=== PATIENT | female | born 1955 | race African-American/Black ===

== ENCOUNTER 2016-08-19 08:56 | Emergency (ER) | payer MEDICAID ==
[~2016-08-19 08:56] MED LIST: ALBU6.7H INH; ALBU8I INH; AZIT250T43 PO; ECOT81TA2 PO; FURO1TAB93 PO; KCL20 PO; LISI10 PO; METO25 PO; PRED50 PO; TIOT18I INH
[2016-08-19 09:02] VITALS: BP 131/84; PULSE 64; RESP 18; TEMP 97.9; O2SAT 98
[2016-08-19] MEDS ORDERED: ASPI81TA81 PO (09:11)
[2016-08-19] MEDS ORDERED: LISI10TA3 PO (09:11)
[2016-08-19] MEDS ORDERED: METO25TA3 PO (09:11)
[2016-08-19] MEDS ORDERED: SPIRCAP INH (09:11)
[2016-08-19] MEDS ORDERED: VENTAER INH (09:11)
[2016-08-19] MEDS ORDERED: FURO1TAB60 PO (09:11)
--- NOTE | 2016-08-19 09:22 | PD ---
HPI Chief Complaint: Chest Pain Time Seen by Provider: 09:22 Travel History International Travel<30 days: No Contact w/Intl Traveler<30days: No Traveled to known affect area: No History of Present Illness HPI 60-year-old female came to the emergency room brought by EMS with history of right sided shoulder pain. Patient says this has been going on for past 3 days. She cannot recall what could've caused the pain. She doesn't think she injured herself. She says she drank some alcohol last night but otherwise does not do any drugs. She was told in [place] last year that she needed stents and coronary arteries but she refused at that time. I specifically asked her if she has done cocaine recently and she denied. Patient says she has been very tired lately. [facility] Past Medical History Narrative Medical List of her past medical, surgical, social and family history was reviewed from the nursing note. Arthritis: No Asthma: Yes Autoimmune Disease: No Blood Disorders: No Anxiety: Yes Depression: Yes Heart Rhythm Problems: No Cancer: Yes (BREAST) Cardiovascular Problems: Yes High Cholesterol: No Chemotherapy: Yes Chest Pain: No Congestive Heart Failure: Yes COPD: Yes Cerebrovascular Accident: No Diabetes: No Diminished Hearing: No Endocrine: No GERD: Yes Glaucoma: No Genitourinary: No Headaches: No Hepatitis: No Hiatal Hernia: No Hypertension: Yes Immune Disorder: No Kidney Stones: No Musculoskeletal: No Neurologic: No Psychiatric: No Reproductive: No Respiratory: Yes Migraines: No Myocardial Infarction: No Radiation Therapy: Yes Renal Failure: No Seizures: No Sickle Cell Disease: No Sleep Apnea: No Thyroid Disease: No Ulcer: No Past Surgical History Abdominal Surgery: Yes AICD: No Appendectomy: Yes Arteriovenous Shunt: No Cardiac Surgery: No Ear Surgery: No Endocrine Surgery: No Eye Surgery: No Genitourinary Surgery: No Gynecologic Surgery: No Hysterectomy: Yes Insulin Pump: No Joint Replacement: No Mastectomy: Yes (LEFT) Oral Surgery: No Pacemaker: No Thoracic Surgery: No Other Surgery: Yes (LYMPH NODE REMOVAL LT) Social History Alcohol Use: Yes (2/DAY) Tobacco Use: No Substance Use: No Allergies-Medications (Allergen,Severity, Reaction): Coded Allergies: Taxol (Verified Adverse Reaction, Severe, Anaphylaxis, 07/27/15) Comments List of her allergies reviewed from the nursing note. Reported Meds & Prescriptions Reported Meds & Active Scripts Active Reported Ventolin Hfa 18 GM Inh (Albuterol Sulfate) 90 Mcg/Act Aer 2 Puff INH Q4H PRN Spiriva Handihaler (Tiotropium Inh) 18 Mcg Cap 18 Mcg INH DAILY 1 capsule = 18 mcg Lisinopril 10 Mg Tab 10 Mg PO DAILY Metoprolol Tartrate 25 Mg Tab 25 Mg PO BID Lasix (Furosemide) 40 Mg Tab 40 Mg PO DAILY Aspir-81 (Aspirin) 81 Mg Tabdr 81 Mg PO DAILY Narrative Medication List of her home medications reviewed from the nursing note. Review of Systems Except as stated in HPI: all other systems reviewed are Neg Physical Exam Narrative GENERAL: Sleepy but wakes up upon calling her name, alert, mild distress SKIN: Focused skin assessment warm/dry. HEAD: Atraumatic. Normocephalic. EYES: Pupils equal and round. No scleral icterus. No injection or drainage. ENT: No nasal bleeding or discharge. Mucous membranes pink and moist. NECK: Trachea midline. No JVD. CARDIOVASCULAR: Regular rate and rhythm. No murmur appreciated. RESPIRATORY: No accessory muscle use. Clear to auscultation. Breath sounds equal bilaterally. Tenderness on palpation over the right clavicle. GASTROINTESTINAL: Abdomen soft, non-tender, nondistended. Hepatic and splenic margins not palpable. MUSCULOSKELETAL: No obvious deformities. No clubbing. No cyanosis. No edema. NEUROLOGICAL: Sleepy and tired looking but wakes up upon calling her name. No obvious cranial nerve deficits. Motor grossly within normal limits. Normal speech. PSYCHIATRIC: Appropriate mood and affect; insight and judgment normal. Data Data Last Documented VS Vital Signs Date Time Temp Pulse Resp B/P Pulse Ox O2 Delivery O2 Flow Rate FiO2 08/19/16 14:09 65 18 130/90 98 08/19/16 10:58 Room Air 08/19/16 09:02 97.9 Orders Electrocardiogram (08/19/16 09:22) Basic Metabolic Panel (Bmp) (08/19/16 09:22) Ckmb (Isoenzyme) Profile (08/19/16 09:22) Complete Blood Count With Diff (08/19/16 09:22) Magnesium (Mg) (08/19/16 09:22) Prothrombin Time / Inr (Pt) (08/19/16 09:22) Troponin I (08/19/16 09:22) Chest, Single Ap (08/19/16 09:22) Ecg Monitoring (08/19/16 09:22) Bilateral Bp Monitoring (08/19/16 09:22) Iv Access Insert/Monitor (08/19/16 09:22) Oximetry (08/19/16 09:22) Oxygen Administration (08/19/16 09:22) Sodium Chloride 0.9% Flush (Ns Flush) (08/19/16 09:30) Drug Screen, Random Urine (08/19/16 09:38) Aspirin Chew (Aspirin Chew) (08/19/16 09:45) Potassium Chloride (Kcl) (08/19/16 10:45) Ct Pulmonary Angiogram (08/19/16 ) Iohexol 350 Inj (Omnipaque 350 Inj) (08/19/16 12:24) Labs Laboratory Tests Test 08/19/16 08/19/16 09:15 09:50 White Blood Count 6.5 TH/MM3 Red Blood Count 4.51 MIL/MM3 Hemoglobin 12.6 GM/DL Hematocrit 38.1 % Mean Corpuscular Volume 84.5 FL Mean Corpuscular Hemoglobin 27.9 PG Mean Corpuscular Hemoglobin 33.0 % Concent Red Cell Distribution Width 15.3 % Platelet Count 249 TH/MM3 Mean Platelet Volume 9.9 FL Neutrophils (%) (Auto) 58.3 % Lymphocytes (%) (Auto) 29.8 % Monocytes (%) (Auto) 8.8 % Eosinophils (%) (Auto) 2.0 % Basophils (%) (Auto) 1.1 % Neutrophils # (Auto) 3.8 TH/MM3 Lymphocytes # (Auto) 1.9 TH/MM3 Monocytes # (Auto) 0.6 TH/MM3 Eosinophils # (Auto) 0.1 TH/MM3 Basophils # (Auto) 0.1 TH/MM3 CBC Comment DIFF FINAL Differential Comment Prothrombin Time 11.3 SEC Prothromb Time International 1.0 RATIO Ratio Sodium Level 138 MEQ/L Potassium Level 3.0 MEQ/L Chloride Level 104 MEQ/L Carbon Dioxide Level 24.4 MEQ/L Anion Gap 10 MEQ/L Blood Urea Nitrogen 19 MG/DL Creatinine 0.95 MG/DL Estimat Glomerular Filtration 73 ML/MIN Rate Random Glucose 112 MG/DL Calcium Level 8.6 MG/DL Magnesium Level 1.8 MG/DL Total Creatine Kinase 61 U/L Troponin I 0.02 NG/ML Urine Opiates Screen NEG Urine Barbiturates Screen NEG Urine Amphetamines Screen NEG Urine Benzodiazepines Screen NEG Urine Cocaine Screen POS Urine Cannabinoids Screen NEG MDM Medical Decision Making Medical Screen Exam Complete: Yes Emergency Medical Condition: Yes Medical Record Reviewed: Yes Interpretation(s) Twelve-lead EKG was reviewed by me normal sinus rhythm, left axis deviation, anterior lateral T wave inversion. Heart rate of 62 bpm. Differential Diagnosis Nasal lesion, pneumonia, atelectasis Narrative Course 2:04 PM blood test results of back and within normal limit. Her troponin is negative. Patient has tested positive for cocaine in her urine drug screen. CT chest was done which does not show any embolism or dissection. I will discharge her home at this point given her chest pain being on the right shoulder and clavicular area. Procedures EKG Prior to Arrival: No Diagnosis Primary Impression: Right shoulder pain Qualified Code: M25.511 - Acute pain of right shoulder Additional Impression: Cocaine abuse Referrals: Primary Care Physician Additional Instructions: Please return to the ER if the condition worsens or any other new concerns. Otherwise follow-up with her primary care. Disposition: 01 DISCHARGE HOME Condition: Stable Liz Lucio MD Aug 19, 2016 09:22 Liz Lucio MD Aug 19, 2016 09:22
[2016-08-19] MEDS ORDERED: SODIUM CHLORIDE 0.9% FLUSH 10 ML FLUSH IVF PRN (09:30)
[2016-08-19] MEDS ORDERED: ASPIRIN 81 MG CHEW TAB CHEW ONE (09:45)
[2016-08-19 09:54] LABS: AUTOMATED NEUTROPHIL # 3.8 TH/MM3 (1.8-7.7); BASOPHIL # 0.1 TH/MM3 (0-0.2); BASOPHIL % 1.1 % (0.0-2.0); EOSINOPHIL # 0.1 TH/MM3 (0-0.4); HEMATOCRIT 38.1 % (35.0-46.0); HEMO FLAGS DIFF FINAL; LYMPH % 29.8 % (9.0-44.0); LYMPHOCYTE # 1.9 TH/MM3 (1.0-4.8); MEAN CELL VOLUME 84.5 FL (80.0-100.0); MEAN CORPUSCULAR HEMOGLOBIN 27.9 PG (27.0-34.0); MONO % 8.8 % (0.0-8.0); NEUT % 58.3 % (16.0-70.0); PLATELET COUNT 249 TH/MM3 (150-450); RED BLOOD COUNT 4.51 MIL/MM3 (4.00-5.30); RED CELL DISTRIBUTION WIDTH 15.3 % (11.6-17.2); WHITE BLOOD COUNT 6.5 TH/MM3 (4.0-11.0)
[2016-08-19 10:02] LABS: PROTHROMBIN TIME - PATIENT 11.3 SEC (9.8-11.6)
--- NOTE | 2016-08-19 10:02 | RADRPT ---
EXAM DATE/TIME: 08/19/2016 09:20 [facility] COMPARISON: CHEST SINGLE AP, July 27, 2015, 23:08. INDICATIONS : Shortness of breath, with cough. MEDICAL HISTORY : Carcinoma, breast. SURGICAL HISTORY : Left side lymph node removal. ENCOUNTER: Initial ACUITY: 1 day PAIN SCORE: 0/10 LOCATION: Left chest FINDINGS: The lungs are clear. The heart is minimally enlarged. The pulmonary vascularity is normal. There is n o evidence for infiltrate or failure. The portion of the bony skeleton visualized is unremarkable. CONCLUSION: Compensated cardiomegaly otherwise negative Be Oseguera MD FACR on August 19, 2016 at 9:58 Board Certified Radiologist. This report was verified electronically.
[2016-08-19 10:17] LABS: BICARBONATE 24.4 MEQ/L (21.0-32.0); MAGNESIUM 1.8 MG/DL (1.5-2.5)
[2016-08-19 10:32] LABS: AMPHETAMINE, URINE NEG (NEG); BARBITURATES, URINE NEG (NEG); COCAINE, URINE POS (NEG)
[2016-08-19] MEDS ORDERED: POTASSIUM CHLORIDE 20 MEQ CONTROLLED RELEASE TAB PO ONE (10:45)
--- NOTE | 2016-08-19 10:54 | EKG ---
Date Performed: 08/19/2016 Time Performed: 09:07:48 PTAGE: 60 years EKG: Sinus rhythm LEFT ATRIAL ENLARGEMENT BORDERLINE LEFT AXIS DEVIATION POSSIBLE RIGHT VENTRICULAR CONDUCTION DELAY L EFT VENTRICULAR HYPERTROPHY AND ST-T CHANGE ABNORMAL ECG PREVIOUS TRACING : 07/27/2015 23.03 DOCTOR: Jhonatan Vigil Interpretating Date/Time 08/19/2016 10:52:53
[2016-08-19 10:58] VITALS: BP 134/80; PULSE 66; RESP 22; O2SAT 97
[2016-08-19] MEDS ORDERED: IOHEXOL 350 MG/ML 10 ML VIAL (for RAD DIAG) IV ONE (12:24)
[2016-08-19 12:57] VITALS: PULSE 64; RESP 18
--- NOTE | 2016-08-19 13:14 | RADRPT ---
EXAM DATE/TIME: 08/19/2016 12:12 [facility] COMPARISON: No previous studies available for comparison. INDICATIONS : Shortness of breath, weakness. IV CONTRAST: 50 cc Omnipaque 350 (iohexol) IV RADIATION DOSE: 6.47 CTDIvol (mGy) MEDICAL HISTORY : Carcinoma, breast. Hypertension. Chronic obstructive pulmonary disease. SURGICAL HISTORY : Hysterectomy. Appendectomy.Mastectomy ENCOUNTER: Initial ACUITY: 3 days PAIN SCALE: 0/10 LOCATION: chest TECHNIQUE: Volumetric scanning of the chest was performed using a pulmonary embolism protocol MIP images were re constructed. Using automated exposure control and adjustment of the mA and/or kV according to patien t size, radiation dose was kept as low as reasonably achievable to obtain optimal diagnostic quality images. DICOM format image data is available electronically for review and comparison. FINDINGS: PULMONARY ARTERIES: No filling defects are seen in the pulmonary arteries through the segmental level. LUNGS: Central lobar emphysema bilaterally. Mild infiltrate in the left lung base. There is bibasilar atelec tasis with mild pleural thickening in both lung bases. PLEURAE: Mild pleural thickening in both lung bases. No definite effusions. MEDIASTINUM: There is good visualization of the great vessels of the middle mediastinum. No evidence of mediastin al or hilar adenopathy/mass. A few nonspecific mediastinal lymph nodes are demonstrated. The heart si ze is diffusely enlarged. MUSCULOSKELETAL: Within normal limits for patient age. MISCELLANEOUS: The visualized upper abdominal organs demonstrate no acute abnormality. CONCLUSION: 1. No evidence of pulmonary embolism. 2. Central lobar emphysema with a mild infiltrate in the left lung base. 3. Mild bibasilar atelectasis with some pleural thickening. 4. Compensated cardiomegaly. Ant Pickering MD on August 19, 2016 at 13:08 Board Certified Radiologist. This report was verified electronically.
[2016-08-19 13:52] VITALS: PULSE 68; RESP 22
[2016-08-19 14:09] VITALS: BP 130/90
== END 2016-08-19 14:12 | disposition home or self-care (01) ==
LOC: NEPE 08:56
DX: M25.511 Pain in right shoulder (principal); F14.10 Cocaine abuse, uncomplicated; R06.02 Shortness of breath; I50.9 Heart failure, unspecified; R05 Cough; J44.9 Chronic obstructive pulmonary disease, unspecified; I10 Essential (primary) hypertension; K21.9 Gastro-esophageal reflux disease without esophagitis; R94.31 Abnormal electrocardiogram [ECG] [EKG]; Z85.3 Personal history of malignant neoplasm of breast
CPT/HCPCS: 71010; 71275; 80048; 80307; 82550; 83735; 84484; 85025; 85610; 93005; 99285; Q9967

== ENCOUNTER 2017-06-27 22:04 | Emergency (ER) | payer MEDICAID ==
[~2017-06-27] VITALS: Ht 167.6 cm; Wt 70.0 kg
[~2017-06-27 22:04] MED LIST changes: -ALBU6.7H INH; -ALBU8I INH; +ASPI81TA81 PO; -AZIT250T43 PO; -ECOT81TA2 PO; +FURO1TAB60 PO; -FURO1TAB93 PO; -KCL20 PO; -LISI10 PO; +LISI10TA3 PO; -METO25 PO; +METO25TA3 PO; -PRED50 PO; +SPIRCAP INH; -TIOT18I INH; +VENTAER INH
[2017-06-27 22:15] VITALS: BP 188/100; PULSE 86; RESP 20; TEMP 98; O2SAT 98
[2017-06-27 22:17] VITALS: BP 175/123; PULSE 84; RESP 20; O2SAT 98
[2017-06-27 22:22] VITALS: RESP 20
--- NOTE | 2017-06-27 22:37 | PD ---
HPI Chief Complaint: Abdominal Pain Time Seen by Provider: 22:18 Travel History International Travel<30 days: No Contact w/Intl Traveler<30days: No Traveled to known affect area: No History of Present Illness HPI The patient is a 61 year old female who presents to the [facility] emergency department with a history of abdominal pain that began after eating approximately 2 hours ago. The patient reports that the pain is severe and has been constant. The patient reports that the pain is sharp in character and present all over her abdomen. She reports that she has had nausea and vomiting 5 times since the onset. She denies having any diarrhea currently, however she did have diarrhea last week. She is unsure when she last moved her bowels. She reports that she has had an appendectomy, otherwise no other abdominal surgeries. She denies having any known recent fevers, dysuria, hematuria, urinary urgency, or frequency. On review of systems otherwise, she denies having any cough, congestion, neck pain, chest pain, shortness of breath, or neurologic symptoms. [facility] Past Medical History Narrative Medical The patient's past medical history is significant for hypertension, COPD, history of a nonischemic cardiomyopathy with an ejection fraction of approximately 25%, history of left breast cancer status post chemotherapy and radiation therapy in 2007. Arthritis: No Asthma: Yes Autoimmune Disease: No Blood Disorders: No Anxiety: Yes Depression: Yes Heart Rhythm Problems: No Cancer: Yes (BREAST) Cardiovascular Problems: Yes High Cholesterol: No Chemotherapy: Yes Chest Pain: No Congestive Heart Failure: Yes COPD: Yes Cerebrovascular Accident: No Diabetes: No Diminished Hearing: No Endocrine: No GERD: Yes Glaucoma: No Genitourinary: No Headaches: No Hepatitis: No Hiatal Hernia: No Hypertension: Yes Immune Disorder: No Kidney Stones: No Musculoskeletal: No Neurologic: No Psychiatric: No Reproductive: No Respiratory: Yes Immunizations Current: Yes Migraines: No Myocardial Infarction: No Radiation Therapy: Yes Renal Failure: No Seizures: No Sickle Cell Disease: No Sleep Apnea: No Thyroid Disease: No Ulcer: No Tetanus Vaccination: < 5 Years Influenza Vaccination: Yes ?: Not Past Surgical History Narrative Surgical The patient's past surgical history is significant for an appendectomy, axillary lymph node dissection Abdominal Surgery: Yes AICD: No Appendectomy: Yes Arteriovenous Shunt: No Cardiac Surgery: No Ear Surgery: No Endocrine Surgery: No Eye Surgery: No Genitourinary Surgery: No Gynecologic Surgery: No Hysterectomy: Yes Insulin Pump: No Joint Replacement: No Mastectomy: Yes (LEFT) Oral Surgery: No Pacemaker: No Thoracic Surgery: No Other Surgery: Yes (LYMPH NODE REMOVAL LT) Social History Alcohol Use: Yes (2/DAY) Tobacco Use: No Substance Use: No Allergies-Medications (Allergen,Severity, Reaction): Coded Allergies: paclitaxel (Unverified Adverse Reaction, Severe, Anaphylaxis, 06/27/17) Reported Meds & Prescriptions Reported Meds & Active Scripts Active Phenergan (Promethazine HCl) 25 Mg Tablet 25 Mg PO Q8HR PRN Macrobid (Nitrofurantoin Monoh/Nitrofur Macro) 100 Mg Cap 100 Mg PO BID 7 Days Diflucan (Fluconazole) 150 Mg Tab 150 Mg PO ONCE Reported Ventolin Hfa 18 GM Inh (Albuterol Sulfate) 90 Mcg/Act Aer 2 Puff INH Q4H PRN Spiriva Handihaler (Tiotropium Inh) 18 Mcg Cap 18 Mcg INH DAILY 1 capsule = 18 mcg Lisinopril 10 Mg Tab 10 Mg PO DAILY Metoprolol Tartrate 25 Mg Tab 25 Mg PO BID Lasix (Furosemide) 40 Mg Tab 40 Mg PO DAILY Aspir-81 (Aspirin) 81 Mg Tabdr 81 Mg PO DAILY Review of Systems Except as stated in HPI: all other systems reviewed are Neg General / Constitutional: No: Fever Eyes: No: Visual changes HENT: No: Headaches Cardiovascular: No: Chest Pain or Discomfort Respiratory: No: Shortness of Breath Gastrointestinal: Positive: Nausea, Vomiting, Diarrhea, Abdominal Pain, Changes in Bowel Habits, No: Hematemesis, Hematochezia, Indigestion, Loss of Appetite Genitourinary: No: Dysuria Musculoskeletal: No: Pain Skin: No Rash Neurologic: No: Weakness, Focal Abnormalities, Change in Mentation, Slurred Speech, Sensory Disturbance Psychiatric: No: Depression Endocrine: No: Polydipsia Hematologic/Lymphatic: No: Easy Bruising Physical Exam Narrative General: The patient is a well-developed well-nourished female, uncomfortable appearing on examination, rolling around in the bed, intermittently moaning. Head and Neck exam: Head is normocephalic atraumatic. Eyes: EOMI, pupils are equal round and reactive to light. Nose: Midline septum with pink mucous membranes Mouth: Dentition unremarkable. Moist mucus membranes. Posterior oropharynx is not erythematous. No tonsillar hypertrophy. Uvula midline. Airway patent. Neck: No palpable lymphadenopathy. No nuchal rigidity. No thyromegaly. Cardiovascular: Regular rate and rhythm without murmurs, gallops, or rubs. No pulse deficit to the extremities on simultaneous auscultation and palpation of her radial artery. Lungs: Clear to auscultation bilaterally. No wheezes, rhonchi, or rales. Abdomen: Soft, with reported diffuse tenderness on palpation. No specific point tenderness on palpation over McBurney's point. Normal bowel sounds are audible no guarding, rebound, or rigidity. Negative Morales sign. Extremities: No clubbing, cyanosis, or edema. 2+ pulses in all 4 extremities. No calf tenderness on palpation. Back: No spinous process tenderness to palpation. No costovertebral angle tenderness to palpation. Neurologic Exam: Grossly nonfocal. Skin Exam: No rash noted. Intact skin that is warm and dry. Data Data Last Documented VS Vital Signs Date Time Temp Pulse Resp B/P (MAP) Pulse Ox O2 Delivery O2 Flow Rate FiO2 06/28/17 03:46 06/27/17 22:22 20 06/27/17 22:17 84 98 Room Air 06/27/17 22:15 98.0 Orders Orders Electrocardiogram (06/27/17 22:19) Complete Blood Count With Diff (06/27/17 22:19) Comprehensive Metabolic Panel (06/27/17 22:19) Creatine Kinase (Cpk) (06/27/17 22:19) Ckmb (Isoenzyme) Profile (06/27/17 22:19) Troponin I (06/27/17 22:19) Prothrombin Time / Inr (Pt) (06/27/17 22:19) Act Partial Throm Time (Ptt) (06/27/17 22:19) C-Reactive Protein (Crp) (06/27/17 22:19) Lipase (06/27/17 22:19) Urinalysis - C+S If Indicated (06/27/17 22:19) Magnesium (Mg) (06/27/17 22:19) Chest, Single Ap (06/27/17 22:19) Iv Access Insert/Monitor (06/27/17 22:19) Ecg Monitoring (06/27/17 22:19) Oximetry (06/27/17 22:19) Lactic Acid (06/27/17 22:19) Ct Abd/Pel W Iv Contrast(Rout) (06/27/17 22:19) Morphine Inj (Morphine Inj) (06/27/17 22:45) Prochlorperazine Inj (Compazine Inj) (06/27/17 22:45) Sodium Chlor 0.9% 250 Ml Inj (Ns 250 Ml (06/27/17 23:00) Morphine Inj (Morphine Inj) (06/27/17 23:45) Morphine Inj (Morphine Inj) (06/27/17 23:42) Iohexol 350 Inj (Omnipaque 350 Inj) (06/27/17 23:58) Sodium Chlor 0.9% 250 Ml Inj (Ns 250 Ml (06/28/17 00:45) Oral Rehydration (06/28/17 00:33) Cath For Specimen (06/28/17 01:03) Acetamin-Hydrocod 325-5 Mg ([place] 5-325 (06/28/17 01:45) Labs Laboratory Tests Test 06/27/17 22:25 06/28/17 01:36 White Blood Count 9.1 TH/MM3 Red Blood Count 5.33 MIL/MM3 Hemoglobin 14.4 GM/DL Hematocrit 43.9 % Mean Corpuscular Volume 82.4 FL Mean Corpuscular Hemoglobin 27.0 PG Mean Corpuscular Hemoglobin Concent 32.8 % Red Cell Distribution Width 14.3 % Platelet Count 318 TH/MM3 Mean Platelet Volume 9.1 FL Neutrophils (%) (Auto) 64.7 % Lymphocytes (%) (Auto) 26.6 % Monocytes (%) (Auto) 6.6 % Eosinophils (%) (Auto) 1.6 % Basophils (%) (Auto) 0.5 % Neutrophils # (Auto) 5.9 TH/MM3 Lymphocytes # (Auto) 2.4 TH/MM3 Monocytes # (Auto) 0.6 TH/MM3 Eosinophils # (Auto) 0.1 TH/MM3 Basophils # (Auto) 0.0 TH/MM3 CBC Comment DIFF FINAL Differential Comment Prothrombin Time 11.0 SEC Prothromb Time International Ratio 1.1 RATIO Activated Partial Thromboplast Time 21.5 SEC Blood Urea Nitrogen 12 MG/DL Creatinine 0.96 MG/DL Random Glucose 158 MG/DL Total Protein 8.0 GM/DL Albumin 3.4 GM/DL Calcium Level 8.9 MG/DL Magnesium Level 2.1 MG/DL Alkaline Phosphatase 116 U/L Aspartate Amino Transf (AST/SGOT) 28 U/L Alanine Aminotransferase (ALT/SGPT) 27 U/L Total Bilirubin 0.4 MG/DL Sodium Level 144 MEQ/L Potassium Level 3.9 MEQ/L Chloride Level 109 MEQ/L Carbon Dioxide Level 25.0 MEQ/L Anion Gap 10 MEQ/L Estimat Glomerular Filtration Rate 72 ML/MIN Lactic Acid Level 1.3 mmol/L Total Creatine Kinase 77 U/L Troponin I LESS THAN 0.02 NG/ML C-Reactive Protein 0.67 MG/DL Lipase 265 U/L Urine Color YELLOW Urine Turbidity HAZY Urine pH 5.5 Urine Specific [place] GREATER THAN 1.050 Urine Protein 30 mg/dL Urine Glucose (UA) 70 mg/dL Urine Ketones 10 mg/dL Urine Occult Blood SMALL Urine Nitrite NEG Urine Bilirubin NEG Urine Urobilinogen LESS THAN 2.0 MG/DL Urine Leukocyte Esterase NEG Urine RBC 3 /hpf Urine WBC 4 /hpf Urine Squamous Epithelial Cells 5 /hpf Urine Bacteria OCC /hpf Urine Yeast with Hyphae RARE Urine Yeast (Budding) RARE Microscopic Urinalysis Comment CULT NOT INDICATED MDM Medical Decision Making Medical Screen Exam Complete: Yes Emergency Medical Condition: Yes Medical Record Reviewed: Yes Differential Diagnosis Biliary colic, versus acute cholecystitis, versus pancreatitis, versus bowel obstruction Narrative Course During the course of the patient's emergency department visit, the patient's history, examination, and differential diagnosis were reviewed with the patient. The patient was placed on a finisher card tender with oximetry and frequent blood pressure monitoring. The patient had IV access obtained and blood work sent for analysis. The patient had a EKG done on arrival. The patient's EKG reveals a sinus rhythm with a sinus arrhythmia heart rate of 83, QRS duration is 97 ms, QTC 468 ms. The patient meets voltage criteria for left ventricular hypertrophy. The patient has T waves that are inverted in V5, V6, 1, aVL. No acute ST segment elevation. The patient was initially provided gentle hydration due to her history of congestive heart failure with normal saline at 250 mL bolus 1, morphine for pain, Zofran for nausea. The patient's laboratory studies were reviewed and remarkable for 06/27/17 22:25 Total Protein 8.0, Albumin 3.4, Calcium Level 8.9, Magnesium Level 2.1, Alkaline Phosphatase 116, Aspartate Amino Transf (AST/SGOT) 28, Alanine Aminotransferase (ALT/SGPT) 27, Total Bilirubin 0.4, cardiac enzymes were within normal limits, C-reactive protein 0.67, lipase 85, lactic acid within normal limits at 1.3. PT 11, PTT 21.5, urinalysis shows concentrated urine, 30 protein, 70 glucose, 10 ketones, small blood with 3 RBCs, 4 WBCs, occasional bacteria, rare budding yeast and hyphae. Culture not indicated. Radiology studies were reviewed and remarkable for Last Impressions Chest X-Ray [id number] Signed Impressions: Service Date/Time: Tuesday, June 27, 2017 22:28 - CONCLUSION: Cardiomegaly. Juan Herrera MD Abdomen/Pelvis CT [id number] Signed Impressions: Service Date/Time: Tuesday, June 27, 2017 23:55 - CONCLUSION: 1. Trace pleural fluid with peribronchial thickening at the bases and minimal inflammatory change. 2. Mild fatty liver. No acute findings within the abdomen or pelvis. Chalino Christie MD The patient was started on oral rehydration therapy. The patient tolerated this well. The patient is resting comfortably and feels better, is alert and in no distress. The patient's results and examination findings were discussed with the patient. The repeat examination is unremarkable and benign. The history, exam, diagnostic testing, and current condition do not suggest any significant pathology to warrant further testing, continued ED treatment, admission, or surgical evaluation at this point. The vital signs have been stable. The patient does not have uncontrollable pain, intractable vomiting, or other significant symptoms. The patient's condition is stable and appropriate for discharge. The patient will pursue further outpatient evaluation with a primary care physician or other designated or consulting physician as indicated in the discharge instructions. The patient expressed understanding and was agreeable with this plan. Diagnosis Primary Impression: Abdominal pain Qualified Codes: R10.84 - Generalized abdominal pain Additional Impression: Urinary tract infection Qualified Codes: N39.0 - Urinary tract infection, site not specified Referrals: Primary Care Physician 2 days Patient Instructions: Abdominal Pain (ED), General Instructions, Urinary Tract Infection in Women (ED) Med/Other Pt SpecificInfo: Prescription(s) given Scripts Promethazine (Phenergan) 25 Mg Tablet 25 MG PO Q8HR Y for NAUSEA OR VOMITING, #6 TAB 0 Refills Prov: Jacque Montes De Oca MD 06/28/17 Nitrofurantoin Monohydrate Macrocrystals (Macrobid) 100 Mg Cap 100 MG PO BID for Infection for 7 Days, #14 CAP 0 Refills Prov: Jacque Montes De Oca MD 06/28/17 Fluconazole (Diflucan) 150 Mg Tab 150 MG PO ONCE for Infection, #1 TAB 0 Refills Prov: Jacque Montes De Oca MD 06/28/17 Disposition: 01 DISCHARGE HOME Condition: Stable Jacque Montes De Oca MD June 27, 2017 22:37
[2017-06-27 22:38] LABS: AUTOMATED NEUTROPHIL # 5.9 TH/MM3 (1.8-7.7); BASOPHIL % 0.5 % (0.0-2.0); EOSINOPHIL # 0.1 TH/MM3 (0-0.4); EOSINOPHIL % 1.6 % (0.0-4.0); HEMATOCRIT 43.9 % (35.0-46.0); HEMOGLOBIN 14.4 GM/DL (11.6-15.3); LYMPH % 26.6 % (9.0-44.0); LYMPHOCYTE # 2.4 TH/MM3 (1.0-4.8); MEAN CELL VOLUME 82.4 FL (80.0-100.0); MEAN CORPUSCULAR HGB CONC 32.8 % (32.0-36.0); MEAN PLATELET VOLUME 9.1 FL (7.0-11.0); MONO % 6.6 % (0.0-8.0); MONOCYTE # 0.6 TH/MM3 (0-0.9); NEUT % 64.7 % (16.0-70.0); PLATELET COUNT 318 TH/MM3 (150-450); RED BLOOD COUNT 5.33 MIL/MM3 (4.00-5.30); RED CELL DISTRIBUTION WIDTH 14.3 % (11.6-17.2); WHITE BLOOD COUNT 9.1 TH/MM3 (4.0-11.0)
[2017-06-27] MEDS ORDERED: MORPHINE SULFATE 4 MG/ML INJ IV PUSH ONE (22:45)
[2017-06-27] MEDS ORDERED: PROCHLORPERAZINE INJ 10 MG/2 ML VIAL IV PUSH ONE (22:45)
--- NOTE | 2017-06-27 22:45 | RADRPT ---
EXAM DATE/TIME: 06/27/2017 22:28 [facility] COMPARISON: CHEST SINGLE AP, August 19, 2016, 9:20. INDICATIONS : Abdominal pain. MEDICAL HISTORY : Carcinoma, breast. Hypertension Chronic obstructive pulmonary disease. SURGICAL HISTORY : Hysterectomy. Appendectomy. Mastectomy ENCOUNTER: Initial ACUITY: 1 day PAIN SCORE: 10/10 LOCATION: Bilateral abdomen FINDINGS: A single view of the chest demonstrates the lungs to be symmetrically aerated without evidence of mas s, infiltrate or effusion. Cardiomegaly. The cardiomediastinal contours are unremarkable. Osseous s tructures are intact. CONCLUSION: Cardiomegaly. Juan Herrera MD on June 27, 2017 at 22:42 Board Certified Radiologist. This report was verified electronically.
[2017-06-27 22:49] LABS: INTERNATIONAL NORMALIZED RATIO 1.1 RATIO
[2017-06-27] MEDS ORDERED: SODIUM CHLOR 0.9% 250 ML INJ 250 ML IV ONE (23:00)
[2017-06-27 23:04] LABS: ALBUMIN 3.4 GM/DL (3.4-5.0); ALT (GPT) 27 U/L (10-53); AST (GOT) 28 U/L (15-37); BLOOD UREA NITROGEN 12 MG/DL (7-18); CALCIUM 8.9 MG/DL (8.5-10.1); CHLORIDE 109 MEQ/L (98-107); CREATININE 0.96 MG/DL (0.50-1.00); GLOMERULAR FILTRATION RATE 72 ML/MIN (>89); GLUCOSE,RANDOM 158 MG/DL (74-106); MAGNESIUM 2.1 MG/DL (1.5-2.5); SODIUM (NA) 144 MEQ/L (136-145)
[2017-06-27 23:07] LABS: ALKALINE PHOSPHATASE 116 U/L (45-117); C-REACTIVE PROTEIN 0.67 MG/DL (0.00-0.30); TOTAL BILIRUBIN ADULT 0.4 MG/DL (0.2-1.0); TROPONIN I LESS THAN 0.02 NG/ML (0.02-0.05)
[2017-06-27] MEDS ORDERED: MORPHINE SULFATE 8 MG/ML INJ ONE (23:42)
[2017-06-27] MEDS ORDERED: MORPHINE SULFATE 8 MG/ML INJ IV PUSH ONE (23:45)
[2017-06-27] MEDS ORDERED: IOHEXOL 350 MG/ML 10 ML VIAL (for RAD DIAG) IVCONTRAST ONE (23:58)
--- NOTE | 2017-06-28 00:15 | RADRPT ---
EXAM DATE/TIME: 06/27/2017 23:55 [facility] COMPARISON: No previous studies available for comparison. INDICATIONS : Abdominal pain and vomiting. IV CONTRAST: 70 cc Omnipaque 350 (iohexol) IV ORAL CONTRAST: No oral contrast ingested. RADIATION DOSE: 7.27 CTDIvol (mGy) MEDICAL HISTORY : Cardiovascular disease. Carcinoma, breast. Chronic obstructive pulmonary disease.GERD SURGICAL HISTORY : Appendectomy. Hysterectomy. ENCOUNTER: Initial ACUITY: 1 day PAIN SCALE: 6/10 LOCATION: abdomen TECHNIQUE: Volumetric scanning of the abdomen and pelvis was performed. Using automated exposure control and ad justment of the mA and/or kV according to patient size, radiation dose was kept as low as reasonably achievable to obtain optimal diagnostic quality images. DICOM format image data is available electro nically for review and comparison. FINDINGS: Lung bases demonstrate some peribronchial thickening and mild ground glass opacity which may represen t mild inflammatory change. There is a trace right and left pleural effusion. Mildly enlarged right h ilar lymph node. Mild fatty liver. Spleen, adrenals and pancreas unremarkable. No acute findings in the kidneys. No fr ee fluid. No bowel obstruction. No adenopathy. CONCLUSION: 1. Trace pleural fluid with peribronchial thickening at the bases and minimal inflammatory change. 2. Mild fatty liver. No acute findings within the abdomen or pelvis. Chalino Christie MD on June 28, 2017 at 0:04 Board Certified Radiologist. This report was verified electronically.
[2017-06-28] MEDS ORDERED: SODIUM CHLOR 0.9% 250 ML INJ 250 ML IV ONE (00:45)
[2017-06-28] MEDS ORDERED: ACETAMINOPHEN/HYDROcodone 325 MG/5 MG TAB PO ONE (01:45)
[2017-06-28 01:53] LABS: BACTERIA, URINE OCC /hpf; BILIRUBIN, URINE NEG (NEG); BLOOD, URINE SMALL (NEG); GLUCOSE,URINE 70 mg/dL (NEG); KETONE, URINE 10 mg/dL (NEG); NITRITE,URINE NEG (NEG); PH, URINE 5.5 (5.0-8.5); SQUAMOUS EPITHELIAL CELL URINE 5 /hpf (0-5); URINE COLOR YELLOW (YELLW/STRAW); URINE LEUKOCYTE ESTERASE NEG (NEG)
[2017-06-28] MEDS ORDERED: DIFL150T PO (02:49)
[2017-06-28] MEDS ORDERED: MACR100C2 PO (02:49)
[2017-06-28] MEDS ORDERED: PROM25TA10 PO (02:51)
--- NOTE | 2017-06-28 20:58 | EKG ---
Date Performed: 06/27/2017 Time Performed: 22:25:16 PTAGE: 61 years EKG: Sinus rhythm WITH SINUS ARRHYTHMIA LEFT ATRIAL ENLARGEMENT MARKED LEFT AXIS DEVIATION POSSIBLE RIGHT VENTRICULAR CONDUCTION DELAY LEFT VENTRICULAR HYPERTROPHY AND ST-T CHANGE Consider anterolateral ischemia. ABNORM AL ECG PREVIOUS TRACING : 08/19/2016 09.07 DOCTOR: Sixto Frye Interpretating Date/Time 06/28/2017 20:57:19
== END 2017-06-28 03:49 | disposition home or self-care (01) ==
LOC: NEPE 22:04
DX: R10.84 Generalized abdominal pain (principal); N39.0 Urinary tract infection, site not specified; R11.2 Nausea with vomiting, unspecified; R94.31 Abnormal electrocardiogram [ECG] [EKG]; I10 Essential (primary) hypertension; J44.9 Chronic obstructive pulmonary disease, unspecified; I50.9 Heart failure, unspecified; K21.9 Gastro-esophageal reflux disease without esophagitis; Z85.3 Personal history of malignant neoplasm of breast; Z86.79 Personal history of other diseases of the circulatory system; Z86.59 Personal history of other mental and behavioral disorders
CPT/HCPCS: 71045; 74177; 80053; 81001; 82550; 83605; 83690; 83735; 84484; 85025; 85610; 85730; 86140; 93005; 96361; 96374; 96375; 96376; J0780; J2270; J7050; Q9967

== ENCOUNTER 2017-06-28 16:51 | Inpatient (IN) | payer MEDICAID ==
[~2017-06-28] VITALS: Ht 162.6 cm; Wt 73.3 kg
[2017-06-28] MEDS: SODIUM CHLOR 0.9% 1000 ML INJ 1,000 ML IV SCH ×2 (01:30→22:27)
[~2017-06-28 16:51] MED LIST changes: +DIFL150T PO; +IOHEXOL 350 MG/ML 10 ML VIAL (for RAD DIAG) IVCONTRAST ONE; +LACTATED RINGER'S 1000 ML INJ 2,000 ML IV ONE; +LIDOCAINE HCL 1% PF 5 ML SYRINGE OTHER ONE; +MACR100C2 PO; +METOPROLOL TARTRATE 5 MG/5 ML VIAL IV ONE; +NORMOSOL R INJ 1,000 ML IV ONE; +PHENYLEPH/NS 1000 MCG/10 ML SYR IV ONE; +PHENYLEPHRINE HCL 10 MG/ML VIAL IV ONE; +PROM25TA10 PO; +PROPOFOL 200 MG/20 ML AMP IV ONE; +ROCURONIUM INJ 50 MG/5 ML SYRINGE IV PUSH ONE; +SODIUM CHLOR 0.9% 250 ML INJ 250 ML IV ONE; +SODIUM CHLORID 0.9% 500 ML INJ 500 ML IV ONE; +SUCCINYLCHOLINE CHLORIDE 100 MG/5 ML SYRINGE IV PUSH ONE; +ePHEDrine/NS 25 MG/5 ML SYRINGE IV ONE
[2017-06-28] MEDS ORDERED: IOHEXOL 350 MG/ML 10 ML VIAL (for RAD DIAG) IVCONTRAST ONE (16:52)
[2017-06-28 17:03] VITALS: BP 141/95; PULSE 118; RESP 18; TEMP 97.8; O2SAT 96
[2017-06-28] MEDS ORDERED: METOCLOPRAMIDE HCL 10 MG/2 ML VIAL IV PUSH ONE ×2 (17:30→19:15)
[2017-06-28] MEDS ORDERED: MORPHINE SULFATE 4 MG/ML INJ IV PUSH ONE ×2 (17:30→19:15)
[2017-06-28] MEDS ORDERED: SODIUM CHLORIDE 0.9% FLUSH 10 ML FLUSH IV FLUSH PRN ×2 (17:30→22:30)
--- NOTE | 2017-06-28 17:37 | PD ---
HPI Chief Complaint: Abdominal Pain Time Seen by Provider: 17:19 Travel History International Travel<30 days: No Contact w/Intl Traveler<30days: No Traveled to known affect area: No History of Present Illness HPI 61-year-old female presents to the emergency department for evaluation of generalized abdominal pain. Patient was seen last night for the same. She states the pain has not improved. She states she has not had pain like this before. Current pain is 10/10, sharp throughout the abdomen. She reports swelling, but no fevers. She denies any chest pain. She reports chronic shortness of breath. She denies any vomiting or diarrhea. Patient reports history of appendectomy, but no other abdominal surgeries. Patient was seen last night had labs, CT, chest x-ray completed. She was discharged with no emergent abnormality was found. Patient denies exacerbating or alleviating factors. Moderate severity. PFSH Past Medical History Arthritis: No Asthma: Yes Autoimmune Disease: No Blood Disorders: No Anxiety: Yes Depression: Yes Heart Rhythm Problems: No Cancer: Yes (BREAST) Cardiovascular Problems: Yes High Cholesterol: No Chemotherapy: Yes Chest Pain: No Congestive Heart Failure: Yes COPD: Yes Cerebrovascular Accident: No Diabetes: No Diminished Hearing: No Endocrine: No GERD: Yes Glaucoma: No Genitourinary: No Headaches: No Hepatitis: No Hiatal Hernia: No Hypertension: Yes Immune Disorder: No Kidney Stones: No Musculoskeletal: No Neurologic: No Psychiatric: No Reproductive: No Respiratory: Yes Immunizations Current: Yes Migraines: No Myocardial Infarction: No Radiation Therapy: Yes Renal Failure: No Seizures: No Sickle Cell Disease: No Sleep Apnea: No Thyroid Disease: No Ulcer: No Past Surgical History Abdominal Surgery: Yes AICD: No Appendectomy: Yes Arteriovenous Shunt: No Cardiac Surgery: No Ear Surgery: No Endocrine Surgery: No Eye Surgery: No Genitourinary Surgery: No Gynecologic Surgery: No Hysterectomy: Yes Insulin Pump: No Joint Replacement: No Mastectomy: Yes (LEFT) Oral Surgery: No Pacemaker: No Thoracic Surgery: No Other Surgery: Yes (LYMPH NODE REMOVAL LT) Social History Alcohol Use: Yes (2/DAY) Tobacco Use: No Substance Use: No Allergies-Medications (Allergen,Severity, Reaction): Coded Allergies: paclitaxel (Unverified Adverse Reaction, Severe, Anaphylaxis, 06/28/17) Reported Meds & Prescriptions Reported Meds & Active Scripts Active Phenergan (Promethazine HCl) 25 Mg Tablet 25 Mg PO Q8HR PRN Macrobid (Nitrofurantoin Monoh/Nitrofur Macro) 100 Mg Cap 100 Mg PO BID 7 Days Diflucan (Fluconazole) 150 Mg Tab 150 Mg PO ONCE Reported Ventolin Hfa 18 GM Inh (Albuterol Sulfate) 90 Mcg/Act Aer 2 Puff INH Q4H PRN Spiriva Handihaler (Tiotropium Inh) 18 Mcg Cap 18 Mcg INH DAILY 1 capsule = 18 mcg Lisinopril 10 Mg Tab 10 Mg PO DAILY Metoprolol Tartrate 25 Mg Tab 25 Mg PO BID Lasix (Furosemide) 40 Mg Tab 40 Mg PO DAILY Aspir-81 (Aspirin) 81 Mg Tabdr 81 Mg PO DAILY Review of Systems Except as stated in HPI: all other systems reviewed are Neg Physical Exam Narrative GENERAL: Well-nourished, well-developed female patient, afebrile. SKIN: Focused skin assessment warm/dry. HEAD: Normocephalic. Atraumatic. EYES: No scleral icterus. No injection or drainage. NECK: Supple, trachea midline. No JVD or lymphadenopathy. CARDIOVASCULAR: Regular rhythm without murmurs, gallops, or rubs. Patient is tachycardic. RESPIRATORY: Breath sounds equal bilaterally. No accessory muscle use. Lung sounds are clear to auscultation peer GASTROINTESTINAL: Abdomen soft and nondistended. Patient has diffuse tenderness to palpation. MUSCULOSKELETAL: No cyanosis, or edema. BACK: Nontender without obvious deformity. No CVA tenderness. Data Data Last Documented VS Vital Signs Date Time Temp Pulse Resp B/P (MAP) Pulse Ox O2 Delivery O2 Flow Rate FiO2 06/28/17 21:10 110 20 139/83 (101) 92 Room Air 06/28/17 17:03 97.8 Orders Orders Complete Blood Count With Diff (06/28/17 17:25) Comprehensive Metabolic Panel (06/28/17 17:25) Lipase (06/28/17 17:25) Prothrombin Time / Inr (Pt) (06/28/17:25) Act Partial Throm Time (Ptt) (06/28/17 17:25) Urinalysis - C+S If Indicated (06/28/17 17:25) Iv Access Insert/Monitor (06/28/17 17:25) Ecg Monitoring (06/28/17 17:25) Oximetry (06/28/17 17:25) Morphine Inj (Morphine Inj) (06/28/17 17:30) Sodium Chloride 0.9% Flush (Ns Flush) (06/28/17 17:30) Metoclopramide Inj (Reglan Inj) (06/28/17 17:30) Abdomen, Kub Only (06/28/17 ) Dicyclomine Inj (Bentyl Inj) (06/28/17 17:45) Al-Mag Hy-Si 40-40-4 Mg/Ml Liq (Mag-Al P (06/28/17 17:45) Lidocaine 2% Viscous (Xylocaine 2% Visco (06/28/17 17:45) Ct Abd/Pel W Iv Contrast(Rout) (06/28/17 ) Morphine Inj (Morphine Inj) (06/28/17 19:15) Metoclopramide Inj (Reglan Inj) (06/28/17 19:15) Chest, Single Ap (06/28/17 ) Blood Culture (06/28/17 19:33) Lactic Acid Sepsis Protocol (06/28/17 19:33) Iohexol 350 Inj (Omnipaque 350 Inj) (06/28/17 16:52) Ciprofloxacin 400 Mg Premix (Cipro 400 M (06/28/17 21:30) Metronidazole 500 Mg Inj (Flagyl 500 Mg (06/28/17 21:30) Heparin Inj (Heparin Inj) (06/28/17 21:24) Heparin Inj (Heparin Inj) (06/29/17 03:30) Heparin Inj (Heparin Inj) (06/29/17 03:30) Heparin-D5w 25,000 U/250 Ml (Heparin-D5w (06/28/17 21:30) Cbc No Diff, Includes Plts (06/28/17 21:24) Cbc No Diff, Includes Plts (07/01/17 06:00) Act Partial Throm Time (Ptt) (06/29/17 04:24) Occult Blood (Hemoccult) Stool (06/28/17 21:24) Type And Screen (06/28/17 21:33) Admit Order (Ed Use Only) (06/28/17 21:36) Electrocardiogram (06/28/17 ) Labs Laboratory Tests Test 06/28/17 18:00 06/28/17 19:05 06/28/17 19:35 06/28/17 21:00 White Blood Count 20.0 TH/MM3 Red Blood Count 6.04 MIL/MM3 Hemoglobin 16.6 GM/DL Hematocrit 51.1 % Mean Corpuscular Volume 84.6 FL Mean Corpuscular Hemoglobin 27.4 PG Mean Corpuscular Hemoglobin Concent 32.4 % Red Cell Distribution Width 15.0 % Platelet Count 259 TH/MM3 Mean Platelet Volume 9.5 FL Neutrophils (%) (Auto) 89.7 % Lymphocytes (%) (Auto) 3.3 % Monocytes (%) (Auto) 6.9 % Eosinophils (%) (Auto) 0.0 % Basophils (%) (Auto) 0.1 % Neutrophils # (Auto) 18.0 TH/MM3 Lymphocytes # (Auto) 0.7 TH/MM3 Monocytes # (Auto) 1.4 TH/MM3 Eosinophils # (Auto) 0.0 TH/MM3 Basophils # (Auto) 0.0 TH/MM3 CBC Comment DIFF FINAL Differential Comment Blood Urea Nitrogen 12 MG/DL Creatinine 0.80 MG/DL Random Glucose 99 MG/DL Total Protein 6.0 GM/DL Albumin 2.4 GM/DL Calcium Level 6.8 MG/DL Alkaline Phosphatase 88 U/L Aspartate Amino Transf (AST/SGOT) 67 U/L Alanine Aminotransferase (ALT/SGPT) 27 U/L Total Bilirubin 0.8 MG/DL Sodium Level 144 MEQ/L Potassium Level 3.5 MEQ/L Chloride Level 114 MEQ/L Carbon Dioxide Level 16.8 MEQ/L Anion Gap 13 MEQ/L Estimat Glomerular Filtration Rate 89 ML/MIN Protein Corrected Calcium 7.4 MG/DL Lipase 64 U/L Prothrombin Time 12.7 SEC Prothromb Time International Ratio 1.3 RATIO Activated Partial Thromboplast Time 21.9 SEC Urine Color YELLOW Urine Turbidity HAZY Urine pH 5.0 Urine Specific [place] 1.022 Urine Protein 30 mg/dL Urine Glucose (UA) NEG mg/dL Urine Ketones NEG mg/dL Urine Occult Blood TRACE Urine Nitrite NEG Urine Bilirubin NEG Urine Urobilinogen LESS THAN 2.0 MG/DL Urine Leukocyte Esterase NEG Urine RBC LESS THAN 1 /hpf Urine WBC 1 /hpf Urine Squamous Epithelial Cells 4 /hpf Urine Bacteria OCC /hpf Urine Hyaline Casts 3 /lpf Urine Mucus FEW /lpf Microscopic Urinalysis Comment CULT NOT INDICATED MDM Medical Decision Making Medical Screen Exam Complete: Yes Emergency Medical Condition: Yes Medical Record Reviewed: Yes Interpretation(s) Last Impressions Chest X-Ray 06/28/17 0000 Signed Impressions: Service Date/Time: Wednesday, June 28, 2017 19:20 - CONCLUSION: /Improvement in aeration Justo Sigala MD Abdomen/Pelvis CT 06/28/17 0000 Signed Impressions: Service Date/Time: Wednesday, June 28, 2017 20:18 - CONCLUSION: SMA occlusion with likely bowel infarction and findings as described above Justo Sigala MD Abdomen X-Ray 06/28/17 0000 Signed Impressions: Service Date/Time: Wednesday, June 28, 2017 18:43 - CONCLUSION: Mild nonspecific gaseous distention of bowel Justo Sigala MD Differential Diagnosis pancreatitis vs. diverticulitis vs. UTI vs. ulcer Narrative Course 61-year-old female presents to the emergency department for evaluation of abdominal pain. Patient was seen last night for the same. CBC showed no acute abnormality. CMP showed no acute abnormality. Lactic acid was 1.3. CK is 77. Troponin was less than 0.02. Magnesium was 2.1. Lipase was 265. Coags showed no acute abnormality. UA showed occasional bacteria, rare yeast. Chest x-ray showed cardiomegaly. CT abdomen/pelvis showed no acute findings within the abdomen or pelvis. IV access established. CBC, CMP, lipase, PTT, PT/INR, UA ordered and pending. KUB is ordered and pending. Patient is given Bentyl 20 mg IM, GI cocktail. CBC shows leukocytosis 20.0. CMP shows protein corrected calcium 7.4. Lipase is 64. Coags show no acute abnormal. UA is negative for acute infection. KUB shows mild nonspecific gaseous distention of bowel peer Due to elevated leukocytosis, CT of the abdomen/pelvis with IV contrast was repeated. CT abdomen/pelvis shows SMA occlusion with likely bowel infarction and findings as described above. My attending physician, Dr. Holloway, spoke with Dr. Sommer, vascular surgeon national sales trainer. He is going to take the patient to the OR and would like the patient to be admitted to [facility]. Patient is to be started on Cipro and Flagyl and a heparin drip. These orders are placed. Dr. Jensen, recruiter coordinator, accepted admission. Diagnosis Primary Impression: Occlusion of superior mesenteric artery Additional Impression: Acute bowel infarction Admitting Information Admitting Physician Requests: Admit Karen Li June 28, 2017 17:37
[2017-06-28] MEDS ORDERED: LIDOCAINE VISCOUS 2% SOLN 15 ML UDC PO ONE (17:45)
[2017-06-28] MEDS ORDERED: ALUMINUM/MAGNESIUM/SIMETH 30 ML CUP PO ONE (17:45)
[2017-06-28] MEDS ORDERED: DICYCLOMINE HCL 20 MG/2 ML VIAL IM ONE (17:45)
[2017-06-28 18:22] VITALS: BP 159/86; PULSE 112; RESP 20; O2SAT 92
[2017-06-28 18:54] LABS: BASOPHIL % 0.1 % (0.0-2.0); HEMATOCRIT 51.1 % (35.0-46.0); HEMOGLOBIN 16.6 GM/DL (11.6-15.3); LYMPH % 3.3 % (9.0-44.0); LYMPHOCYTE # 0.7 TH/MM3 (1.0-4.8); MEAN CELL VOLUME 84.6 FL (80.0-100.0); MEAN CORPUSCULAR HEMOGLOBIN 27.4 PG (27.0-34.0); MEAN CORPUSCULAR HGB CONC 32.4 % (32.0-36.0); MEAN PLATELET VOLUME 9.5 FL (7.0-11.0); MONO % 6.9 % (0.0-8.0); MONOCYTE # 1.4 TH/MM3 (0-0.9); NEUT % 89.7 % (16.0-70.0); PLATELET COUNT 259 TH/MM3 (150-450); RED BLOOD COUNT 6.04 MIL/MM3 (4.00-5.30)
[2017-06-28 19:13] LABS: CREATININE 0.8 MG/DL (0.50-1.00)
[2017-06-28 19:14] LABS: ALBUMIN 2.4 GM/DL (3.4-5.0); CALCIUM 6.8 MG/DL (8.5-10.1); TOTAL BILIRUBIN ADULT 0.8 MG/DL (0.2-1.0)
[2017-06-28 19:15] LABS: BICARBONATE 16.8 MEQ/L (21.0-32.0)
--- NOTE | 2017-06-28 19:28 | RADRPT ---
EXAM DATE/TIME: 06/28/2017 18:43 [facility] COMPARISON: No previous studies available for comparison. INDICATIONS : Upper abdomen pain MEDICAL HISTORY : Cardiovascular disease. Carcinoma, breast. Chronic obstructive pulmonary disease.GERD SURGICAL HISTORY : Appendectomy. Hysterectomy ENCOUNTER: Initial ACUITY: 2 days PAIN SCORE: 3/10 LOCATION: Bilateral Abdomen FINDINGS: There is mild nonspecific gaseous distention of bowel over the abdomen. There are phleboliths overlyi ng the pelvis. Regional skeleton is grossly intact. CONCLUSION: Mild nonspecific gaseous distention of bowel Justo Sigala MD on June 28, 2017 at 19:25 Board Certified Radiologist. This report was verified electronically.
[2017-06-28 19:29] LABS: CALCIUM-PROTEIN CORRECTED 7.4 MG/DL (8.5-10.1)
--- NOTE | 2017-06-28 19:41 | RADRPT ---
EXAM DATE/TIME: 06/28/2017 19:20 [facility] COMPARISON: CHEST SINGLE AP, June 27, 2017, 22:28. INDICATIONS : Shortness of breath. MEDICAL HISTORY : Cardiovascular disease. Carcinoma, breast. Chronic obstructive pulmonary disease.GERD SURGICAL HISTORY : Appendectomy. Hysterectomy. ENCOUNTER: Initial ACUITY: 1 day PAIN SCORE: 6/10 LOCATION: Bilateral chest FINDINGS: There has been slight improvement in aeration with decreased interstitial prominence. Slight atelecta sis in the right lung base. Cardiac contours are stable with borderline heart size. CONCLUSION: /Improvement in aeration Justo Sigala MD on June 28, 2017 at 19:38 Board Certified Radiologist. This report was verified electronically.
[2017-06-28 20:00] LABS: BACTERIA, URINE OCC /hpf; BILIRUBIN, URINE NEG (NEG); BLOOD, URINE TRACE (NEG); GLUCOSE,URINE NEG (NEG); HYALINE CAST, URINE 3 /lpf (RARE); KETONE, URINE NEG (NEG); MUCUS URINE FEW /lpf (OCC); NITRITE,URINE NEG (NEG); SQUAMOUS EPITHELIAL CELL URINE 4 /hpf (0-5); URINE COLOR YELLOW (YELLW/STRAW); URINE LEUKOCYTE ESTERASE NEG (NEG)
[2017-06-28 20:10] LABS: INTERNATIONAL NORMALIZED RATIO 1.3 RATIO; PROTHROMBIN TIME - PATIENT 12.7 SEC (9.8-11.6)
--- NOTE | 2017-06-28 21:07 | RADRPT ---
EXAM DATE/TIME: 06/28/2017 20:18 [facility] COMPARISON: CHEST SINGLE AP, June 28, 2017, 19:20. CT ABDOMEN & PELVIS W CONTRAST, June 27, 2017, 23:55. INDICATIONS : Abdomen pain. IV CONTRAST: 80 cc Omnipaque 350 (iohexol) IV ORAL CONTRAST: No oral contrast ingested. RADIATION DOSE: 6.05 CTDIvol (mGy) MEDICAL HISTORY : Cardiovascular disease. Hypertension. Carcinoma, breast.COPD SURGICAL HISTORY : Hysterectomy. ENCOUNTER: Subsequent ACUITY: 1 day PAIN SCALE: 10/10 LOCATION: Bilateral abdomen TECHNIQUE: Volumetric scanning of the abdomen and pelvis was performed. Using automated exposure control and ad justment of the mA and/or kV according to patient size, radiation dose was kept as low as reasonably achievable to obtain optimal diagnostic quality images. DICOM format image data is available electro nically for review and comparison. FINDINGS: LOWER LUNGS: Mild groundglass infiltrate in the lung bases. Cardiac enlargement. LIVER: There is no mild perihepatic fluid which was not present previously. No evidence of focal liver mass or biliary ductal dilatation. SPLEEN: Normal size without lesion. PANCREAS: Within normal limits. KIDNEYS: Normal in size and shape. There is no mass, stone or hydronephrosis. ADRENAL GLANDS: Within normal limits. VASCULAR: The aorta is widely patent and normal in caliber. The superior mesenteric artery occludes 4-5 cm beyo nd its origin with eccentric thrombus leading up to the level of total occlusion. The inferior mesent frandy artery is patent. BOWEL/MESENTERY: There has been interval development of moderate dilatation of the stomach and small bowel with air-fl uid levels present. The colon is decompressed. ABDOMINAL WALL: Within normal limits. RETROPERITONEUM: There is no lymphadenopathy. BLADDER: No wall thickening or mass. REPRODUCTIVE: Uterus is surgically absent. No evidence of pelvic mass. INGUINAL: There is no lymphadenopathy or hernia. MUSCULOSKELETAL: Within normal limits for patient age. CONCLUSION: SMA occlusion with likely bowel infarction and findings as described above Justo Sigala MD on June 28, 2017 at 20:54 Board Certified Radiologist. This report was verified electronically.
[2017-06-28 21:10] VITALS: BP 139/83; PULSE 110; RESP 20; O2SAT 92
[2017-06-28] MEDS ORDERED: HEPARIN - 10,000 UNITS/ML IV ADDITIVE IV PUSH STA (21:24)
[2017-06-28] MEDS ORDERED: metroNIDAZOLE 500 MG INJ 100 ML IV ONE (21:30)
[2017-06-28] MEDS ORDERED: CIPROFLOXACIN 400 MG PREMIX 200 ML IV ONE (21:30)
[2017-06-28] MEDS ORDERED: HEPARIN-D5W 25,000 U/250 ML 250 ML IV PRN (21:30)
--- NOTE | 2017-06-28 21:40 | PD ---
Physical Exam Date Seen by Provider: June 28, 2017 Time Seen by Provider: 21:37 Narrative GENERAL: Well-developed well-nourished elderly female ill-appearing with sinus tachycardia heart rate 110 normotensive blood pressure 139 over in room air O2 saturation 93-96%; patient appears to be sleeping but readily awakens to her name complains of abdominal pain SKIN: Cool and dry. HEAD: Normocephalic. EYES: No scleral icterus. No injection or drainage. NECK: Supple, trachea midline. No JVD or lymphadenopathy. CARDIOVASCULAR: Increased regular rate and rhythm without murmurs, gallops, or rubs. RESPIRATORY: Breath sounds equal bilaterally without rales or rhonchi. No accessory muscle use. GASTROINTESTINAL: Abdomen soft, diffusely tender with voluntary guarding and rebound, nondistended. MUSCULOSKELETAL: No cyanosis, or edema. BACK: Nontender without obvious deformity. No CVA tenderness. Data Data Last Documented VS Vital Signs Date Time Temp Pulse Resp B/P (MAP) Pulse Ox O2 Delivery O2 Flow Rate FiO2 06/28/17 21:10 110 20 139/83 (101) 92 Room Air 06/28/17 17:03 97.8 Orders Orders Complete Blood Count With Diff (06/28/17 17:25) Comprehensive Metabolic Panel (06/28/17 17:25) Lipase (06/28/17 17:25) Prothrombin Time / Inr (Pt) (06/28/17 17:25) Act Partial Throm Time (Ptt) (06/28/17 17:25) Urinalysis - C+S If Indicated (06/28/17 17:25) Iv Access Insert/Monitor (06/28/17 17:25) Ecg Monitoring (06/28/17 17:25) Oximetry (06/28/17 17:25) Morphine Inj (Morphine Inj) (06/28/17 17:30) Sodium Chloride 0.9% Flush (Ns Flush) (06/28/17 17:30) Metoclopramide Inj (Reglan Inj) (06/28/17 17:30) Abdomen, Kub Only (06/28/17 ) Dicyclomine Inj (Bentyl Inj) (06/28/17 17:45) Al-Mag Hy-Si 40-40-4 Mg/Ml Liq (Mag-Al P (06/28/17 17:45) Lidocaine 2% Viscous (Xylocaine 2% Visco (06/28/17 17:45) Ct Abd/Pel W Iv Contrast(Rout) (06/28/17 ) Morphine Inj (Morphine Inj) (06/28/17 19:15) Metoclopramide Inj (Reglan Inj) (06/28/17 19:15) Chest, Single Ap (06/28/17 ) Blood Culture (06/28/17 19:33) Lactic Acid Sepsis Protocol (06/28/17 19:33) Iohexol 350 Inj (Omnipaque 350 Inj) (06/28/17 16:52) Ciprofloxacin 400 Mg Premix (Cipro 400 M (06/28/17 21:30) Metronidazole 500 Mg Inj (Flagyl 500 Mg (06/28/17 21:30) Heparin Inj (Heparin Inj) (06/28/17 21:24) Heparin Inj (Heparin Inj) (06/29/17 03:30) Heparin Inj (Heparin Inj) (06/29/17 03:30) Heparin-D5w 25,000 U/250 Ml (Heparin-D5w (06/28/17 21:30) Cbc No Diff, Includes Plts (06/28/17 21:24) Cbc No Diff, Includes Plts (07/01/17 06:00) Occult Blood (Hemoccult) Stool (06/28/17 21:24) Type And Screen (06/28/17 21:33) Admit Order (Ed Use Only) (06/28/17 21:36) Red Blood Cells (Rbc) (06/28/17 21:50) Labs Laboratory Tests Test 06/28/17 18:00 06/28/17 19:05 06/28/17 19:35 06/28/17 21:00 White Blood Count 20.0 TH/MM3 Red Blood Count 6.04 MIL/MM3 Hemoglobin 16.6 GM/DL Hematocrit 51.1 % Mean Corpuscular Volume 84.6 FL Mean Corpuscular Hemoglobin 27.4 PG Mean Corpuscular Hemoglobin Concent 32.4 % Red Cell Distribution Width 15.0 % Platelet Count 259 TH/MM3 Mean Platelet Volume 9.5 FL Neutrophils (%) (Auto) 89.7 % Lymphocytes (%) (Auto) 3.3 % Monocytes (%) (Auto) 6.9 % Eosinophils (%) (Auto) 0.0 % Basophils (%) (Auto) 0.1 % Neutrophils # (Auto) 18.0 TH/MM3 Lymphocytes # (Auto) 0.7 TH/MM3 Monocytes # (Auto) 1.4 TH/MM3 Eosinophils # (Auto) 0.0 TH/MM3 Basophils # (Auto) 0.0 TH/MM3 CBC Comment DIFF FINAL Differential Comment Blood Urea Nitrogen 12 MG/DL Creatinine 0.80 MG/DL Random Glucose 99 MG/DL Total Protein 6.0 GM/DL Albumin 2.4 GM/DL Calcium Level 6.8 MG/DL Alkaline Phosphatase 88 U/L Aspartate Amino Transf (AST/SGOT) 67 U/L Alanine Aminotransferase (ALT/SGPT) 27 U/L Total Bilirubin 0.8 MG/DL Sodium Level 144 MEQ/L Potassium Level 3.5 MEQ/L Chloride Level 114 MEQ/L Carbon Dioxide Level 16.8 MEQ/L Anion Gap 13 MEQ/L Estimat Glomerular Filtration Rate 89 ML/MIN Protein Corrected Calcium 7.4 MG/DL Lipase 64 U/L Prothrombin Time 12.7 SEC Prothromb Time International Ratio 1.3 RATIO Activated Partial Thromboplast Time 21.9 SEC Urine Color YELLOW Urine Turbidity HAZY Urine pH 5.0 Urine Specific [place] 1.022 Urine Protein 30 mg/dL Urine Glucose (UA) NEG mg/dL Urine Ketones NEG mg/dL Urine Occult Blood TRACE Urine Nitrite NEG Urine Bilirubin NEG Urine Urobilinogen LESS THAN 2.0 MG/DL Urine Leukocyte Esterase NEG Urine RBC LESS THAN 1 /hpf Urine WBC 1 /hpf Urine Squamous Epithelial Cells 4 /hpf Urine Bacteria OCC /hpf Urine Hyaline Casts 3 /lpf Urine Mucus FEW /lpf Microscopic Urinalysis Comment CULT NOT INDICATED Lactic Acid Level 4.2 mmol/L [facility] Medical Record Reviewed: Yes Supervised Visit with MYNOR: Yes Interpretation(s) Last Impressions Chest X-Ray 06/28/17 0000 Signed Impressions: Service Date/Time: Wednesday, June 28, 2017 19:20 - CONCLUSION: /Improvement in aeration Justo Sigala MD Abdomen/Pelvis CT 06/28/17 0000 Signed Impressions: Service Date/Time: Wednesday, June 28, 2017 20:18 - CONCLUSION: SMA occlusion with likely bowel infarction and findings as described above Justo Sigala MD Abdomen X-Ray 06/28/17 0000 Signed Impressions: Service Date/Time: Wednesday, June 28, 2017 18:43 - CONCLUSION: Mild nonspecific gaseous distention of bowel Justo Sigala MD CBC & BMP Diagram 06/28/17 18:00 Total Protein 6.0 #L, Albumin 2.4 #L, Calcium Level 6.8 #*L, Alkaline Phosphatase 88, Aspartate Amino Transf (AST/SGOT) 67 H, Alanine Aminotransferase (ALT/SGPT) 27, Total Bilirubin 0.8 Vital Signs Date Time Temp Pulse Resp B/P (MAP) Pulse Ox O2 Delivery O2 Flow Rate FiO2 06/28/17 21:10 110 20 139/83 (101) 92 Room Air 06/28/17 18:22 112 20 159/86 (110) 92 Room Air 06/28/17 17:03 97.8 118 18 141/95 (110) 96 Differential Diagnosis Abdominal pain, bowel obstruction, perforated viscus, pancreatitis, ascending cholangitis, also consider ischemic colitis/ischemic bowel Narrative Course CT abdomen pelvis report called consistent with superior mesenteric artery occlusion and infarcted bowel per reading radiologist Call placed to vascular surgeon Dr. Sommer request patient to be started on heparin IV antibiotics and will see the patient in the emergency department plan to take her to the OR request assistant director of security to be called for admission to the [facility] Physician Communication Physician Communication Case discussed with on-call vascular surgeon Dr. Sommer reports he will be in to see the patient within 15 minutes and will be taking her to the OR would like to see her in the emergency department; @ 9:52 Dr Sommer at the patient's bedside Diagnosis Primary Impression: Occlusion of superior mesenteric artery Admitting Information Admitting Physician Requests: Admit Lucy Holloway MD June 28, 2017 21:40
[2017-06-28] MEDS ORDERED: HEPARIN SODIUM - IV 10,000 UNITS/10 ML VIAL ONE (21:56)
[2017-06-28] MEDS ORDERED: HEPARIN SODIUM - SQ 10,000 UNITS/ML VIAL ONE ×2 (22:00→22:14)
[2017-06-28] MEDS ORDERED: SODIUM CHLORID 0.9% 500 ML INJ 500 ML IV ONE ×2 (22:00)
--- NOTE | 2017-06-28 22:07 | PD.VS.CON ---
History of Present Illness Chief Complaint: abdominal pain Consult Requested by: ER, Dr. Holloway History of Present Illness 61 yo female with 1d of exquisite abdominal pain, worse today. Presented to ED tonight and had CT of abdomen that shows SMA occlusion non-orificial c/w embolus. Pt is obtunded so limited history available. Past/Family/Social History Past Medical History unclear. She notes "no medical problems" Past Surgical History appy via lower midline incision according to ED. Social History unclear Family History unclear Home Medications Active Scripts Promethazine (Phenergan) 25 Mg Tablet, 25 MG PO Q8HR Y for NAUSEA OR VOMITING, # 6 TAB 0 Refills Prov:Jacque Montes De Oca MD 06/28/17 Nitrofurantoin Monohydrate Macrocrystals (Macrobid) 100 Mg Cap, 100 MG PO BID for Infection for 7 Days, #14 CAP 0 Refills Prov:Jacque Montes De Oca MD 06/28/17 Fluconazole (Diflucan) 150 Mg Tab, 150 MG PO ONCE for Infection, #1 TAB 0 Refills Prov:Jacque Montes De Oca MD 06/28/17 Reported Medications Albuterol 18 GM Inh (Ventolin Hfa 18 GM Inh) 90 Mcg/Act Aer, 2 PUFF INH Q4H Y for SHORTNESS OF BREATH, #1 INHALER 0 Refills 08/19/16 Tiotropium Inh (Spiriva Handihaler) 18 Mcg Cap, 18 MCG INH DAILY for COPD, #30 CAP 0 Refills 1 capsule = 18 mcg 08/19/16 Lisinopril (Lisinopril) 10 Mg Tab, 10 MG PO DAILY, #30 TAB 0 Refills 08/19/16 Metoprolol Tartrate (Metoprolol Tartrate) 25 Mg Tab, 25 MG PO BID, #60 TAB 0 Refills 08/19/16 Furosemide (Lasix) 40 Mg Tab, 40 MG PO DAILY, #30 TAB 0 Refills 08/19/16 Aspirin (Aspir-81) 81 Mg Tabdr, 81 MG PO DAILY 08/19/16 Coded Allergies: paclitaxel (Unverified Adverse Reaction, Severe, Anaphylaxis, 06/28/17) Review of Systems ROS Limitations: Altered Mental Status Physical Exam Vitals/I&O Date Time Temp Pulse Resp B/P (MAP) Pulse Ox O2 Delivery O2 Flow Rate FiO2 06/28/17 21:10 110 20 139/83 (101) 92 Room Air 06/28/17 18:22 112 20 159/86 (110) 92 Room Air 06/28/17 17:03 97.8 118 18 141/95 (110) 96 Neuro: somnolent, moving all extremities HEENT: NC/AT; anicteric sclera Neck: no JVD Heart: reg rate, tachy but no M Lungs: clear B Abdomen: exquisitely tender, diffusely upper abdomen Vascular: palpable UE pulses and femoral pulses Laboratory Tests Test 06/28/17 18:00 06/28/17 19:05 06/28/17 19:35 06/28/17 21:00 White Blood Count 20.0 Red Blood Count 6.04 Hemoglobin 16.6 Hematocrit 51.1 Mean Corpuscular Volume 84.6 Mean Corpuscular Hemoglobin 27.4 Mean Corpuscular Hemoglobin Concent 32.4 Red Cell Distribution Width 15.0 Platelet Count 259 Mean Platelet Volume 9.5 Neutrophils (%) (Auto) 89.7 Lymphocytes (%) (Auto) 3.3 Monocytes (%) (Auto) 6.9 Eosinophils (%) (Auto) 0.0 Basophils (%) (Auto) 0.1 Neutrophils # (Auto) 18.0 Lymphocytes # (Auto) 0.7 Monocytes # (Auto) 1.4 Eosinophils # (Auto) 0.0 Basophils # (Auto) 0.0 CBC Comment DIFF FINAL Differential Comment Blood Urea Nitrogen 12 Creatinine 0.80 Random Glucose 99 Total Protein 6.0 Albumin 2.4 Calcium Level 6.8 Alkaline Phosphatase 88 Aspartate Amino Transf (AST/SGOT) 67 Alanine Aminotransferase (ALT/SGPT) 27 Total Bilirubin 0.8 Sodium Level 144 Potassium Level 3.5 Chloride Level 114 Carbon Dioxide Level 16.8 Anion Gap 13 Estimat Glomerular Filtration Rate 89 Protein Corrected Calcium 7.4 Lipase 64 Prothrombin Time 12.7 Prothromb Time International Ratio 1.3 Activated Partial Thromboplast Time 21.9 Urine Color YELLOW Urine Turbidity HAZY Urine pH 5.0 Urine Specific [place] 1.022 Urine Protein 30 Urine Glucose (UA) NEG Urine Ketones NEG Urine Occult Blood TRACE Urine Nitrite NEG Urine Bilirubin NEG Urine Urobilinogen LESS THAN 2.0 Urine Leukocyte Esterase NEG Urine RBC LESS THAN 1 Urine WBC 1 Urine Squamous Epithelial Cells 4 Urine Bacteria OCC Urine Hyaline Casts 3 Urine Mucus FEW Microscopic Urinalysis Comment CULT NOT INDICATED Date/Time Source Procedure Growth Status 06/28/17 21:05 Blood Peripheral Aerobic Blood Culture Pending Received 06/28/17 21:05 Blood Peripheral Anaerobic Blood Culture Pending Received Last 48 hours Impressions Chest X-Ray 06/28/17 0000 Signed Impressions: Service Date/Time: Wednesday, June 28, 2017 19:20 - CONCLUSION: /Improvement in aeration Justo Sigala MD Abdomen/Pelvis CT 06/28/17 0000 Signed Impressions: Service Date/Time: Wednesday, June 28, 2017 20:18 - CONCLUSION: 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 1. To OR emergently. She is not alert enough to consent and I think this is a life-saving procedure. She doesn't speak of any family and lives with someone other than family. 2. Will consult general surgery for intra-operative assistance 3. Hep gtt 4. post-op TTE 5. Consult community life director for post-operative management Critically ill. Jan Sommer MD FACS RPVI plow and boring machine tender [facility] - Heart and Vascular Surgery at [facility] [phone] Discharge Planning critically ill, depends on course Jan Sommer MD June 28, 2017 22:07
[2017-06-28 22:12] VITALS: BP 155/85; PULSE 110; RESP 20; TEMP 98.3; O2SAT 98
[2017-06-28 22:13] LABS: LACTIC ACID SEPSIS PROTOCOL 4.2 mmol/L (0.4-2.0)
[2017-06-28] MEDS ORDERED: VANCOMYCIN HCL 1000 MG VIAL ONE (22:14)
[2017-06-28] MEDS ORDERED: HEPARIN-NS/PF INJ 500 ML ONE (22:14)
[2017-06-28] MEDS ORDERED: ceFAZolin 2 GM PREMIX 0 ML ONE (22:14)
[2017-06-28] MEDS ORDERED: THROMBIN (TOPICAL) 20,000 UNIT SPRAY KIT ONE (22:15)
[2017-06-28] MEDS ORDERED: SENNOSIDES 8.6 MG TAB PO PRN (22:30)
[2017-06-28] MEDS ORDERED: BISACODYL 10 MG SUPP RECTAL PRN (22:30)
[2017-06-28] MEDS ORDERED: RESP: ALBUTEROL 2.5 MG/IPRATROPIUM 0.5 MG NEB (PRN) INH (22:30)
[2017-06-28] MEDS ORDERED: ACETAMINOPHEN 325 MG TAB PO PRN (22:30)
[2017-06-28] MEDS ORDERED: LACTULOSE SYRUP 20 GM/30 ML CUP PO PRN (22:30)
[2017-06-28] MEDS ORDERED: MAGNESIUM HYDROXIDE SUSP 30 ML CUP PO PRN (22:30)
[2017-06-28] MEDS ORDERED: CHLORHEXIDINE GLUCONATE 2 % 1 PACK (2 CLOTHS) TOP PRN (22:30)
[2017-06-28] MEDS ORDERED: ONDANSETRON HCL 4 MG/2 ML VIAL IV PUSH PRN (22:30)
[2017-06-28] MEDS ORDERED: NURSING INFORMATION XX SCH (22:30)
[2017-06-28] MEDS ORDERED: PROMETHAZINE HCL 25 MG TAB PO PRN (22:30)
--- NOTE | 2017-06-28 22:32 | HHI.HP ---
[facility] Service Critical Care Medicine Primary Care Physician Justo Pereyra MD Admission Diagnosis SMA occlusion with bowel infarction Diagnosis: Travel History International Travel<30 Days: No Contact w/Intl Traveler <30 Da: No Traveled to Known Affected Are: No History of Present Illness 61-year-old female presents to the emergency department for evaluation of generalized abdominal pain. Patient was seen last night for the same. She states the pain has not improved. She states she has not had pain like this before. Current pain is 10/10, sharp throughout the abdomen. She reports swelling, but no fevers. She denies any chest pain. She denies any vomiting or diarrhea. Patient reports history of appendectomy, but no other abdominal surgeries. Patient was seen last night had labs, CT, chest x-ray completed. She was discharged with no emergent abnormality was found. Patient denies exacerbating or alleviating factors. 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 The patient was emergently taken to operating room for thrombectomy by a vascular surgeon. Review of Systems ROS Unable to obtain patient still lethargic Past Family Social History Allergies: Coded Allergies: paclitaxel (Unverified Adverse Reaction, Severe, Anaphylaxis, 06/28/17) Past Medical History HTN COPD Nonischemic cardiomyopathy with LVEF 25% Noncompliance with medical therapy secondary to poor social situation Left breast cancer s/p chemotherapy and radiation in 2007 Past Surgical History Axillary lymph node dissection Reported Medications Reported Meds & Active Scripts Active Phenergan (Promethazine HCl) 25 Mg Tablet 25 Mg PO Q8HR PRN Macrobid (Nitrofurantoin Monoh/Nitrofur Macro) 100 Mg Cap 100 Mg PO BID 7 Days Diflucan (Fluconazole) 150 Mg Tab 150 Mg PO ONCE Reported Ventolin Hfa 18 GM Inh (Albuterol Sulfate) 90 Mcg/Act Aer 2 Puff INH Q4H PRN Spiriva Handihaler (Tiotropium Inh) 18 Mcg Cap 18 Mcg INH DAILY 1 capsule = 18 mcg Lisinopril 10 Mg Tab 10 Mg PO DAILY Metoprolol Tartrate 25 Mg Tab 25 Mg PO BID Lasix (Furosemide) 40 Mg Tab 40 Mg PO DAILY Aspir-81 (Aspirin) 81 Mg Tabdr 81 Mg PO DAILY Active Ordered Medications Current Medications Medications (Trade) Dose Ordered Sig/Jennifer Route PRN Reason Start Time Stop Time Status Last Admin Dose Admin Heparin Sodium (Porcine) (Heparin Inj) 5,000 units UNSCH PRN IV PUSH APTT LESS THAN 25 06/29/17 03:30 Heparin Sodium (Porcine) (Heparin Inj) 2,500 units UNSCH PRN IV PUSH APTT 25 TO 39 06/29/17 03:30 Heparin Sodium/ Dextrose 250 ml @ 8 mls/hr TITRATE PRN IV Coagulation Management 06/28/17 21:30 06/28/17 22:10 Aspirin (Ecotrin Ec) 81 mg DAILY PO 06/29/17 09:00 Promethazine HCl (Phenergan) 25 mg Q8HR PRN PO NAUSEA OR VOMITING 06/28/17 22:30 Tiotropium [place] (Spiriva Inh) 18 mcg DAILY INH 06/29/17 09:00 Sodium Chloride 1,000 ml @ 84 mls/hr [id number] IV 06/28/17 22:27 Sodium Chloride (NS Flush) 2 ml UNSCH PRN IV FLUSH FLUSH AFTER USING IV ACCESS 06/28/17 22:30 Sodium Chloride (NS Flush) 2 ml BID IV FLUSH 06/29/17 09:00 Acetaminophen (Tylenol) 650 mg Q6H PRN PO PAIN 1-5 AND/OR FEVER >101F 06/28/17 22:30 Morphine Sulfate (Morphine Inj) 2 mg Q2H PRN IV PUSH PAIN SCALE 6 TO 10 06/28/17 22:30 Famotidine (Pepcid Inj) 20 mg Q12HR IV PUSH 06/29/17 09:00 Midazolam HCl (Versed Inj) 2 mg Q1H PRN IV PUSH SEDATION 06/28/17 22:30 Artificial Tears (Tears Naturale Opth Soln) 1 drop TID EACH EYE 06/29/17 09:00 Ondansetron HCl (Zofran Inj) 4 mg Q6H PRN IV PUSH NAUSEA OR VOMITING 06/28/17 22:30 Albuterol/ Ipratropium (Duoneb Neb) 1 ampule Q6HR NEB INH 06/29/17 04:00 Albuterol/ Ipratropium (Duoneb Neb) 1 ampule Q2HR NEB PRN INH WHEEZING 06/28/17 22:30 Miscellaneous Information ([facility] Nursing Information) 1 [id number] XX 06/28/17 22:30 Chlorhexidine Gluconate (Chlorhexidine 2% Cloth) 3 pack Taper DAILY@04 TOP 06/29/17 04:00 06/25/18 03:59 Chlorhexidine Gluconate (Chlorhexidine 2% Cloth) 3 pack UNSCH PRN TOP HYGIENIC CARE 06/28/17 22:30 Senna/Docusate Sodium (Maggie-Colace) 1 tab BID PO 06/29/17 09:00 Magnesium Hydroxide (Milk Of Magnesia Liq) 30 ml Q12H PRN PO Mild constipation 06/28/17 22:30 Sennosides (Senokot) 17.2 mg Q12H PRN PO Moderate constipation 06/28/17 22:30 Bisacodyl (Dulcolax Supp) 10 mg DAILY PRN RECTAL SEVERE CONSITIPATION 06/28/17 22:30 Lactulose (Lactulose Liq) 30 ml DAILY PRN PO SEVERE CONSITIPATION 06/28/17 22:30 Family History Maternal grandfather had heart disease Social History Previous tobacco user - quit in 2007, no alcohol or illicit drug abuse Physical Exam Vital Signs Vital Signs Date Time Temp Pulse Resp B/P (MAP) Pulse Ox O2 Delivery O2 Flow Rate FiO2 06/28/17 22:26 06/28/17 22:12 98.3 110 20 155/85 (108) 98 Nasal Cannula 2.00 06/28/17 21:10 110 20 139/83 (101) 92 Room Air 06/28/17 18:22 112 20 159/86 (110) 92 Room Air 06/28/17 17:03 97.8 118 18 141/95 (110) 96 Physical Exam GENERAL: Well-nourished, well-developed patient. Somnolent SKIN: Warm and dry. HEAD: Normocephalic. EYES: No scleral icterus. No injection or drainage. NECK: Supple, trachea midline. No JVD or lymphadenopathy. CARDIOVASCULAR: Regular rate and rhythm without murmurs, gallops, or rubs. RESPIRATORY: Breath sounds equal bilaterally. No accessory muscle use. GASTROINTESTINAL: Abdomen soft, tender in all 4 quadrants, nondistended. MUSCULOSKELETAL: No cyanosis, or edema. BACK: Nontender without obvious deformity. NEURO EXAM: Mental Status: The patient is extremely lethargic, moves all 4 extremities Laboratory Laboratory Tests Test 06/28/17 18:00 06/28/17 19:05 06/28/17 19:35 06/28/17 21:00 White Blood Count 20.0 Red Blood Count 6.04 Hemoglobin 16.6 Hematocrit 51.1 Mean Corpuscular Volume 84.6 Mean Corpuscular Hemoglobin 27.4 Mean Corpuscular Hemoglobin Concent 32.4 Red Cell Distribution Width 15.0 Platelet Count 259 Mean Platelet Volume 9.5 Neutrophils (%) (Auto) 89.7 Lymphocytes (%) (Auto) 3.3 Monocytes (%) (Auto) 6.9 Eosinophils (%) (Auto) 0.0 Basophils (%) (Auto) 0.1 Neutrophils # (Auto) 18.0 Lymphocytes # (Auto) 0.7 Monocytes # (Auto) 1.4 Eosinophils # (Auto) 0.0 Basophils # (Auto) 0.0 CBC Comment DIFF FINAL Differential Comment Blood Urea Nitrogen 12 Creatinine 0.80 Random Glucose 99 Total Protein 6.0 Albumin 2.4 Calcium Level 6.8 Alkaline Phosphatase 88 Aspartate Amino Transf (AST/SGOT) 67 Alanine Aminotransferase (ALT/SGPT) 27 Total Bilirubin 0.8 Sodium Level 144 Potassium Level 3.5 Chloride Level 114 Carbon Dioxide Level 16.8 Anion Gap 13 Estimat Glomerular Filtration Rate 89 Protein Corrected Calcium 7.4 Lipase 64 Prothrombin Time 12.7 Prothromb Time International Ratio 1.3 Activated Partial Thromboplast Time 21.9 Urine Color YELLOW Urine Turbidity HAZY Urine pH 5.0 Urine Specific [place] 1.022 Urine Protein 30 Urine Glucose (UA) NEG Urine Ketones NEG Urine Occult Blood TRACE Urine Nitrite NEG Urine Bilirubin NEG Urine Urobilinogen LESS THAN 2.0 Urine Leukocyte Esterase NEG Urine RBC LESS THAN 1 Urine WBC 1 Urine Squamous Epithelial Cells 4 Urine Bacteria OCC Urine Hyaline Casts 3 Urine Mucus FEW Microscopic Urinalysis Comment CULT NOT INDICATED Lactic Acid Level 4.2 Date/Time Source Procedure Growth Status 06/28/17 21:05 Blood Peripheral Aerobic Blood Culture Pending Received 06/28/17 21:05 Blood Peripheral Anaerobic Blood Culture Pending Received Result Diagram: 06/28/17 1800 06/28/17 1800 Imaging Last 24 hours Impressions Chest X-Ray 06/28/17 0000 Signed Impressions: Service Date/Time: Wednesday, June 28, 2017 19:20 - CONCLUSION: /Improvement in aeration Justo Sigala MD Abdomen/Pelvis CT 06/28/17 0000 Signed Impressions: Service Date/Time: Wednesday, June 28, 2017 20:18 - CONCLUSION: SMA occlusion with likely bowel infarction and findings as described above Justo Sigala MD Abdomen X-Ray 06/28/17 0000 Signed Impressions: Service Date/Time: Wednesday, June 28, 2017 18:43 - CONCLUSION: Mild nonspecific gaseous distention of bowel MD Kwame Muñoz VTE Risk Assessment Kwame VTE Risk Assessment: Mod/High Risk (score >= 2) Caprini Risk Assessment Model Point Value = 1 Point Value = 2 Point Value = 3 Point Value = 5 Age 41-60 Minor surgery BMI > 25 kg/m2 Swollen legs Varicose veins or History of unexplained or recurrent spontaneous Oral contraceptives or hormone replacement Sepsis (< 1 month) Serious lung disease, including pneumonia (< 1 month) Abnormal pulmonary function Acute myocardial infarction Congestive heart failure (< 1 month) History of inflammatory bowel disease Medical patient at bed rest Age 61-74 Arthroscopic surgery Major open surgery (> 45 min) Laparoscopic surgery (> 45 min) Malignancy Confined to bed (> 72 hours) Immobilizing plaster cast Central venous access Age >= 75 History of VTE Family history of VTE Factor V Leiden Prothrombin [id number] Lupus anticoagulant Anticardiolipin antibodies Elevated serum homocysteine Heparin-induced thrombocytopenia Other congenital or acquired thrombophilia Stroke (< 1 month) Elective arthroplasty Hip, pelvis, or leg fracture Acute spinal cord injury (< 1 month) Prophylaxis Regimen Total Risk Factor Score Risk Level Prophylaxis Regimen 0-1 Low Early ambulation 2 Moderate Order ONE of the following: *Sequential Compression Device (SCD) *Heparin 5000 units SQ BID 3-4 Higher Order ONE of the following medications: *Heparin 5000 units SQ TID *Enoxaparin/Lovenox 40 mg SQ daily (WT < 150 kg, CrCl > 30 mL/min) *Enoxaparin/Lovenox 30 mg SQ daily (WT < 150 kg, CrCl > 10-29 mL/min) *Enoxaparin/Lovenox 30 mg SQ BID (WT < 150 kg, CrCl > 30 mL/min) AND/OR *Sequential Compression Device (SCD) 5 or more Highest Order ONE of the following medications: *Heparin 5000 units SQ TID (Preferred with Epidurals) *Enoxaparin/Lovenox 40 mg SQ daily (WT < 150 kg, CrCl > 30 mL/min) *Enoxaparin/Lovenox 30 mg SQ daily (WT < 150 kg, CrCl > 10-29 mL/min) *Enoxaparin/Lovenox 30 mg SQ BID (WT < 150 kg, CrCl > 30 mL/min) AND *Sequential Compression Device (SCD) Assessment and Plan Assessment and Plan Respiratory failure -Post open -Continue mechanical ventilation -Chest x-ray and ABG daily -Patient may return to OR next day, will continue mechanical ventilation for now SMA occlusion - with likely bowel infarction -Status post vascular surgery -Heparin drip -Empiric Zosyn -Further management per vascular and general surgery Hypertension -Resume home meds when indicated COPD -No exacerbation -DuoNeb scheduled and as needed DVT GI prophylaxis -Everardo's and SCDs -Heparin drip -Pepcid Critical Care: The total critical care time was 35 minutes. Time to perform other separately billable procedures was not included in the critical care time. Alexandre Jensen MD June 28, 2017 10:32 pm
[2017-06-28] MEDS ORDERED: METOPROLOL TARTRATE 5 MG/5 ML VIAL ONE (23:11)
[2017-06-28] MEDS ORDERED: VASOPRESSIN 20 UNITS/ML VIAL ONE (23:45)
[2017-06-29] VITALS (17 sets, daily range): BP systolic 92–125; BP diastolic 58–82; PULSE 98–136; RESP 16–24; TEMP 98.3–100.4; O2SAT 98–100
--- NOTE | 2017-06-29 00:47 | HHI.PR ---
cc: Jan Sommer MD Immediate Post Op Note Procedure Date: June 29, 2017 Pre Op Diagnosis: Acute mesenteric ischemia, SMA thrombosis Post Op Diagnosis: Acute mesenteric ischemia, SMA thrombosis Surgeon: Jan Sommer Interventional Physician(s): Keysha Sage Procedure: SMA embolectomy Patch angioplasty of SMA Ex lap and Application of ABTHERA VAC (Dr. Dejesus) Findings: significant ischemia of small bowel but no kirk perforation acute SMA thrombosis including terminal branches restored perfusion after embolectomy but minimal improvement in appearance of bowel Complications: none apparent Specimen(s) removed: SMA contents, not for pathology Estimated blood loss: 150mL Anesthesia: General Drains: None Fluids: 2000mL IVF Urinary Output (mLs): 600 Patient to: ISC Patient Condition: Critical Implant/Devices: SEE IMPLANT LOG (if applicable) Date/Time of Procedure: SEE SURGICAL CARE RECORD Jan Sommer MD June 29, 2017 00:47
[2017-06-29] MEDS: CHLORHEXIDINE GLUCONATE 2 % 1 PACK (2 CLOTHS) TOP SCH (01:07)
[2017-06-29] MEDS ORDERED: TERBUTALINE INJ 1 MG/ML AMP SQ PRN ×2 (01:30→06:45)
[2017-06-29] MEDS: SODIUM CHLOR 0.9% 1000 ML INJ 1,000 ML IV SCH (01:30)
[2017-06-29] MEDS ORDERED: PHENYLEPHRINE 40 MG in D5W 500 ML IV PRN (02:00)
[2017-06-29] MEDS ORDERED: VASOPRESSIN 40 U/D5W 100 ML Titrate, Post Cardiac Surgery IV PRN ×2 (02:00)
[2017-06-29 02:02] LABS: HEMATOCRIT 42.6 % (35.0-46.0); HEMOGLOBIN 14.1 GM/DL (11.6-15.3); MEAN CELL VOLUME 82.3 FL (80.0-100.0); MEAN CORPUSCULAR HEMOGLOBIN 27.2 PG (27.0-34.0); MEAN PLATELET VOLUME 8.9 FL (7.0-11.0); PLATELET COUNT 234 TH/MM3 (150-450); RED BLOOD COUNT 5.18 MIL/MM3 (4.00-5.30); RED CELL DISTRIBUTION WIDTH 14.2 % (11.6-17.2); WHITE BLOOD COUNT 13.1 TH/MM3 (4.0-11.0)
[2017-06-29] MEDS: MIDAZOLAM HCL 2 MG/2 ML VIAL IV PUSH PRN ×2 (02:15→21:58)
[2017-06-29] MEDS: MORPHINE SULFATE 4 MG/ML INJ IV PUSH PRN ×2 (02:15→20:25)
[2017-06-29] MEDS: PIPERACIL-TAZO 4.5 GM PREMIX 100 ML IV SCH ×4 (02:22→19:41)
[2017-06-29 02:56] LABS: ALBUMIN 2.3 GM/DL (3.4-5.0); BICARBONATE 25.2 MEQ/L (21.0-32.0); CALCIUM 7.1 MG/DL (8.5-10.1); CALCIUM-PROTEIN CORRECTED 7.8 MG/DL (8.5-10.1); CREATININE 0.97 MG/DL (0.50-1.00); MAGNESIUM 2.2 MG/DL (1.5-2.5); PHOSPHORUS 3.2 MG/DL (2.5-4.9); TOTAL BILIRUBIN ADULT 1.2 MG/DL (0.2-1.0); TOTAL PROTEIN 5.8 GM/DL (6.4-8.2)
[2017-06-29] MEDS ORDERED: HEPARIN SODIUM - IV 10,000 UNITS/10 ML VIAL IV PUSH PRN (03:30)
[2017-06-29] MEDS ORDERED: HEPARIN - 10,000 UNITS/ML IV ADDITIVE IV PUSH PRN (03:30)
[2017-06-29] MEDS: RESP: ALBUTEROL 2.5 MG/IPRATROPIUM 0.5 MG NEB (SCH) INH ×4 (03:39→19:40)
[2017-06-29] MEDS: HEPARIN-D5W 25,000 U/250 ML 250 ML IV PRN (04:00)
[2017-06-29] MEDS: PROPOFOL 1000 MG/100 ML INJ 100 ML IV PRN ×2 (04:00→09:07)
[2017-06-29] MEDS ORDERED: CALCIUM GLUCONATE INJ 1 GM in SODIUM CHLORIDE 0.9% INJ 100 ML IV ONE (04:00)
[2017-06-29 05:18] LABS: INTERNATIONAL NORMALIZED RATIO 1.4 RATIO; PROTHROMBIN TIME - PATIENT 14.4 SEC (9.8-11.6)
[2017-06-29 05:29] LABS: AUTOMATED NEUTROPHIL # 10.8 TH/MM3 (1.8-7.7); BASOPHIL % 0.2 % (0.0-2.0); HEMATOCRIT 43.1 % (35.0-46.0); HEMOGLOBIN 14.2 GM/DL (11.6-15.3); LYMPHOCYTE # 0.9 TH/MM3 (1.0-4.8); MEAN CELL VOLUME 82.2 FL (80.0-100.0); MEAN CORPUSCULAR HEMOGLOBIN 27.2 PG (27.0-34.0); MEAN PLATELET VOLUME 9.4 FL (7.0-11.0); MONO % 9.9 % (0.0-8.0); MONOCYTE # 1.3 TH/MM3 (0-0.9); NEUT % 82.9 % (16.0-70.0); PLATELET COUNT 236 TH/MM3 (150-450); RED BLOOD COUNT 5.24 MIL/MM3 (4.00-5.30); RED CELL DISTRIBUTION WIDTH 14.3 % (11.6-17.2); WHITE BLOOD COUNT 13.1 TH/MM3 (4.0-11.0)
--- NOTE | 2017-06-29 06:38 | MB ---
cc: Chalino Dejesus MD DATE: 06/28/2017 REASON FOR CONSULTATION: Ischemic bowel CONSULTING PHYSICIAN: Jan Sommer MD. INDICATIONS: This is a 61-year-old female who was undergoing exploration by Dr. Sommer. He found a mesenteric occlusion clot and he requested my presence in the OR to evaluate the small bowel, possible resection after his thrombectomy. The patient is in the operating room for this stat intraoperative consultation. PAST MEDICAL HISTORY: Reviewed in the computer system while he is working on a thrombectomy and I reviewed the case with Dr. Sommer. She was somewhat obtunded and then came into the emergency room where a CT scan was performed showing this thrombectomy. The past medical history is all recorded in the records and will not be repeated. REVIEW OF SYSTEMS: The patient is under general anesthesia. She is not able to give me a review of systems. She has some ischemic heart disease with ejection fraction of 35-55%. PHYSICAL EXAM: Physical exam is limited to her abdominal exam in the operating room. See my operative note for details for the exploration and my physical exam. LABORATORY DATA: She has a white count of 20,000, H and H of 16 and 51. Chemistry shows a calcium of 6.8, lactic acid of 4.2. Albumin is 2.4. Her CO2 is 16, creatinine 0.8. A CT scan done earlier today read by Dr. Sigala shows an SMA occlusion with bowel infarction. ASSESSMENT AND PLAN: Superior mesenteric artery occlusion, status post thrombectomy with Dr. Jan Sommer now with ischemic bowel. See my operative note for plan and details. Of course, there is no family available for me to discuss a stat consultation in the operating room. Chalino Dejesus MD JDB/DL , 12:45 AM , 06:38 AM
[2017-06-29] MEDS ORDERED: ALBUMIN 5% INJ 500 ML IV ONE (06:45)
[2017-06-29] MEDS: LACTATED RINGER'S 1000 ML INJ 1,000 ML IV SCH ×3 (06:45→21:58)
[2017-06-29] MEDS ORDERED: MAGNESIUM SULFATE 1 GM PREMIX 100 ML IV ONE (06:45)
--- NOTE | 2017-06-29 06:45 | MP ---
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 PROCEDURE PERFORMED: Exploratory laparotomy with application of VAC device. ANESTHESIA: General. SURGEON: Dr. Dejesus. VASCULAR SURGEON: Dr. Jan Sommer. PROCEDURE: The patient is already in the operating room. Dr. Sommer has opened the patient in a midline incision. She has an SMA occlusion. He has done a thrombectomy and now has good pulses. On examination, the stomach has good perfusion. The duodenum does as well and the liver. The gallbladder was normal appearing. However, about 10 cm distal to the ligament of Treitz, the bowel was dusky with [place] ischemia all the way past the ileocecal valve and a portion of the cecum. The ascending colon and transverse colon appeared normal. Because of the amount of [place] ischemia, there is no specific segment that was obviously necrosed. At this point, with him just doing a thrombectomy, I think it is in her best interest if we allow her to be resuscitated and see if any of this bowel returns to have perfusion and viable as right now, it is somewhat questionable the entirety of the small bowel. She would not survive with a total small bowel resection. What we will plan on doing is just placing the VAC device and see how she does over the next day or 2 with a second look to reevaluate the small bowel. Unfortunately, I think at this point she has a high percentage of mortality from this ischemic event, but she will be resuscitated and see if any of this bowel returns. The VAC device was placed by cutting it to size and the appliance applied in the abdomen and then the sponge placed and the occlusive dressing and the device was connected to the suction device at 125 cm of suction. Chalino Dejesus MD JDB/DL , 12:48 AM , 06:44 AM
--- NOTE | 2017-06-29 06:57 | MP ---
cc: Jan Sommer MD DATE OF OPERATION: 06/29/2017 PREOPERATIVE DIAGNOSIS: Superior mesenteric artery occlusion, acute mesenteric ischemia. POSTOPERATIVE DIAGNOSES: Superior mesenteric artery occlusion, acute mesenteric ischemia. PROCEDURE PERFORMED: 1. Exploratory laparotomy with lysis of adhesions. 2. SMA embolectomy with patch angioplasty using bovine pericardium. ATTENDING SURGEON: Jan Sommer MD. ANDROID SOFTWARE ENGINEER SURGEON: Chalino Dejesus MD and Keysha Spring. ANESTHESIA: General. INDICATIONS FOR PROCEDURE: Ms. Rao is a 61-year-old female with multiple medical problems who presented with acute abdominal pain. She had a CT scan that was suggestive of an SMA occlusion with no distal reconstitution, as well as a metabolic acidosis and excruciating abdominal pain. She was taken to the operating room emergently. DESCRIPTION OF PROCEDURE: Informed consent was obtained from the patient. She was taken to operating room and placed supine on the operating table. An appropriate time-out was taken to ensure the patient's identity, operative procedure and planned procedure. Ciprofloxacin and Flagyl were both administered prior to the skin incision and these will be continued postoperatively for ongoing therapy of presumed bacterial translocation of her ischemic enteritis. Everyone in the room agreed with the time-out and we proceeded. A vertical midline incision made with a 10 blade, carried down to the subcutaneous tissue with electrocautery. The fascia was divided with electrocautery and the peritoneum was sharply entered. The abdominal contents were explored and showed dense adhesions from a previous lower midline incision. These were taken down with sharp dissection. The transverse colon was then dissected free and reflected cephalad. The orogastric tube was found to be in the stomach and much of the small bowel was marginally viable. The SMA was palpated. There was no pulse in it. We incised the mesentery and dissect down the SMA including several jejunal branches. We dissected about 5 or 6 cm of the SMA. The patient was systemically heparinized. Proximal and distal control of the SMA was obtained with profunda clamps and a longitudinal arteriotomy was made with an 11 blade and extended with Perry scissors. The SMA embolus was then extracted using Sonia embolectomy catheters. Good inflow was restored. Modest backbleeding was restored and side branches were similarly embolectomized. A bovine pericardial patch was brought up on the field and sewed on to the SMA with a running 6-0 Prolene suture. At the completion, it was flushed and the clamps were released and there was nice pulse distal to the patch. The bowel; however, remained somewhat marginal. Dr. Dejesus with general surgery was then consulted and performed an exploratory laparotomy and application of ABThera vacuum dressing. The patient was then transported to the ICU in very critical condition. I was present and scrubbed for the entire procedure. At the conclusion of the case, the sponge and laparotomy counts were correct. Jan Sommer MD RJKathleen/DWIGHT , 01:03 AM , 06:56 AM
--- NOTE | 2017-06-29 06:58 | HHI.CCPN ---
Subjective Remarks/Hospital Course Hospital Course: 61-year-old female presents to the emergency department for evaluation of generalized abdominal pain. Patient was seen last night for the same. She states the pain has not improved. She states she has not had pain like this before. Current pain is 10/10, sharp throughout the abdomen. She reports swelling, but no fevers. She denies any chest pain. She denies any vomiting or diarrhea. Patient reports history of appendectomy, but no other abdominal surgeries. Patient was seen last night had labs, CT, chest x-ray completed. She was discharged with no emergent abnormality was found. Patient denies exacerbating or alleviating factors. 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 The patient was emergently taken to operating room for thrombectomy by a vascular surgeon. subjective: 06/29: remains intubated, sedated, critically ill, on vasopressors. overnight taken to OR for ex-lap and SMA embolectomy. at the conclusion of the case, bowel continued to appear ischemic. this AM, on vasopressin and phenylephrine. CVP is 1. uop has been adequate but marginal. lactate downtrending. LFTs slightly uptrended, unclear if early shock liver or ischemia from clot. Objective Vital Signs Date Time Temp Pulse Resp B/P (MAP) Pulse Ox O2 Delivery O2 Flow Rate FiO2 06/29/17 04:04 100 35 06/29/17 04:00 98.5 99 20 109/79 (89) 06/28/17 22:12 Nasal Cannula 2.00 Intake and Output 06/29/17 06/29/17 06/30/17 08:00 16:00 00:00 Intake Total 2210 ml Output Total 1575 ml Balance 635 ml Result Diagram: 06/29/17 0510 06/29/17 0145 Other Results Laboratory Tests Test 06/29/17 01:57 Blood Gas Puncture Site ART LINE Blood Gas Patient Temperature 98.6 Blood Gas HCO3 22 mmol/L (22-26) Blood Gas Base Excess -1.9 mmol/L (-2-2) Blood Gas Oxygen Saturation 97 % (90-100) Arterial Blood pH 7.43 (7.380-7.420) Arterial Blood Partial Pressure CO2 33 mmHg (38-42) Arterial Blood Partial Pressure O2 203 mmHg (61-120) Arterial Blood Oxygen Content 20.3 Vol % (12.0-20.0) Arterial Blood Carboxyhemoglobin 1.5 % (0-4) Arterial Blood Methemoglobin 1.0 % (0-2) Blood Gas Hemoglobin 14.6 G/DL (12.0-16.0) Oxygen Delivery Device VENTILATOR Blood Gas Ventilator Setting PRVC/AC Blood Gas Inspired Oxygen 50 % Imaging Last 24 hours Impressions Chest X-Ray 06/28/17 0000 Signed Impressions: Service Date/Time: Wednesday, June 28, 2017 19:20 - CONCLUSION: /Improvement in aeration Justo Sigala MD Abdomen/Pelvis CT 06/28/17 0000 Signed Impressions: Service Date/Time: Wednesday, June 28, 2017 20:18 - CONCLUSION: 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 HEENT: nc. at. perrl. mucous membranes moist. NECK: no jvd. trachea midline. CVL in place, site clean dry intact. CHEST: PRVC, 35% fio2. full mechanical support. PEEP 5. spo2 99% CV: normal rate, regular rhythm. sinus. frequent PACs. CVP 1. significant respiratory variation in pulse pressure. patient responded to straight leg raise while I was at bedside. Abd: wound vac in place. ~500cc sanguinous output from wound vac. soft, nondistended. no guarding. EXTR: distal pulses 2+. no peripheral edema. NEURO: RASS -2. intubated, sedated. withdraws to pain. per report, follows commands for nursing, but for me only withdraws, localizes, purposeful. A/P Assessment and Plan Assessment: 61yF POD 1 s/p ex-lap and SMA embolectomy for SMA occlusion with persistence of her Bowel Ischemia. Remains very critically ill. will transition from phenylephrine and vasopressin to norepinephrine as vasopressin has significant mesenteric vasoconstrictive properties and phenylephrine may decrease overall cardiac output. Could likely benefit from an inodilator like dobutamine if ischemia is a persistent concern. Clinically continues to appear intra-vascularly dry and with 500cc output from wound vac, may need additional resuscitation. will start with 500cc 5% albumin. Transition NS ivf to LR as she will likely need significant resuscitation and we will attempt to minimize chloride load. May need ongoing blood resuscitation as well to maintain o2 carrying capacity to her bowel, but currently does not meet transfusion triggers. Plan by Systems: Neuro: Acute metabolic Encephalopathy - RASS goal -2 - propofol, fentanyl for goal RASS - no sedation vacation with open abdomen and while critically ill. Resp: Acute hypoxic and hypercarbic respiratory failure COPD - no weaning of mechanical ventilation until shock improves - wean fio2 for goal spo2 > 90% - vent bundle, hob elevated, nebs - spiriva. CV: Septic Shock Acute intravascular volume depletion - d/c vasopressin - d/c phenylephrine - start norepinephrine for goal map > 65 mmHg - 500cc 5% albumin iv x 1. - d/c ns mivf - add LR mivf @ 125 cc/hr - q1h uop - continue to trend CVP - may need pulse contour analysis if no improvements Renal: - continue rose - q1h uop FEN/GI: Acute SMA thrombosis/occlusion Acute mesenteric ischemia s/p exploratory laparotomy with SMA embolectomy 06/28 Lactic Acidosis Acute intravascular volume depletion Acute protein calorie malnutrition- moderate - NPO while in shock with bowel ischemia - trend lactates - LR @ 125 cc/hr - maintain adequate perfusion pressure - continue heparin drip - give 24-48h to see how shock progresses. would have low threshold for TPN if bowel ischemia not improving quickly. - anticipate prolonged ileus. - NGT to suction. Heme/ID: Mesenteric thrombus Intra-abdominal sepsis - continue zosyn. would plan on 4 days of abx per STOP-IT criteria unless clinical course dictates otherwise. - f/u culture data - continue heparin drip - will likely need PEDRO given new acute thrombus, will hold off right now given critical illness. if needs echo or PEDRO for other indication, will eval for thrombus. Endo: Hyperglycemia of Critical Illness - SSI Prophylaxis: GI: - pepcid iv DVT: - SCDs - heparin drip Lines: - 06/28: TLC - 06/28: art line - Rose must keep all lines today. critically ill. Dispo: remain in ICU. very critically ill. high risk for decompensation. Critical care time: 80 minutes, exclusive of separately billable procedures. Jose Antonio Rodriguez MD June 29, 2017 06:58
[2017-06-29 07:47] LABS: LACTIC ACID SEPSIS PROTOCOL 3.6 mmol/L (0.4-2.0)
[2017-06-29 08:19] LABS: BANDS 29 % (0-6); LYMPHOCYTES 11 % (9-44); METAMYELOCYTES 7 % (0-1); MONOCYTES 3 % (0-8); MYELOCYTES 1 % (0-0); NEUTROPHIL # MANUAL DIFF 11.3 TH/MM3 (1.8-7.7); POLYS (SEG NEUTROPHILS) 49 % (16-70); TOXIC VACUOLATION PRESENT (NONE SEEN)
[2017-06-29] MEDS: ASPIRIN EC 81 MG TABEC PO SCH (09:00)
[2017-06-29] MEDS: TIOTROPIUM BROMIDE 18 MCG INH INH SCH (09:00)
[2017-06-29] MEDS: DOCUSATE SODIUM 50 MG/SENNA 8.6 MG TAB PO SCH ×2 (09:05→19:40)
[2017-06-29] MEDS: FAMOTIDINE 20 MG/2 ML VIAL IV PUSH SCH ×2 (09:05→19:40)
[2017-06-29] MEDS: ARTIFICIAL TEARS OPTH SOLN 15 ML BTL EACH EYE SCH ×3 (09:06→18:00)
[2017-06-29] MEDS: SODIUM CHLORIDE 0.9% FLUSH 10 ML FLUSH IV FLUSH SCH ×2 (09:06→19:41)
[2017-06-29] MEDS: CHLORHEXIDINE 0.12% (ORAL KIT) 15 ML CUP MT SCH ×2 (09:06→19:41)
--- NOTE | 2017-06-29 10:08 | HHI.PR ---
cc: Chalino Dejesus MD Subjective Subjective Notes DAILY PROGRESS NOTE FOR SURGICAL ATTENDING, DR. CHALINO DEJESUS Intubated/Sedated DAYAN Tobar at bedside Objective Vitals/I&O Vital Signs Date Time Temp Pulse Resp B/P (MAP) Pulse Ox O2 Delivery O2 Flow Rate FiO2 06/29/17 07:45 100 35 06/29/17 04:00 98.5 99 20 109/79 (89) 06/28/17 22:12 Nasal Cannula 2.00 Labs Laboratory Tests Test 06/28/17 18:00 06/28/17 19:05 06/28/17 19:35 06/28/17 21:00 White Blood Count 20.0 Red Blood Count 6.04 Hemoglobin 16.6 Hematocrit 51.1 Mean Corpuscular Volume 84.6 Mean Corpuscular Hemoglobin 27.4 Mean Corpuscular Hemoglobin Concent 32.4 Red Cell Distribution Width 15.0 Platelet Count 259 Mean Platelet Volume 9.5 Neutrophils (%) (Auto) 89.7 Lymphocytes (%) (Auto) 3.3 Monocytes (%) (Auto) 6.9 Eosinophils (%) (Auto) 0.0 Basophils (%) (Auto) 0.1 Neutrophils # (Auto) 18.0 Lymphocytes # (Auto) 0.7 Monocytes # (Auto) 1.4 Eosinophils # (Auto) 0.0 Basophils # (Auto) 0.0 CBC Comment DIFF FINAL Differential Comment Blood Urea Nitrogen 12 Creatinine 0.80 Random Glucose 99 Total Protein 6.0 Albumin 2.4 Calcium Level 6.8 Alkaline Phosphatase 88 Aspartate Amino Transf (AST/SGOT) 67 Alanine Aminotransferase (ALT/SGPT) 27 Total Bilirubin 0.8 Sodium Level 144 Potassium Level 3.5 Chloride Level 114 Carbon Dioxide Level 16.8 Anion Gap 13 Estimat Glomerular Filtration Rate 89 Protein Corrected Calcium 7.4 Lipase 64 Prothrombin Time 12.7 Prothromb Time International Ratio 1.3 Activated Partial Thromboplast Time 21.9 Urine Color YELLOW Urine Turbidity HAZY Urine pH 5.0 Urine Specific [place] 1.022 Urine Protein 30 Urine Glucose (UA) NEG Urine Ketones NEG Urine Occult Blood TRACE Urine Nitrite NEG Urine Bilirubin NEG Urine Urobilinogen LESS THAN 2.0 Urine Leukocyte Esterase NEG Urine RBC LESS THAN 1 Urine WBC 1 Urine Squamous Epithelial Cells 4 Urine Bacteria OCC Urine Hyaline Casts 3 Urine Mucus FEW Microscopic Urinalysis Comment CULT NOT INDICATED Lactic Acid Level 4.2 Test 06/29/17 01:30 06/29/17 01:45 06/29/17 01:57 06/29/17 05:10 Nasal Screen MRSA (PCR) MRSA NOT DETECTED White Blood Count 13.1 13.1 Red Blood Count 5.18 5.24 Hemoglobin 14.1 14.2 Hematocrit 42.6 43.1 Mean Corpuscular Volume 82.3 82.2 Mean Corpuscular Hemoglobin 27.2 27.2 Mean Corpuscular Hemoglobin Concent 33.0 33.0 Red Cell Distribution Width 14.2 14.3 Platelet Count 234 236 Mean Platelet Volume 8.9 9.4 Prothrombin Time 14.4 Prothromb Time International Ratio 1.4 Activated Partial Thromboplast Time 103.5 46.3 Blood Urea Nitrogen 17 Creatinine 0.97 Random Glucose 119 Total Protein 5.8 Albumin 2.3 Calcium Level 7.1 Phosphorus Level 3.2 Magnesium Level 2.2 Alkaline Phosphatase 83 Aspartate Amino Transf (AST/SGOT) 109 Alanine Aminotransferase (ALT/SGPT) 28 Total Bilirubin 1.2 Sodium Level 142 Potassium Level 3.6 Chloride Level 105 Carbon Dioxide Level 25.2 Anion Gap 12 Estimat Glomerular Filtration Rate 71 Lactic Acid Level 2.8 Protein Corrected Calcium 7.8 Blood Gas Puncture Site ART LINE Blood Gas Patient Temperature 98.6 Blood Gas HCO3 22 Blood Gas Base Excess -1.9 Blood Gas Oxygen Saturation 97 Arterial Blood pH 7.43 Arterial Blood Partial Pressure CO2 33 Arterial Blood Partial Pressure O2 203 Arterial Blood Oxygen Content 20.3 Arterial Blood Carboxyhemoglobin 1.5 Arterial Blood Methemoglobin 1.0 Blood Gas Hemoglobin 14.6 Oxygen Delivery Device VENTILATOR Blood Gas Ventilator Setting PRVC/AC Blood Gas Inspired Oxygen 50 Neutrophils (%) (Auto) 82.9 Lymphocytes (%) (Auto) 7.0 Monocytes (%) (Auto) 9.9 Eosinophils (%) (Auto) 0.0 Basophils (%) (Auto) 0.2 Neutrophils # (Auto) 10.8 Lymphocytes # (Auto) 0.9 Monocytes # (Auto) 1.3 Eosinophils # (Auto) 0.0 Basophils # (Auto) 0.0 CBC Comment AUTO DIFF Differential Total Cells Counted 100 Neutrophils % (Manual) 49 Band Neutrophils % 29 Lymphocytes % 11 Monocytes % 3 Neutrophils # (Manual) 11.3 Metamyelocytes 7 Myelocytes 1 Differential Comment FINAL DIFF MANUAL Toxic Vacuolation PRESENT Platelet Estimate NORMAL Platelet Morphology Comment NORMAL Test 06/29/17 07:15 Lactic Acid Level 3.6 Date/Time Source Procedure Growth Status 06/28/17 21:05 Blood Peripheral Aerobic Blood Culture Pending Received 06/28/17 21:05 Blood Peripheral Anaerobic Blood Culture Pending Received Radiology Last 72 hours Impressions Chest X-Ray 06/28/17 0000 Signed Impressions: Service Date/Time: Wednesday, June 28, 2017 19:20 - CONCLUSION: /Improvement in aeration Justo Sigala MD Abdomen/Pelvis CT 06/28/17 0000 Signed Impressions: Service Date/Time: Wednesday, June 28, 2017 20:18 - CONCLUSION: 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 Sommer -Will plan for return to OR tomorrow afternoon -Obtain consents -NPO -Requiring pressor support -UOP marginal -Vent per CCM -Palliative Care has been consulted Attending Statement NOTE FOR SURGICAL ATTENDING, DR. CHALINO DEJESUS Patient appears slightly more stable VAC in place Urine output noted Discussed with Dr. Wallace critical care Plan Second Look tomorrow around noon I agree with above assessment and plan. The exam, history, and the medical decision-making described in the above note were completed with the assistance of the mid-level provider. I reviewed and agree with the findings presented. I attest that I had a [id number] encounter with the patient on the same day, and personally performed and documented my assessment and findings in the medical record. The following services were provided during this hospital visit: Chart data review, vital sign assessments/reviewing monitor data Review of consultations notes if present. Medication orders/review and/or management Ordering and/or reviewing lab tests Ordering and/or interpreting/reviewing x-rays and/or diagnostic studies Care of the patient and discussion of the patient with the care team Documentation time To help prompt me to consider important information that might be impacting today's encounter and assessment, Information from prior notes written by myself or my colleagues may have been "brought forward/copy and pasted" into today's note. Aria Bell/First Bernard STANLEY June 29, 2017 10:08 Chalino Dejesus MD June 29, 2017 19:54
--- NOTE | 2017-06-29 12:11 | PD.CONS ---
Consult Service Palliative Care Consult Requested By Dr. Sommer . Primary Care Physician Justo Pereyra MD Reason for Consultation a. To assist with evaluation and management of symptoms including: Pain, dyspnea b. To assist medical decision maker(s) with: better understanding of current medical conditions; weighing benefits/burdens of medical treatment options; making medical treatment decisions. (Shahnaz Romero) HPI History of Present Illness This is a 61-year-old -[place] female who presented to the emergency room 06/28 for a complaint of worsening abdominal pain, not improved from the previous night 11/24 severity, sharp, throughout the abdomen with swelling, worsening her chronic shortness of breath. She had been seen in the emergency room 06/27 for a similar complaint in CT of the abdomen and pelvis showed no acute pathology. 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 The inferior mesenteric artery was noted to be patent. Interval development of moderate dilation of the stomach and small bowel with air-fluid levels were present, colon was decompressed. Vascular surgery was consulted emergently and she was transferred to the OR. As she was obtunded at the time and no family was present or available, this was considered a lifesaving procedure. General surgery was consulted for intraoperative assistance and she underwent exploratory laparotomy with lysis of adhesions and SMA embolectomy with patch angioplasty using bovine pericardium by Dr. Sommer and exploratory laparotomy with application of VAC device by Dr. Dejesus. Findings in both operations post thrombectomy showed good perfusion to the stomach, duodenum and liver, normal appearing gallbladder, however about 10 cm distal to the ligament of Treitz the bowel was dusky with montana ischemia all the way past the ileocecal valve and a portion of the cecum with normal-appearing ascending and transverse colon. Given the patient's recent thrombectomy it was felt that her best chance of recovery was to apply the wound VAC to see how much the small intestine would reperfuse adequately prior to doing a follow-up exploratory lap to determine the need for any further resection. It was opined that she would not survive with a total small bowel resection, and while it was felt that she still had a high percentage of mortality from this ischemic event, allowing a chance for reperfusion the bowel was her best chance at survival. Critical care medicine was consulted for postoperative management. They transitioned her from phenylephrine and vasopressin to norepinephrine due to the mesenteric vasoconstrictive properties of vasopressin and the potential decrease in overall cardiac output from the phenylephrine. She was given volume resuscitation with 500 cc of 5% albumin and lactated Ringer's solution to minimize the chlorine load. She is seen in the intensive surgical care unit, intubated, lightly sedated on 20 mcg/kg/min propofol, arousable, following commands. She is seen to grimace, withdraw to uncomfortable stimuli with some intermittent head movement back and forth. Her blood pressure is borderline despite vasopressor support and becomes more compromised with the increase in sedation. Clinical course: * Laboratory: Presenting laboratory studies showed WBC 20, hemoglobin 16.6, hematocrit 51.1, platelets 259. /15 labs showed WBC 13.1, hemoglobin 14.2, hematocrit 43.1, platelets 236. Presenting chemistries showed sodium 144, potassium 3.5, BUN 12, creatinine 0.80, calcium 6.8, protein corrected calcium 7.4, AST 67, ALT 27, alkaline phosphatase 88, total protein 6.0, albumin 2.4 and /15 labs show sodium 142, potassium 3.6, BUN 17, creatinine 0.97, lactic acid trending downward from 4.2-3.6, total bilirubin 1.2, AST 109, ALT 28, alkaline phosphatase 83, total protein 5.8, albumin 2.3. ABG shows pH 7.43, PCO2 33, PaO2 203 bicarbonate 22, base excess -1.9 on PRVC/AC, FiO2 50%. Urinalysis is negative. * Radiology: Abdomen x-ray on admission was negative for an acute process. CT of the abdomen and pelvis showed SMA occlusion with likely bowel infarction 4-5 cm beyond its origin with an eccentric thrombus leading up to the level of total occlusion, with an inferior mesenteric artery found to be patent. Colon was decompressed and there had been interval development of moderate dilation of the stomach and small bowel with air-fluid levels present. . Function/Cognitive Trajectory She was independently functioning up until her admission. This is an acute event. . (Shahnaz Romero) Review of Systems ROS Limitations: Intubated (Patient is nonverbal and unable to provide their own ROS. 10 part ROS taken as best as possible from medical record and available family.) Constitutional: COMPLAINS OF: Pain, DENIES: Diaphoretic episodes, Fatigue, Fever, Weight gain, Weight loss, Chills, Dizziness, Change in appetite, Night Sweats, Generalized weakness, Sleep problems Endocrine: DENIES: Abnorml menstrual pattern, Heat/cold intolerance, Polydipsia , Polyuria, Polyphagia Eyes: DENIES: Blurred vision, Diplopia, Eye inflammation, Eye pain, Vision loss , Photosensitivity, Double Vision, Blind spots Ears, nose, mouth, throat: DENIES: Tinnitus, Hearing loss, Vertigo, Nasal discharge, Oral lesions, Throat pain, Hoarseness, Ear Pain, Running Nose, Epistaxis, Sinus Pain, Toothache, Odynophagia Respiratory: COMPLAINS OF: Shortness of breath, DENIES: Apneas, Cough, Snoring , Wheezing, Hemoptysis, Sputum production Cardiovascular: DENIES: Chest pain, Palpitations, Syncope, Dyspnea on Exertion , PND, Lower Extremity Edema, Orthopnea, Claudication Gastrointestinal: COMPLAINS OF: Abdominal pain, DENIES: Black stools, Bloody stools, Constipation, Diarrhea, Nausea, Vomiting, Difficulty Swallowing, Anorexia, Dyspepsia or heartburn, Excessive gas, Bloating, Vomiting blood Genitourinary: DENIES: Abnormal vaginal bleeding, Dysmenorrhea, Dyspareunia, Sexual dysfunction, Urinary frequency, Urinary incontinence, Urgency, Hematuria , Dysuria, Nocturia, Vaginal discharge, Hesitancy, Dribbling, Decreased stream Musculoskeletal: DENIES: Joint pain, Muscle aches, Stiffness, Joint Swelling, Back pain, Neck pain, Decreased range of motion Integumentary: DENIES: Abnormal pigmentation, Pruritus, Rash, Nail changes, Breast masses, Breast skin changes, Nipple discharge, Nodules, Tumors, Excessive dryness, Non-healing sores Hematologic/Lymphatics: DENIES: Bruising, Lymphadenopathy, Prolonged bleed w/ proced, History of transfusions Immunologic/Allergic: DENIES: Eczema, Urticaria Neurologic: DENIES: Abnormal gait, Headache, Localized weakness, Paresthesias, Seizures, Speech Problems, Tremor, Poor Balance, Change in smell or taste Psychiatric: DENIES: Anxiety, Confusion, Mood changes, Depression, Hallucinations, Agitation, Suicidal Ideation, Homicidal Ideation, Delusions, Anhedonia (Shanhaz Romero) Past Family Social History Coded Allergies: paclitaxel (Unverified Adverse Reaction, Severe, Anaphylaxis, 06/28/17) Past Medical History Chronic systolic heart failure Nonischemic cardiomyopathy COPD Hypertension 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 Blackwell Pyelonephritis Asthma . Past Surgical History Appendectomy Total abdominal hysterectomy secondary to fibroids. Left lumpectomy Left lymph node surgery . Reported Medications Reported Meds & Active Scripts Active Phenergan (Promethazine HCl) 25 Mg Tablet 25 Mg PO Q8HR PRN Macrobid (Nitrofurantoin Monoh/Nitrofur Macro) 100 Mg Cap 100 Mg PO BID 7 Days Diflucan (Fluconazole) 150 Mg Tab 150 Mg PO ONCE Reported Ventolin Hfa 18 GM Inh (Albuterol Sulfate) 90 Mcg/Act Aer 2 Puff INH Q4H PRN Spiriva Handihaler (Tiotropium Inh) 18 Mcg Cap 18 Mcg INH DAILY 1 capsule = 18 mcg Lisinopril 10 Mg Tab 10 Mg PO DAILY Metoprolol Tartrate 25 Mg Tab 25 Mg PO BID Lasix (Furosemide) 40 Mg Tab 40 Mg PO DAILY Aspir-81 (Aspirin) 81 Mg Tabdr 81 Mg PO DAILY . . Current Medications Medications (Trade) Dose Ordered Sig/Jennifer Route Start Time Stop Time Status Last Admin (Heparin Inj) 5,000 units UNSCH PRN IV PUSH 06/29/17 03:30 (Heparin Inj) 2,500 units UNSCH PRN IV PUSH 06/29/17 03:30 (Ecotrin Ec) 81 mg DAILY PO 06/29/17 09:00 (Spiriva Inh) 18 mcg DAILY INH 06/29/17 09:00 (NS Flush) 2 ml UNSCH PRN IV FLUSH 06/28/17 22:30 (NS Flush) 2 ml BID IV FLUSH 06/29/17 09:00 06/29/17 09:06 (Tylenol) 650 mg Q6H PRN PO 06/28/17 22:30 (Morphine Inj) 2 mg Q2H PRN IV PUSH 06/28/17 22:30 06/29/17 02:15 (Pepcid Inj) 20 mg Q12HR IV PUSH 06/29/17 09:00 06/29/17 09:05 (Versed Inj) 2 mg Q1H PRN IV PUSH 06/28/17 22:30 06/29/17 02:15 (Tears Naturale Opth Soln) 1 drop TID EACH EYE 06/29/17 09:00 06/29/17 09:06 (Zofran Inj) 4 mg Q6H PRN IV PUSH 06/28/17 22:30 (Duoneb Neb) 1 ampule Q6HR NEB INH 06/29/17 04:00 06/29/17 07:45 (Duoneb Neb) 1 ampule Q2HR NEB PRN INH 06/28/17 22:30 ([facility] [place] [facility]) 1 Q361D XX 06/28/17 22:30 (Chlorhexidine 2% Cloth) 3 pack Taper DAILY@04 TOP 06/29/17 04:00 06/25/18 03:59 (Chlorhexidine 2% Cloth) 3 pack UNSCH PRN TOP 06/28/17 22:30 (Maggie-Colace) 1 tab BID PO 06/29/17 09:00 06/29/17 09:05 (Milk Of Magnesia Liq) 30 ml Q12H PRN PO 06/28/17 22:30 (Senokot) 17.2 mg Q12H PRN PO 06/28/17 22:30 (Dulcolax Supp) 10 mg DAILY PRN RECTAL 06/28/17 22:30 (Lactulose Liq) 30 ml DAILY PRN PO 06/28/17 22:30 Heparin Sodium/ Dextrose 250 ml @ 12 mls/hr TITRATE PRN IV 06/29/17 01:00 06/29/17 04:00 (Brethine Inj) 1 mg UNSCH PRN SQ 06/29/17 01:30 Piperacillin Sod/ Tazobactam Sod 100 ml @ 200 mls/hr Q6H IV 06/29/17 02:00 06/29/17 09:05 (Peridex 0.12% Liq) 15 ml BID@08,20 MT 06/29/17 08:00 06/29/17 09:06 Propofol 100 ml @ 2.04 mls/hr TITRATE PRN IV 06/29/17 02:00 06/29/17 09:07 Norepinephrine Bitartrate 250 ml @ 7.5 mls/hr TITRATE PRN IV 06/29/17 06:45 (Brethine Inj) 1 mg UNSCH PRN SQ 06/29/17 06:45 Lactated Ringer's 1,000 ml @ 125 mls/hr Q8H IV 06/29/17 06:45 06/29/17 06:45 Family History Dad at age 50 with myocardial infarction. Mother had borderline diabetes, hypertension and asthma. One sibling with end-stage renal disease. . Substance Use Tobacco: Reportedly smoked a pack a day, from age 19 to age 51. Alcohol: Reported social use of alcohol, but old chart records 1 quart of alcohol per day. Prescription med abuse: No known history. Illicits: Positive for marijuana and cocaine in the past. . Psychosocial History Born in [place], she has 3 living children, per my discussion with her son Zia Rao. He also has a brother Jose Antonio Edward and a sister Moises Rao. . Spiritual/Cultural Factors Ground Support Agent available. . (Shahnaz Romero) Living Will: Never completed Health Care Surrogate: Never completed Durable Power of Atmospheric Chemist: Never completed Date completed: No records available. . Health Care Surrogate(s): No records available. . Documented care wishes: No records available. . Today's verbally stated goals: Patient is intubated, Sedated and cannot speak. . Family/friends goals: Per my discussion with her son Zia, goals remain aggressive at this time. . Ethical and Legal Issues None noted. . (Shahnaz Romero) Physical Exam Vital Signs Date Time Temp Pulse Resp B/P (MAP) Pulse Ox O2 Delivery O2 Flow Rate FiO2 06/29/17 10:00 114 06/29/17 08:00 100.0 111 19 110/70 (83) 100 06/29/17 08:00 111 06/29/17 08:00 50 06/29/17 07:45 100 35 06/29/17 04:04 100 35 06/29/17 04:00 98.5 99 20 109/79 (89) 100 06/29/17 04:00 50 06/29/17 02:45 111 97/67 06/29/17 02:20 19 06/29/17 01:30 50 06/29/17 01:30 98.3 98 16 125/82 (96) 98 Automatic Cuff 06/29/17 01:30 99 06/29/17 01:25 99 50 06/28/17 22:26 06/28/17 22:12 98.3 110 20 155/85 (108) 98 Nasal Cannula 2.00 06/28/17 21:10 110 20 139/83 (101) 92 Room Air 06/28/17 18:22 112 20 159/86 (110) 92 Room Air 06/28/17 17:03 97.8 118 18 141/95 (110) 96 06/29/17 06/30/17 19:00 07:00 Intake Total 800 ml Balance 800 ml Intake IV Total 800 ml Exam CONSTITUTIONAL/GENERAL: This is an adequately nourished patient, intubated, sedated, in no apparent distress. TUBES/LINES/DRAINS: Right IJ central line,, OG tube, Monreal, right radial line, left wrist PIV. SKIN: No jaundice, rashes, or lesions. No wounds seen anteriorly. Skin temperature appropriate. Not diaphoretic. HEAD: Atraumatic. Normocephalic. EYES: Pupils equal and round and reactive. Opens eyes to voice. No scleral icterus. No injection or drainage. Fundi not examined. ENT: Hearing grossly normal. Nose without bleeding or purulent drainage. Throat without visible erythema, exudates, masses, or lesions. NECK: Trachea midline. Supple, nontender. No palpable thyroid enlargement or nodularity. CARDIOVASCULAR: S1, S2, tachycardic rate, regular rhythm, 1/6 systolic ejection murmur at the right sternal border. RESPIRATORY/CHEST: Symmetric, unlabored respirations. Clear to auscultation. Breath sounds equal bilaterally. No wheezes, rales, or rhonchi. GASTROINTESTINAL: Abdomen soft, tender, nondistended, wound VAC intact with abdominal binder. No auscultated bowel sounds. GENITOURINARY: Without palpable bladder distension. Monreal catheter in place. MUSCULOSKELETAL: Extremities without clubbing, cyanosis, or edema. No joint tenderness or effusion noted. No calf tenderness. No mottling or clubbing. LYMPHATICS: No palpable cervical or supraclavicular adenopathy. NEUROLOGICAL: Sedated, arousable, follows commands. Moves all extremities. PSYCHIATRIC: Some anxiety related to ventilator status. . (Shahnaz Romero) Diagnostic Tests Laboratory Laboratory Tests Test 06/28/17 18:00 06/28/17 19:05 06/28/17 19:35 06/28/17 21:00 White Blood Count 20.0 TH/MM3 (4.0-11.0) Red Blood Count 6.04 MIL/MM3 (4.00-5.30) Hemoglobin 16.6 GM/DL (11.6-15.3) Hematocrit 51.1 % (35.0-46.0) Mean Corpuscular Volume 84.6 FL (80.0-100.0) Mean Corpuscular Hemoglobin 27.4 PG (27.0-34.0) Mean Corpuscular Hemoglobin Concent 32.4 % (32.0-36.0) Red Cell Distribution Width 15.0 % (11.6-17.2) Platelet Count 259 TH/MM3 (150-450) Mean Platelet Volume 9.5 FL (7.0-11.0) Neutrophils (%) (Auto) 89.7 % (16.0-70.0) Lymphocytes (%) (Auto) 3.3 % (9.0-44.0) Monocytes (%) (Auto) 6.9 % (0.0-8.0) Eosinophils (%) (Auto) 0.0 % (0.0-4.0) Basophils (%) (Auto) 0.1 % (0.0-2.0) Neutrophils # (Auto) 18.0 TH/MM3 (1.8-7.7) Lymphocytes # (Auto) 0.7 TH/MM3 (1.0-4.8) Monocytes # (Auto) 1.4 TH/MM3 (0-0.9) Eosinophils # (Auto) 0.0 TH/MM3 (0-0.4) Basophils # (Auto) 0.0 TH/MM3 (0-0.2) CBC Comment DIFF FINAL Differential Comment Blood Urea Nitrogen 12 MG/DL (7-18) Creatinine 0.80 MG/DL (0.50-1.00) Random Glucose 99 MG/DL (74-106) Total Protein 6.0 GM/DL (6.4-8.2) Albumin 2.4 GM/DL (3.4-5.0) Calcium Level 6.8 MG/DL (8.5-10.1) Alkaline Phosphatase 88 U/L (45-117) Aspartate Amino Transf (AST/SGOT) 67 U/L (15-37) Alanine Aminotransferase (ALT/SGPT) 27 U/L (10-53) Total Bilirubin 0.8 MG/DL (0.2-1.0) Sodium Level 144 MEQ/L (136-145) Potassium Level 3.5 MEQ/L (3.5-5.1) Chloride Level 114 MEQ/L (98-107) Carbon Dioxide Level 16.8 MEQ/L (21.0-32.0) Anion Gap 13 MEQ/L (5-15) Estimat Glomerular Filtration Rate 89 ML/MIN (>89) Protein Corrected Calcium 7.4 MG/DL (8.5-10.1) Lipase 64 U/L (73-393) Prothrombin Time 12.7 SEC (9.8-11.6) Prothromb Time International Ratio 1.3 RATIO Activated Partial Thromboplast Time 21.9 SEC (24.3-30.1) Urine Color YELLOW (YELLW/STRAW) Urine Turbidity HAZY (CLEAR) Urine pH 5.0 (5.0-8.5) Urine Specific Chamberlain 1.022 (1.002-1.035) Urine Protein 30 mg/dL (NEG-TRACE) Urine Glucose (UA) NEG mg/dL (NEG) Urine Ketones NEG mg/dL (NEG) Urine Occult Blood TRACE (NEG) Urine Nitrite NEG (NEG) Urine Bilirubin NEG (NEG) Urine Urobilinogen LESS THAN 2.0 MG/DL (LESS Urine Leukocyte Esterase NEG (NEG) Urine RBC LESS THAN 1 /hpf (0-3) Urine WBC 1 /hpf (0-5) Urine Squamous Epithelial Cells 4 /hpf (0-5) Urine Bacteria OCC /hpf (NONE) Urine Hyaline Casts 3 /lpf (RARE) Urine Mucus FEW /lpf (OCC) Microscopic Urinalysis Comment CULT NOT INDICATED Lactic Acid Level 4.2 mmol/L (0.4-2.0) Test 06/29/17 01:30 06/29/17 01:45 06/29/17 01:57 06/29/17 05:10 Nasal Screen MRSA (PCR) MRSA NOT DETECTED (NOT White Blood Count 13.1 TH/MM3 (4.0-11.0) 13.1 TH/MM3 (4.0-11.0) Red Blood Count 5.18 MIL/MM3 (4.00-5.30) 5.24 MIL/MM3 (4.00-5.30) Hemoglobin 14.1 GM/DL (11.6-15.3) 14.2 GM/DL (11.6-15.3) Hematocrit 42.6 % (35.0-46.0) 43.1 % (35.0-46.0) Mean Corpuscular Volume 82.3 FL (80.0-100.0) 82.2 FL (80.0-100.0) Mean Corpuscular Hemoglobin 27.2 PG (27.0-34.0) 27.2 PG (27.0-34.0) Mean Corpuscular Hemoglobin Concent 33.0 % (32.0-36.0) 33.0 % (32.0-36.0) Red Cell Distribution Width 14.2 % (11.6-17.2) 14.3 % (11.6-17.2) Platelet Count 234 TH/MM3 (150-450) 236 TH/MM3 (150-450) Mean Platelet Volume 8.9 FL (7.0-11.0) 9.4 FL (7.0-11.0) Prothrombin Time 14.4 SEC (9.8-11.6) Prothromb Time International Ratio 1.4 RATIO Activated Partial Thromboplast Time 103.5 SEC (24.3-30.1) 46.3 SEC (24.3-30.1) Blood Urea Nitrogen 17 MG/DL (7-18) Creatinine 0.97 MG/DL (0.50-1.00) Random Glucose 119 MG/DL (74-106) Total Protein 5.8 GM/DL (6.4-8.2) Albumin 2.3 GM/DL (3.4-5.0) Calcium Level 7.1 MG/DL (8.5-10.1) Phosphorus Level 3.2 MG/DL (2.5-4.9) Magnesium Level 2.2 MG/DL (1.5-2.5) Alkaline Phosphatase 83 U/L (45-117) Aspartate Amino Transf (AST/SGOT) 109 U/L (15-37) Alanine Aminotransferase (ALT/SGPT) 28 U/L (10-53) Total Bilirubin 1.2 MG/DL (0.2-1.0) Sodium Level 142 MEQ/L (136-145) Potassium Level 3.6 MEQ/L (3.5-5.1) Chloride Level 105 MEQ/L (98-107) Carbon Dioxide Level 25.2 MEQ/L (21.0-32.0) Anion Gap 12 MEQ/L (5-15) Estimat Glomerular Filtration Rate 71 ML/MIN (>89) Lactic Acid Level 2.8 mmol/L (0.4-2.0) Protein Corrected Calcium 7.8 MG/DL (8.5-10.1) Blood Gas Puncture Site ART LINE Blood Gas Patient Temperature 98.6 Blood Gas HCO3 22 mmol/L (22-26) Blood Gas Base Excess -1.9 mmol/L (-2-2) Blood Gas Oxygen Saturation 97 % (90-100) Arterial Blood pH 7.43 (7.380-7.420) Arterial Blood Partial Pressure CO2 33 mmHg (38-42) Arterial Blood Partial Pressure O2 203 mmHg (61-120) Arterial Blood Oxygen Content 20.3 Vol % (12.0-20.0) Arterial Blood Carboxyhemoglobin 1.5 % (0-4) Arterial Blood Methemoglobin 1.0 % (0-2) Blood Gas Hemoglobin 14.6 G/DL (12.0-16.0) Oxygen Delivery Device VENTILATOR Blood Gas Ventilator Setting PRVC/AC Blood Gas Inspired Oxygen 50 % Neutrophils (%) (Auto) 82.9 % (16.0-70.0) Lymphocytes (%) (Auto) 7.0 % (9.0-44.0) Monocytes (%) (Auto) 9.9 % (0.0-8.0) Eosinophils (%) (Auto) 0.0 % (0.0-4.0) Basophils (%) (Auto) 0.2 % (0.0-2.0) Neutrophils # (Auto) 10.8 TH/MM3 (1.8-7.7) Lymphocytes # (Auto) 0.9 TH/MM3 (1.0-4.8) Monocytes # (Auto) 1.3 TH/MM3 (0-0.9) Eosinophils # (Auto) 0.0 TH/MM3 (0-0.4) Basophils # (Auto) 0.0 TH/MM3 (0-0.2) CBC Comment AUTO DIFF Differential Total Cells Counted 100 Neutrophils % (Manual) 49 % (16-70) Band Neutrophils % 29 % (0-6) Lymphocytes % 11 % (9-44) Monocytes % 3 % (0-8) Neutrophils # (Manual) 11.3 TH/MM3 (1.8-7.7) Metamyelocytes 7 % (0-1) Myelocytes 1 % (0-0) Differential Comment FINAL DIFF MANUAL Toxic Vacuolation PRESENT (NONE SEEN) Platelet Estimate NORMAL (NORMAL) Platelet Morphology Comment NORMAL (NORMAL) Test 06/29/17 07:15 Lactic Acid Level 3.6 mmol/L (0.4-2.0) (Shahnaz Romero) Result Diagram: 06/29/17 0510 06/29/17 0145 Microbiology Microbiology Date/Time Source Procedure Growth Status 06/28/17 21:05 Blood Peripheral Aerobic Blood Culture - Preliminary NO GROWTH IN 1 DAY Resulted 06/28/17 21:05 Blood Peripheral Anaerobic Blood Culture - Preliminary NO GROWTH IN 1 DAY Resulted 06/28/17 20:50 Blood Peripheral Aerobic Blood Culture - Preliminary NO GROWTH IN 1 DAY Resulted 06/28/17 20:50 Blood Peripheral Anaerobic Blood Culture - Preliminary NO GROWTH IN 1 DAY Resulted Imaging Last Impressions Chest X-Ray 06/28/17 0000 Signed Impressions: Service Date/Time: Wednesday, June 28, 2017 19:20 - CONCLUSION: /Improvement in aeration Justo Sigala MD Abdomen/Pelvis CT 06/28/17 0000 Signed Impressions: Service Date/Time: Wednesday, June 28, 2017 20:18 - CONCLUSION: SMA occlusion with likely bowel infarction and findings as described above Justo Sigala MD Abdomen X-Ray 06/28/17 0000 Signed Impressions: Service Date/Time: Wednesday, June 28, 2017 18:43 - CONCLUSION: Mild nonspecific gaseous distention of bowel Justo Sigala MD Procedures 06/29: Exploratory laparotomy with application of VAC device 06/29: Exploratory laparotomy with lysis of adhesions, SMA embolectomy with patch angioplasty using bovine pericardium. . (Shahnaz Romero) Patient/Family Conference Present at Family Conference: Spoke with patient's son, Zia via telephone and updated them as the patient condition and plans to go forth with a second exploratory laparotomy tomorrow to evaluate recovery of previously ischemic appearing bowel. Reviewed patient medical surgical family and psychosocial history. Reviewed palliative care purpose and focus as well as below listed items. He wished to contact his brother and sister and provide them update, but did not have their contact information available at this time. Zia states that his mother had told him she wanted him to be her decision maker but he does not know if the paperwork had been signed yet. He has been requested to bring whatever paperwork is available to the hospital for review. We reviewed the [place] statute hierarchy of decision-makers. As his mother was single, the law dictates that the majority of her adult children would be the decision makers. Contact information was provided and return call requested when that information was made available. . Issues Discussed: * Palliative care role, purpose, approach * Additional medical, psychosocial, and spiritual history * Patients general health, functional status, and cognitive changes in the months leading up to the current hospitalization * Patient/family understanding of the current medical problems * Patient/family understanding of prognosis * Patients goals of care as best understood from advance directives and/or conversations and/or values * Current medical treatment options and benefits/burdens of those options * Likely scenarios comparing ongoing aggressive care with a transition to comfort measures only * Questions answered to the best of my ability * Palliative care contact information provided (Shahnaz Romero) Assessment and Plan Disease Oriented Problem List: (1) Congestive heart failure (CHF) (2) COPD (chronic obstructive pulmonary disease) (3) Occlusion of superior mesenteric artery (4) Acute bowel infarction Symptom Scale: (1) Abdominal pain 0-10 Scale: Unable to quantify (Intubated, sedated.) (2) Dyspnea and respiratory abnormalities 0-10 Scale: Unable to quantify (Intubated, sedated.) Pertinent Non-Medical Issues Psychosocial:Born in [place], she has 3 living children, per my discussion with her son Zia Rao. He also has a brother Jose Antonio Edward and a sister Moises Rao. Spiritual: Ground Support Agent available. Legal: She reportedly has 3 children who would be her legal decision makers unless advanced directive paperwork can be located. Ethical issues impacting care: None noted. . Important Contacts Son: Zia Rao , Son: Jose Antonio Edward Daughter: Lacey Rao . Prognosis This is a 61-year-old -[place] female with acute superior mesenteric artery thrombosis, now status post embolectomy with findings of ischemic bowel throughout most of the small intestine during exploratory laparotomy. Once embolectomy was performed, it was felt to be the patient's best chance at survival to allow a short time for reperfusion and then reevaluate to see if there had been any bowel recovery. She is at high risk for complications and per surgical notes has a high percentage of mortality from the ischemic event and, he further opines that she would not survive with a total small bowel resection. Her prognosis appears poor and she is at elevated risk of continued complications and decline. . Code Status: Full Code Plan PLAN: Legal decision maker:, Not capacitated for decision-making purposes. Pending receipt of advanced directive paperwork, per [place] statutes the legal decision makers would be the majority of her adult children, Zia, Nicola and Lacey. Patient is currently intubated and sedated Goals: Aggressive at this time CODE STATUS: FULL CODE SYMPTOMS: * Pain: She had debilitating, exquisite pain presurgery and now post embolectomy remains with some discomfort. She is receiving morphine 2 mg every 2 hours as needed for pain 6-10, and has received 1 dose thus far, and she has Versed available 2 mg every hour as needed for sedation. She has received 1 dose today. * Dyspnea: Multifactorial to include pain, history of COPD and history of chronic systolic heart failure with last ejection fraction in 2014 noted at 15- 20%. She is currently receiving ventilator support at 50% FiO2 and is tolerating with minimal tachypnea. In addition to the as needed morphine, she also has DuoNeb both scheduled and PRN. No further recommendations at this time. 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 Thrombectomy was completed emergently with both vascular and general surgery in attendance. It was their combined opinion that her best chance of survival was to provide 48 hours post congregational of circulation to evaluate recovery of the bowel. Plan for reexploration 06/30 however she is felt to have a poor prognosis by the attending surgeons. She is at high risk for further complication and decline. Palliative care will continue to follow the patient during hospital course as condition evolves, to assist patient/decision-maker with understanding of their medical conditions, weighing benefits/burdens of treatment options, for clarification of goals of treatment. Additionally will assist with any symptoms of palliative concern. . (Shahnaz Romero) Important Contacts Daughter: Elisa Valentin Shantanu) [phone] or [phone] (Elisa's ) Son: Jose Antonio Edward [phone] . (Shayy Wallace, TELEPHONE REPAIRER) Thank you for the opportunity to participate in the care of Ms. Rao. (Shahnaz Romero) Attestation To help prompt me to consider important information that might be impacting today's encounter and assessment, information from prior notes written by myself or my colleagues may have been "brought forward" into today's note. My signature on this note, however, is an attestation that I personally performed the exam, history, and/or decision-making noted today, and, unless otherwise indicated, the interactions with patient, family, and staff as well as the review of records all occurred today. I also attest that the listed assessment and stated plan reflect my best clinical judgment today based on the combination of historical information, prior notes, and today's exam/ interactions. When time spent is documented, it refers only to time spent today by the signer, or if indicated, combined time spent today by collaborating physician/nurse practitioner. . (Shahnaz Romero) Shahnaz Romero June 29, 2017 12:11 Shayy Wallace, TELEPHONE REPAIRER June 29, 2017 16:11
[2017-06-29] MEDS ORDERED: MILRINONE INJ 20 MG in SODIUM CHLORIDE 0.9% INJ 80 ML IV SCH ×2 (13:49→15:00)
[2017-06-29] MEDS ORDERED: CALCIUM GLUCONATE INJ 3 GM in SODIUM CHLORIDE 0.9% INJ 100 ML IV ONE (16:00)
[2017-06-29 16:22] LABS: LACTIC ACID SEPSIS PROTOCOL 3.5 mmol/L (0.4-2.0)
[2017-06-29] MEDS ORDERED: ALBUMIN 5% INJ 250 ML IV ONE (17:15)
--- NOTE | 2017-06-29 17:34 | ECHRPT ---
Indication: CVA CONCLUSIONS Mildly dilated left ventricle. Mild concentric left ventricular hypertrophy. The left ventricular systolic function is severely reduced with an estimated ejection fraction less than 20%. No atrial level shunt is demonstrated by color flow Doppler interrogation. Higvv-[id number] mitral valve regurgitation. There is trace tricuspid valve regurgitation. The estimated pulmonary arterial pressure is 24.6 mmHg. The inferior vena cava was not well visualized. BP: 109 / 79 HR: Rhythm: Sinus MEASUREMENTS (Male / Female) Normal Values Technical Quality:Fair 2D ECHO LV Diastolic Diameter PLAX 5.3 cm 4.2 - 5.9 / 3.9 - 5.3 cm LV Systolic Diameter PLAX 4.9 cm IVS Diastolic Thickness 1.1 cm 0.6 - 1.0 / 0.6 - 0.9 cm LVPW Diastolic Thickness 1.1 cm 0.6 - 1.0 / 0.6 - 0.9 cm LV Relative Wall Thickness 0.4 RV Internal Dim ED PLAX 1.6 cm LVOT Diameter 2.0 cm Aortic Root Diameter 2.8 cm LA Systolic Diameter LX 3.0 cm 3.0 - 4.0 / 2.7 - 3.8 cm LA Volume Index 23.7 cm/m 16 - 28 cm/m M-MODE AV Cusp Separation MM 1.8 cm DOPPLER AV Peak Velocity 114.0 cm/s AV Peak Gradient 5.2 mmHg AV Mean Gradient 3.0 mmHg AV Velocity Time Integral 12.1 cm LVOT Peak Velocity 44.4 cm/s LVOT Peak Gradient 0.8 mmHg LVOT Velocity Time Integral 4.3 cm AV Area Cont Eq vti 1.1 cm AV Area Cont Eq pk 1.2 cm Mitral E Point Velocity 82.9 cm/s Mitral A Point Velocity 62.2 cm/s Mitral E to A Ratio 1.3 LV E' Lateral Velocity 1.8 cm/s Mitral E to LV E' Lateral Ratio 44.8 LV E' Septal Velocity 3.1 cm/s Mitral E to LV E' Septal Ratio 26.6 TR Peak Velocity 191.0 cm/s TR Peak Gradient 14.6 mmHg Right Atrial Pressure 10.0 mmHg Pulmonary Artery Systolic Pressu 24.6 mmHg Right Ventricular Systolic Press 24.6 mmHg PV Peak Velocity 85.7 cm/s PV Peak Gradient 2.9 mmHg FINDINGS LEFT VENTRICLE Mildly dilated left ventricle. Mild concentric left ventricular hypertrophy. The left ventricular systolic function is severely reduced with an estimated ejection fraction less than 20%. RIGHT VENTRICLE Normal right ventricular size and systolic function. LEFT ATRIUM The left atrial size is normal. RIGHT ATRIUM The right atrial size is normal. ATRIAL SEPTUM No atrial level shunt is demonstrated by color flow Doppler interrogation. AORTA The aortic root and proximal ascending aorta are normal in size on limited imaging. MITRAL VALVE Dahzq-hr-xoct mitral valve regurgitation. AORTIC VALVE Trileaflet aortic valve. No aortic valve stenosis or regurgitation. TRICUSPID VALVE There is trace tricuspid valve regurgitation. The estimated pulmonary arterial pressure is 24.6 mmHg. PULMONARY VALVE No pulmonary valve regurgitation or stenosis. VESSELS The inferior vena cava was not well visualized. PERICARDIUM No pericardial effusion. Jhonatan Vigil MD, FACC (Electronically Signed) Final Date:29 Jun 2017 17:32
[2017-06-30] VITALS (18 sets, daily range): BP systolic 101–117; BP diastolic 58–76; PULSE 119–158; RESP 20–22; TEMP 98.4–100.1; O2SAT 95–100
[2017-06-30] MEDS: NOREPINEPHRINE-DEXTROSE DRIP 250 ML IV PRN ×2 (00:18→21:40)
[2017-06-30] MEDS: PIPERACIL-TAZO 4.5 GM PREMIX 100 ML IV SCH ×4 (00:18→22:43)
[2017-06-30] MEDS: HEPARIN-D5W 25,000 U/250 ML 250 ML IV PRN (02:16)
[2017-06-30] MEDS: RESP: ALBUTEROL 2.5 MG/IPRATROPIUM 0.5 MG NEB (SCH) INH ×4 (03:55→19:31)
[2017-06-30] MEDS: CHLORHEXIDINE GLUCONATE 2 % 1 PACK (2 CLOTHS) TOP SCH (04:00)
[2017-06-30 04:52] LABS: HEMATOCRIT 39.3 % (35.0-46.0); HEMOGLOBIN 12.8 GM/DL (11.6-15.3); MEAN CELL VOLUME 82.2 FL (80.0-100.0); MEAN CORPUSCULAR HEMOGLOBIN 26.7 PG (27.0-34.0); MEAN CORPUSCULAR HGB CONC 32.5 % (32.0-36.0); MEAN PLATELET VOLUME 9.6 FL (7.0-11.0); PLATELET COUNT 179 TH/MM3 (150-450); RED BLOOD COUNT 4.78 MIL/MM3 (4.00-5.30); RED CELL DISTRIBUTION WIDTH 14.5 % (11.6-17.2); WHITE BLOOD COUNT 12.4 TH/MM3 (4.0-11.0)
[2017-06-30 05:06] LABS: INTERNATIONAL NORMALIZED RATIO 1.1 RATIO; PROTHROMBIN TIME - PATIENT 11.5 SEC (9.8-11.6)
[2017-06-30 05:17] LABS: ALBUMIN 2.1 GM/DL (3.4-5.0); ALKALINE PHOSPHATASE 71 U/L (45-117); ALT (GPT) 17 U/L (10-53); AST (GOT) 48 U/L (15-37); BICARBONATE 23.7 MEQ/L (21.0-32.0); BLOOD UREA NITROGEN 19 MG/DL (7-18); CALCIUM 8.2 MG/DL (8.5-10.1); CHLORIDE 104 MEQ/L (98-107); CREATININE 1.33 MG/DL (0.50-1.00); GLOMERULAR FILTRATION RATE 49 ML/MIN (>89); GLUCOSE,RANDOM 121 MG/DL (74-106); SODIUM (NA) 140 MEQ/L (136-145); TOTAL PROTEIN 5.3 GM/DL (6.4-8.2)
[2017-06-30] MEDS: LACTATED RINGER'S 1000 ML INJ 1,000 ML IV SCH ×3 (05:18→22:49)
[2017-06-30] MEDS: PROPOFOL 1000 MG/100 ML INJ 100 ML IV PRN ×4 (06:25→16:57)
[2017-06-30 06:36] LABS: MAGNESIUM 2.4 MG/DL (1.5-2.5)
--- NOTE | 2017-06-30 08:00 | PD.VS.PN ---
Subjective POD #: 1 Procedure(s): SMA embolectomy and patch Subjective/Hospital Course remains critically ill, on pressors. LA 2.8 making urine Objective Vitals/I&O Date Time Temp Pulse Resp B/P (MAP) Pulse Ox O2 Delivery O2 Flow Rate FiO2 06/30/17 06:00 126 06/30/17 05:05 100 35 06/30/17 04:00 35 06/30/17 04:00 119 06/30/17 04:00 99.0 119 20 101/58 (72) 100 06/30/17 02:47 100 35 06/30/17 02:00 124 06/30/17 00:18 123 100/64 06/30/17 00:00 122 06/30/17 00:00 35 06/30/17 00:00 100.1 122 21 102/62 (75) 100 06/29/17 23:39 100 35 06/29/17 22:00 128 06/29/17 20:00 99.5 128 21 122/74 (90) 100 06/29/17 20:00 35 06/29/17 20:00 128 06/29/17 19:40 100 35 06/29/17 18:00 126 06/29/17 16:00 100.4 136 24 92/58 (69) 100 06/29/17 16:00 50 06/29/17 16:00 136 06/29/17 15:11 100 35 06/29/17 14:39 121 101/68 06/29/17 14:00 120 06/29/17 12:00 117 06/29/17 12:00 100.2 117 21 100/69 (79) 100 06/29/17 12:00 50 06/29/17 11:32 100 35 06/29/17 10:00 114 06/29/17 08:00 100.0 111 19 110/70 (83) 100 06/29/17 08:00 111 06/29/17 08:00 50 06/30/17 06/30/17 06/30/17 07:00 15:00 23:00 Intake Total 1800 ml Output Total 750 ml Balance 1050 ml Exam: COHEN by report abdominal vac in place UOP marginal Laboratory Laboratory Tests Test 06/29/17 10:45 06/29/17 15:45 06/29/17 17:00 06/29/17 22:55 Activated Partial Thromboplast Time 39.7 47.8 58.4 Lactic Acid Level 3.5 3.5 2.8 Test 06/30/17 04:30 White Blood Count 12.4 Red Blood Count 4.78 Hemoglobin 12.8 Hematocrit 39.3 Mean Corpuscular Volume 82.2 Mean Corpuscular Hemoglobin 26.7 Mean Corpuscular Hemoglobin Concent 32.5 Red Cell Distribution Width 14.5 Platelet Count 179 Mean Platelet Volume 9.6 Prothrombin Time 11.5 Prothromb Time International Ratio 1.1 Activated Partial Thromboplast Time 57.4 Blood Urea Nitrogen 19 Creatinine 1.33 Random Glucose 121 Total Protein 5.3 Albumin 2.1 Calcium Level 8.2 Magnesium Level 2.4 Alkaline Phosphatase 71 Aspartate Amino Transf (AST/SGOT) 48 Alanine Aminotransferase (ALT/SGPT) 17 Total Bilirubin 2.0 Sodium Level 140 Potassium Level 3.0 Chloride Level 104 Carbon Dioxide Level 23.7 Anion Gap 12 Estimat Glomerular Filtration Rate 49 Lactic Acid Level 2.8 Date/Time Source Procedure Growth Status 06/28/17 21:05 Blood Peripheral Aerobic Blood Culture - Preliminary NO GROWTH IN 1 DAY Resulted 06/28/17 21:05 Blood Peripheral Anaerobic Blood Culture - Preliminary NO GROWTH IN 1 DAY Resulted Assessment and Plan Plan POD#1 s/p SMA embolectomy and patch angioplasty 1. To OR today with general surgery for ex lap and possible bowel resection; no additional revascularization options given terminal SMA thrombosis 2. Continue to provide pressor support and gentle IVF (EF 15%) 3. Needs continued and ultimately lifelong anticoagulation 4. appreciate palliative care input Overall prognosis grim. Jan Sommer MD FACS [employer]PV[employer] [facility] - [facility] V[facility] Surgery at [facility] [phone] Discharge Planning critically ill, depends on course Jan Sommer MD June 30, 2017 08:00
--- NOTE | 2017-06-30 08:05 | HHI.CCPN ---
Subjective Remarks/Hospital Course Hospital Course: 61-year-old female presents to the emergency department for evaluation of generalized abdominal pain. Patient was seen last night for the same. She states the pain has not improved. She states she has not had pain like this before. Current pain is 10/10, sharp throughout the abdomen. She reports swelling, but no fevers. She denies any chest pain. She denies any vomiting or diarrhea. Patient reports history of appendectomy, but no other abdominal surgeries. Patient was seen last night had labs, CT, chest x-ray completed. She was discharged with no emergent abnormality was found. Patient denies exacerbating or alleviating factors. 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 The patient was emergently taken to operating room for thrombectomy by a vascular surgeon. subjective: 06/29: remains intubated, sedated, critically ill, on vasopressors. overnight taken to OR for ex-lap and SMA embolectomy. at the conclusion of the case, bowel continued to appear ischemic. this AM, on vasopressin and phenylephrine. CVP is 1. uop has been adequate but marginal. lactate downtrending. LFTs slightly uptrended, unclear if early shock liver or ischemia from clot. 06/30: no improvements. remains in shock on vasopressors. lactate has not cleared , which would portend poor prognosis in shock. plan to go back to OR to evaluate bowel viability today. Echo yesterday with EF < 20%, global. did attempt trial of milrinone yesterday for ~2 hours with severe hypotension which prevented its further use. Cr increased to 1.3 today. LFTs slightly lower. Objective Vital Signs Date Time Temp Pulse Resp B/P (MAP) Pulse Ox O2 Delivery O2 Flow Rate FiO2 06/30/17 06:00 126 06/30/17 05:05 100 35 06/30/17 04:00 99.0 20 101/58 (72) 06/28/17 22:12 Nasal Cannula 2.00 Intake and Output 06/30/17 06/30/17 07/01/17 08:00 16:00 00:00 Intake Total 1700 ml Output Total 750 ml Balance 950 ml Result Diagram: 06/30/17 0430 06/30/17 0430 Imaging Last 24 hours Impressions Chest X-Ray 06/28/17 0000 Signed Impressions: Service Date/Time: Wednesday, June 28, 2017 19:20 - CONCLUSION: /Improvement in aeration Justo Sigala MD Abdomen/Pelvis CT 06/28/17 0000 Signed Impressions: Service Date/Time: Wednesday, June 28, 2017 20:18 - CONCLUSION: 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 HEENT: nc. at. perrl. mucous membranes moist. NECK: no jvd. trachea midline. CVL in place, site clean dry intact. CHEST: PRVC, 35% fio2. full mechanical support. PEEP 5. spo2 99% CV: normal rate, regular rhythm. sinus. frequent PACs. CVP 6. Abd: wound vac in place. soft, nondistended. no guarding. EXTR: distal pulses 2+. no peripheral edema. NEURO: RASS -2. intubated, sedated. follows commands. A/P Assessment and Plan Assessment: 61yF POD 2 s/p ex-lap and SMA embolectomy for SMA occlusion with persistence of her Bowel Ischemia. Remains very critically ill. continue levophed for map > 65 mmhg. back to OR today. continue supportive care. guarded prognosis at best. Plan by Systems: Neuro: Acute metabolic Encephalopathy - RASS goal -2 - propofol, fentanyl for goal RASS - no sedation vacation with open abdomen and while critically ill. Resp: Acute hypoxic and hypercarbic respiratory failure COPD - no weaning of mechanical ventilation until shock improves - wean fio2 for goal spo2 > 90% - vent bundle, hob elevated, nebs - spiriva. CV: Septic Shock Acute intravascular volume depletion - continue norepinephrine for goal map > 65 mmHg - LR mivf @ 125 cc/hr - q1h uop - continue to trend CVP Renal: - continue rose - q1h uop FEN/GI: Acute SMA thrombosis/occlusion Acute mesenteric ischemia s/p exploratory laparotomy with SMA embolectomy 06/28 Lactic Acidosis Acute intravascular volume depletion Acute protein calorie malnutrition- moderate - NPO while in shock with bowel ischemia - trend lactates - LR @ 125 cc/hr - maintain adequate perfusion pressure - continue heparin drip - will plan to start TPN tonight depending on clinical course. - anticipate prolonged ileus. - NGT to suction. Heme/ID: Mesenteric thrombus Intra-abdominal sepsis - continue zosyn. would plan on 4 days of abx per STOP-IT criteria unless clinical course dictates otherwise. - f/u culture data - continue heparin drip Endo: Hyperglycemia of Critical Illness - SSI Prophylaxis: GI: - pepcid iv DVT: - SCDs - heparin drip Lines: - 06/28: TLC - 06/28: art line - Rose must keep all lines today. critically ill. Dispo: remain in ICU. very critically ill. high risk for decompensation. Critical care time: 39 minutes, exclusive of separately billable procedures. Jose Antonio Rodriguez MD June 30, 2017 08:05
[2017-06-30] MEDS ORDERED: ICU - D/C ICU ELECTROLYTE ORDERS PRN (08:30)
[2017-06-30] MEDS ORDERED: ICU - MAGNESIUM SULFATE 4 GM/NS 100 ML IV PRN ×2 (08:30)
[2017-06-30] MEDS ORDERED: ICU - MAGNESIUM SULFATE 2 GM/NS 100 ML IV PRN ×2 (08:30)
[2017-06-30] MEDS ORDERED: ICU - SODIUM PHOSPHATE 30 MMOL/NS 250 ML IV PRN ×2 (08:30)
[2017-06-30] MEDS ORDERED: ICU - POTASSIUM PHOSPHATE MONOBASIC 500 MG TAB PO PRN (08:30)
[2017-06-30] MEDS ORDERED: POTASSIUM CHLORIDE 25 MEQ EFFERVESCENT TAB PO PRN (08:30)
[2017-06-30] MEDS ORDERED: ICU - POTASSIUM CHLORIDE/AQUEOUS SOLN 20 MEQ/100 ML IVPB IV PRN (08:30)
[2017-06-30] MEDS ORDERED: ICU - MAGNESIUM OXIDE 400 MG TAB PO PRN (08:30)
[2017-06-30] MEDS ORDERED: ICU - POTASSIUM PHOSPHATE 30 MMOL/NS 250 ML IV PRN ×2 (08:30)
[2017-06-30] MEDS ORDERED: ICU - CALL ORDERING PHYSICIAN PRN (08:30)
[2017-06-30] MEDS: CHLORHEXIDINE 0.12% (ORAL KIT) 15 ML CUP MT SCH ×2 (08:41→20:00)
[2017-06-30] MEDS: ARTIFICIAL TEARS OPTH SOLN 15 ML BTL EACH EYE SCH ×3 (08:41→16:57)
[2017-06-30] MEDS: SODIUM CHLORIDE 0.9% FLUSH 10 ML FLUSH IV FLUSH SCH ×2 (08:42→21:00)
[2017-06-30] MEDS: FAMOTIDINE 20 MG/2 ML VIAL IV PUSH SCH ×2 (08:46→22:49)
[2017-06-30] MEDS: DOCUSATE SODIUM 50 MG/SENNA 8.6 MG TAB PO SCH ×2 (08:46→21:00)
[2017-06-30] MEDS: ASPIRIN EC 81 MG TABEC PO SCH (08:46)
[2017-06-30] MEDS: TIOTROPIUM BROMIDE 18 MCG INH INH SCH (08:47)
[2017-06-30] MEDS: ICU - POTASSIUM CHLORIDE/AQUEOUS SOLN 40 MEQ/100 ML IVPB IV PRN (09:01)
[2017-06-30] MEDS ORDERED: THROMBIN (TOPICAL) 5,000 UNIT VIAL ONE (10:05)
[2017-06-30] MEDS ORDERED: BUPIVACAINE/EPINEPHRINE 0.5% PF 10 ML VIAL ONE (10:05)
[2017-06-30] MEDS ORDERED: GELFOAM SIZE 100 ONE (10:05)
--- NOTE | 2017-06-30 10:40 | PD.CAR.PN ---
CVT Progress Note Subjective/Hospital Course: 06/30/[address] 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 Patient has a wound VAC and will go today to the operating room by Dr. Dejesus to assess the viability of the small intestine based on which patient will have or not have some of the intestine resected If needed I will be available to assist with the vascular portion of the procedure As far as intensive care parameters are concerned patient this point is hemodynamically stable on small dose Levophed and does not appear to be acidotic. Good PO2 FiO2 gradient Patient underwent today exploratory laparotomy by Dr. Dejesus and I came to the room to evaluate the intestine in the blood flow Patient has excellent dopplerable brisk pulse and superior mesenteric artery and even in distal mesentery next to the intestine. SMA is completely open and saw the branches Unfortunately patient has large amount of very ischemic intestine which has not demarcated completely yet so we jointly decided to avoid any resection at this time, place another wound VAC and get a second look tomorrow Objective: Vital Signs Date Time Temp Pulse Resp B/P (MAP) Pulse Ox O2 Delivery O2 Flow Rate FiO2 06/30/17 08:33 100 35 06/30/17 06:00 126 06/30/17 05:05 100 35 06/30/17 04:00 35 06/30/17 04:00 119 06/30/17 04:00 99.0 119 20 101/58 (72) 100 06/30/17 02:47 100 35 06/30/17 02:00 124 06/30/17 00:18 123 100/64 06/30/17 00:00 122 06/30/17 00:00 35 06/30/17 00:00 100.1 122 21 102/62 (75) 100 06/29/17 23:39 100 35 06/29/17 22:00 128 06/29/17 20:00 99.5 128 21 122/74 (90) 100 06/29/17 20:00 35 06/29/17 20:00 128 06/29/17 19:40 100 35 06/29/17 18:00 126 06/29/17 16:00 100.4 136 24 92/58 (69) 100 06/29/17 16:00 50 06/29/17 16:00 136 06/29/17 15:11 100 35 06/29/17 14:39 121 101/68 06/29/17 14:00 120 06/29/17 12:00 117 06/29/17 12:00 100.2 117 21 100/69 (79) 100 06/29/17 12:00 50 06/29/17 11:32 100 35 Labs: Laboratory Tests Test 06/29/17 22:55 06/30/17 04:30 Activated Partial Thromboplast Time 58.4 SEC (24.3-30.1) 57.4 SEC (24.3-30.1) Lactic Acid Level 2.8 mmol/L (0.4-2.0) 2.8 mmol/L (0.4-2.0) White Blood Count 12.4 TH/MM3 (4.0-11.0) Red Blood Count 4.78 MIL/MM3 (4.00-5.30) Hemoglobin 12.8 GM/DL (11.6-15.3) Hematocrit 39.3 % (35.0-46.0) Mean Corpuscular Volume 82.2 FL (80.0-100.0) Mean Corpuscular Hemoglobin 26.7 PG (27.0-34.0) Mean Corpuscular Hemoglobin Concent 32.5 % (32.0-36.0) Red Cell Distribution Width 14.5 % (11.6-17.2) Platelet Count 179 TH/MM3 (150-450) Mean Platelet Volume 9.6 FL (7.0-11.0) Prothrombin Time 11.5 SEC (9.8-11.6) Prothromb Time International Ratio 1.1 RATIO Blood Urea Nitrogen 19 MG/DL (7-18) Creatinine 1.33 MG/DL (0.50-1.00) Random Glucose 121 MG/DL (74-106) Total Protein 5.3 GM/DL (6.4-8.2) Albumin 2.1 GM/DL (3.4-5.0) Calcium Level 8.2 MG/DL (8.5-10.1) Magnesium Level 2.4 MG/DL (1.5-2.5) Alkaline Phosphatase 71 U/L (45-117) Aspartate Amino Transf (AST/SGOT) 48 U/L (15-37) Alanine Aminotransferase (ALT/SGPT) 17 U/L (10-53) Total Bilirubin 2.0 MG/DL (0.2-1.0) Sodium Level 140 MEQ/L (136-145) Potassium Level 3.0 MEQ/L (3.5-5.1) Chloride Level 104 MEQ/L (98-107) Carbon Dioxide Level 23.7 MEQ/L (21.0-32.0) Anion Gap 12 MEQ/L (5-15) Estimat Glomerular Filtration Rate 49 ML/MIN (>89) Result Diagram: 06/30/17 0430 06/30/17 0430 Marialuisa Avila MD June 30, 2017 10:40
--- NOTE | 2017-06-30 11:29 | HHI.HCPN ---
Reason for visit a. To assist with evaluation and management of symptoms including: Pain, dyspnea b. To assist medical decision maker(s) with: better understanding of current medical conditions; weighing benefits/burdens of medical treatment options; making medical treatment decisions. Subjective/Interval History Patient seen today to follow up on symptoms of abdominal pain and dyspnea. Status post SMA thrombectomy 06/29, she remains with wound VAC and abdominal binder pending exploratory laparotomy today to evaluate recovery of the small bowel. Surgery is scheduled for today at noon for reexploration. Lactic acid remains elevated at 2.8 and she remains on vasopressors for hemodynamic support. Dr. Sommer opines that this lends to a grim prognosis. Transaminases are trending down, bilirubin is trending up. Blood cultures remain pending and negative so far. She winces with light palpation of the abdomen in all 4 quadrants; as she is intubated and sedated, she is unable to verbalize her symptoms. She remains on mechanical ventilation at PRVC/AC, 35% FiO2, PEEP 5, breathing 8 bpm over vent rate of 12 bpm. Occasionally tachypneic up to 24 bpm respirations are symmetric, unlabored, no accessory muscle use with no adventitious sounds. She remains mildly tachycardic with heart rates up to the 120s and borderline febrile with T-MAX of 100.4. Echocardiogram done yesterday shows results similar to prior echo done in 2014 with ejection fraction less than 20% with mild tricuspid regurgitation, confirming chronic systolic heart failure. Given her severe, critical illness and hypotension requiring vasopressor support, she is not a candidate for optimizing cardiac therapy. . Family/friend interactions She has 3 children who lives in the [place] area, Jose Antonio Lizarraga and Reena, and all are involved in telephone updates at this time. Yesterday I spoke with Zia and Reena, and today have been contacted by Doyle. Aneeshloly is reachable only through her , while she is at work. Updates were provided regarding onset of illness, to include her prior ED visit, imaging findings and follow-up directions, surgical findings to include bowel ischemia and plan to rule out time for reperfusion prior to making further decisions, clinical course, to include elevated lactate, need for blood pressure support and ventilator support, and plans for continued care , to include the possibility of very poor outcome or . Palliative care purpose and focus was reviewed, questions answered and contact information provided. Family has requested update calls as further clinical information becomes available. Contact information has been shared with the RN caring for the patient today. . Advance Directives Living Will: Never completed Health Care Surrogate: Never completed Durable Power of Taxation Accountant: Never completed Advance Directive Specifics Date completed: No records available. . Health Care Surrogate(s): No records available. . Documented care wishes: No records available. . Objective Vital Signs Date Time Temp Pulse Resp B/P (MAP) Pulse Ox O2 Delivery O2 Flow Rate FiO2 06/30/17 08:33 100 35 06/30/17 06:00 126 06/30/17 05:05 100 35 06/30/17 04:00 35 06/30/17 04:00 119 06/30/17 04:00 99.0 119 20 101/58 (72) 100 06/30/17 02:47 100 35 06/30/17 02:00 124 06/30/17 00:18 123 100/64 06/30/17 00:00 122 06/30/17 00:00 35 06/30/17 00:00 100.1 122 21 102/62 (75) 100 06/29/17 23:39 100 35 06/29/17 22:00 128 06/29/17 20:00 99.5 128 21 122/74 (90) 100 06/29/17 20:00 35 06/29/17 20:00 128 06/29/17 19:40 100 35 06/29/17 18:00 126 06/29/17 16:00 100.4 136 24 92/58 (69) 100 06/29/17 16:00 50 06/29/17 16:00 136 06/29/17 15:11 100 35 06/29/17 14:39 121 101/68 06/29/17 14:00 120 06/29/17 12:00 117 06/29/17 12:00 100.2 117 21 100/69 (79) 100 06/29/17 12:00 50 06/29/17 11:32 100 35 Intake & Output 06/30/17 06/30/17 07:00 19:00 Intake Total 2900 ml Output Total 750 ml Balance 2150 ml Intake IV Total 2900 ml Output Urine Total 400 ml Stool Total 0 ml Drainage Total 350 ml Physical Exam CONSTITUTIONAL/GENERAL: This is an adequately nourished patient, intubated, sedated, in no apparent distress. TUBES/LINES/DRAINS: Right IJ central line,, OG tube, Monreal, right radial line, left wrist PIV. SKIN: No jaundice, rashes, or lesions. No wounds seen anteriorly. Skin temperature appropriate. Not diaphoretic. HEAD: Atraumatic. Normocephalic. EYES: Pupils equal and round and reactive. Opens eyes to voice. No scleral icterus. No injection or drainage. Fundi not examined. ENT: Hearing grossly normal. Nose without bleeding or purulent drainage. Throat without visible erythema, exudates, masses, or lesions. NECK: Trachea midline. Supple, nontender. No palpable thyroid enlargement or nodularity. CARDIOVASCULAR: S1, S2, tachycardic rate, regular rhythm, unable to auscultate murmur today. RESPIRATORY/CHEST: Symmetric, unlabored respirations. Clear to auscultation. Breath sounds equal bilaterally. No wheezes, rales, or rhonchi. GASTROINTESTINAL: Abdomen soft, tender, nondistended, wound VAC intact with abdominal binder. No auscultated bowel sounds.No guarding. GENITOURINARY: Without palpable bladder distension. Monreal catheter in place. MUSCULOSKELETAL: Extremities without clubbing, cyanosis, or edema. No joint tenderness or effusion noted. No calf tenderness. Feet cool with palpable pulses. LYMPHATICS: No palpable cervical or supraclavicular adenopathy. NEUROLOGICAL: Sedated, arousable, opens eyes to command. PSYCHIATRIC: Mildly anxious when aroused. . Diagnostic Tests Laboratory Laboratory Tests Test 06/28/17 18:00 06/28/17 19:05 06/28/17 19:35 06/28/17 21:00 White Blood Count 20.0 TH/MM3 (4.0-11.0) Red Blood Count 6.04 MIL/MM3 (4.00-5.30) Hemoglobin 16.6 GM/DL (11.6-15.3) Hematocrit 51.1 % (35.0-46.0) Mean Corpuscular Volume 84.6 FL (80.0-100.0) Mean Corpuscular Hemoglobin 27.4 PG (27.0-34.0) Mean Corpuscular Hemoglobin Concent 32.4 % (32.0-36.0) Red Cell Distribution Width 15.0 % (11.6-17.2) Platelet Count 259 TH/MM3 (150-450) Mean Platelet Volume 9.5 FL (7.0-11.0) Neutrophils (%) (Auto) 89.7 % (16.0-70.0) Lymphocytes (%) (Auto) 3.3 % (9.0-44.0) Monocytes (%) (Auto) 6.9 % (0.0-8.0) Eosinophils (%) (Auto) 0.0 % (0.0-4.0) Basophils (%) (Auto) 0.1 % (0.0-2.0) Neutrophils # (Auto) 18.0 TH/MM3 (1.8-7.7) Lymphocytes # (Auto) 0.7 TH/MM3 (1.0-4.8) Monocytes # (Auto) 1.4 TH/MM3 (0-0.9) Eosinophils # (Auto) 0.0 TH/MM3 (0-0.4) Basophils # (Auto) 0.0 TH/MM3 (0-0.2) CBC Comment DIFF FINAL Differential Comment Blood Urea Nitrogen 12 MG/DL (7-18) Creatinine 0.80 MG/DL (0.50-1.00) Random Glucose 99 MG/DL (74-106) Total Protein 6.0 GM/DL (6.4-8.2) Albumin 2.4 GM/DL (3.4-5.0) Calcium Level 6.8 MG/DL (8.5-10.1) Alkaline Phosphatase 88 U/L (45-117) Aspartate Amino Transf (AST/SGOT) 67 U/L (15-37) Alanine Aminotransferase (ALT/SGPT) 27 U/L (10-53) Total Bilirubin 0.8 MG/DL (0.2-1.0) Sodium Level 144 MEQ/L (136-145) Potassium Level 3.5 MEQ/L (3.5-5.1) Chloride Level 114 MEQ/L (98-107) Carbon Dioxide Level 16.8 MEQ/L (21.0-32.0) Anion Gap 13 MEQ/L (5-15) Estimat Glomerular Filtration Rate 89 ML/MIN (>89) Protein Corrected Calcium 7.4 MG/DL (8.5-10.1) Lipase 64 U/L (73-393) Prothrombin Time 12.7 SEC (9.8-11.6) Prothromb Time International Ratio 1.3 RATIO Activated Partial Thromboplast Time 21.9 SEC (24.3-30.1) Urine Color YELLOW (YELLW/STRAW) Urine Turbidity HAZY (CLEAR) Urine pH 5.0 (5.0-8.5) Urine Specific [place] 1.022 (1.002-1.035) Urine Protein 30 mg/dL (NEG-TRACE) Urine Glucose (UA) NEG mg/dL (NEG) Urine Ketones NEG mg/dL (NEG) Urine Occult Blood TRACE (NEG) Urine Nitrite NEG (NEG) Urine Bilirubin NEG (NEG) Urine Urobilinogen LESS THAN 2.0 MG/DL (LESS Urine Leukocyte Esterase NEG (NEG) Urine RBC LESS THAN 1 /hpf (0-3) Urine WBC 1 /hpf (0-5) Urine Squamous Epithelial Cells 4 /hpf (0-5) Urine Bacteria OCC /hpf (NONE) Urine Hyaline Casts 3 /lpf (RARE) Urine Mucus FEW /lpf (OCC) Microscopic Urinalysis Comment CULT NOT INDICATED Lactic Acid Level 4.2 mmol/L (0.4-2.0) Test 06/29/17 01:30 06/29/17 01:45 06/29/17 01:57 06/29/17 05:10 Nasal Screen MRSA (PCR) MRSA NOT DETECTED (NOT White Blood Count 13.1 TH/MM3 (4.0-11.0) 13.1 TH/MM3 (4.0-11.0) Red Blood Count 5.18 MIL/MM3 (4.00-5.30) 5.24 MIL/MM3 (4.00-5.30) Hemoglobin 14.1 GM/DL (11.6-15.3) 14.2 GM/DL (11.6-15.3) Hematocrit 42.6 % (35.0-46.0) 43.1 % (35.0-46.0) Mean Corpuscular Volume 82.3 FL (80.0-100.0) 82.2 FL (80.0-100.0) Mean Corpuscular Hemoglobin 27.2 PG (27.0-34.0) 27.2 PG (27.0-34.0) Mean Corpuscular Hemoglobin Concent 33.0 % (32.0-36.0) 33.0 % (32.0-36.0) Red Cell Distribution Width 14.2 % (11.6-17.2) 14.3 % (11.6-17.2) Platelet Count 234 TH/MM3 (150-450) 236 TH/MM3 (150-450) Mean Platelet Volume 8.9 FL (7.0-11.0) 9.4 FL (7.0-11.0) Prothrombin Time 14.4 SEC (9.8-11.6) Prothromb Time International Ratio 1.4 RATIO Activated Partial Thromboplast Time 103.5 SEC (24.3-30.1) 46.3 SEC (24.3-30.1) Blood Urea Nitrogen 17 MG/DL (7-18) Creatinine 0.97 MG/DL (0.50-1.00) Random Glucose 119 MG/DL (74-106) Total Protein 5.8 GM/DL (6.4-8.2) Albumin 2.3 GM/DL (3.4-5.0) Calcium Level 7.1 MG/DL (8.5-10.1) Phosphorus Level 3.2 MG/DL (2.5-4.9) Magnesium Level 2.2 MG/DL (1.5-2.5) Alkaline Phosphatase 83 U/L (45-117) Aspartate Amino Transf (AST/SGOT) 109 U/L (15-37) Alanine Aminotransferase (ALT/SGPT) 28 U/L (10-53) Total Bilirubin 1.2 MG/DL (0.2-1.0) Sodium Level 142 MEQ/L (136-145) Potassium Level 3.6 MEQ/L (3.5-5.1) Chloride Level 105 MEQ/L (98-107) Carbon Dioxide Level 25.2 MEQ/L (21.0-32.0) Anion Gap 12 MEQ/L (5-15) Estimat Glomerular Filtration Rate 71 ML/MIN (>89) Lactic Acid Level 2.8 mmol/L (0.4-2.0) Protein Corrected Calcium 7.8 MG/DL (8.5-10.1) Blood Gas Puncture Site ART LINE Blood Gas Patient Temperature 98.6 Blood Gas HCO3 22 mmol/L (22-26) Blood Gas Base Excess -1.9 mmol/L (-2-2) Blood Gas Oxygen Saturation 97 % (90-100) Arterial Blood pH 7.43 (7.380-7.420) Arterial Blood Partial Pressure CO2 33 mmHg (38-42) Arterial Blood Partial Pressure O2 203 mmHg (61-120) Arterial Blood Oxygen Content 20.3 Vol % (12.0-20.0) Arterial Blood Carboxyhemoglobin 1.5 % (0-4) Arterial Blood Methemoglobin 1.0 % (0-2) Blood Gas Hemoglobin 14.6 G/DL (12.0-16.0) Oxygen Delivery Device VENTILATOR Blood Gas Ventilator Setting PRVC/AC Blood Gas Inspired Oxygen 50 % Neutrophils (%) (Auto) 82.9 % (16.0-70.0) Lymphocytes (%) (Auto) 7.0 % (9.0-44.0) Monocytes (%) (Auto) 9.9 % (0.0-8.0) Eosinophils (%) (Auto) 0.0 % (0.0-4.0) Basophils (%) (Auto) 0.2 % (0.0-2.0) Neutrophils # (Auto) 10.8 TH/MM3 (1.8-7.7) Lymphocytes # (Auto) 0.9 TH/MM3 (1.0-4.8) Monocytes # (Auto) 1.3 TH/MM3 (0-0.9) Eosinophils # (Auto) 0.0 TH/MM3 (0-0.4) Basophils # (Auto) 0.0 TH/MM3 (0-0.2) CBC Comment AUTO DIFF Differential Total Cells Counted 100 Neutrophils % (Manual) 49 % (16-70) Band Neutrophils % 29 % (0-6) Lymphocytes % 11 % (9-44) Monocytes % 3 % (0-8) Neutrophils # (Manual) 11.3 TH/MM3 (1.8-7.7) Metamyelocytes 7 % (0-1) Myelocytes 1 % (0-0) Differential Comment FINAL DIFF MANUAL Toxic Vacuolation PRESENT (NONE SEEN) Platelet Estimate NORMAL (NORMAL) Platelet Morphology Comment NORMAL (NORMAL) Test 06/29/17 07:15 06/29/17 10:45 06/29/17 15:45 06/29/17 17:00 Lactic Acid Level 3.6 mmol/L (0.4-2.0) 3.5 mmol/L (0.4-2.0) 3.5 mmol/L (0.4-2.0) Activated Partial Thromboplast Time 39.7 SEC (24.3-30.1) 47.8 SEC (24.3-30.1) Test 06/29/17 22:55 06/30/17 04:30 Activated Partial Thromboplast Time 58.4 SEC (24.3-30.1) 57.4 SEC (24.3-30.1) Lactic Acid Level 2.8 mmol/L (0.4-2.0) 2.8 mmol/L (0.4-2.0) White Blood Count 12.4 TH/MM3 (4.0-11.0) Red Blood Count 4.78 MIL/MM3 (4.00-5.30) Hemoglobin 12.8 GM/DL (11.6-15.3) Hematocrit 39.3 % (35.0-46.0) Mean Corpuscular Volume 82.2 FL (80.0-100.0) Mean Corpuscular Hemoglobin 26.7 PG (27.0-34.0) Mean Corpuscular Hemoglobin Concent 32.5 % (32.0-36.0) Red Cell Distribution Width 14.5 % (11.6-17.2) Platelet Count 179 TH/MM3 (150-450) Mean Platelet Volume 9.6 FL (7.0-11.0) Prothrombin Time 11.5 SEC (9.8-11.6) Prothromb Time International Ratio 1.1 RATIO Blood Urea Nitrogen 19 MG/DL (7-18) Creatinine 1.33 MG/DL (0.50-1.00) Random Glucose 121 MG/DL (74-106) Total Protein 5.3 GM/DL (6.4-8.2) Albumin 2.1 GM/DL (3.4-5.0) Calcium Level 8.2 MG/DL (8.5-10.1) Magnesium Level 2.4 MG/DL (1.5-2.5) Alkaline Phosphatase 71 U/L (45-117) Aspartate Amino Transf (AST/SGOT) 48 U/L (15-37) Alanine Aminotransferase (ALT/SGPT) 17 U/L (10-53) Total Bilirubin 2.0 MG/DL (0.2-1.0) Sodium Level 140 MEQ/L (136-145) Potassium Level 3.0 MEQ/L (3.5-5.1) Chloride Level 104 MEQ/L (98-107) Carbon Dioxide Level 23.7 MEQ/L (21.0-32.0) Anion Gap 12 MEQ/L (5-15) Estimat Glomerular Filtration Rate 49 ML/MIN (>89) Result Diagram: 06/30/1742906/30/17 043 Microbiology Microbiology Date/Time Source Procedure Growth Status 06/28/17 21:05 Blood Peripheral Aerobic Blood Culture - Preliminary NO GROWTH IN 1 DAY Resulted 06/28/17 21:05 Blood Peripheral Anaerobic Blood Culture - Preliminary NO GROWTH IN 1 DAY Resulted 06/28/17 20:50 Blood Peripheral Aerobic Blood Culture - Preliminary NO GROWTH IN 1 DAY Resulted 06/28/17 20:50 Blood Peripheral Anaerobic Blood Culture - Preliminary NO GROWTH IN 1 DAY Resulted Procedures 06/29: Exploratory laparotomy with application of VAC device 06/29: Exploratory laparotomy with lysis of adhesions, SMA embolectomy with patch angioplasty using bovine pericardium. . Assessment and Plan Disease Oriented Problem List: (1) Congestive heart failure (CHF) (2) COPD (chronic obstructive pulmonary disease) (3) Occlusion of superior mesenteric artery (4) Acute bowel infarction Symptom Scale: (1) Abdominal pain 0-10 Scale: Unable to quantify (Intubated, sedated.) (2) Dyspnea and respiratory abnormalities 0-10 Scale: Unable to quantify (Intubated, sedated.) Pertinent Non-Medical Issues Psychosocial:Born in [place], she has 3 living children, per my discussion with her son Zia Rao. He also has a brother Jose Antonio Edward and a sister Moises Rao. 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 Legal: She reportedly has 3 children who would be her legal decision makers unless advanced directive paperwork can be located. Ethical issues impacting care: None noted. . Important Contacts Son: Zia Rao Daughter: Elisa Valentin (Jalen) [phone] or [phone] (Elisa's ) Son: Jose Antonio Edward [phone] Prognosis This is a 61-year-old -[place] female with acute superior mesenteric artery thrombosis, now status post embolectomy with findings of ischemic bowel throughout most of the small intestine during exploratory laparotomy. Once embolectomy was performed, it was felt to be the patient's best chance at survival to allow a short time for reperfusion and then reevaluate to see if there had been any bowel recovery. She is at high risk for complications and per surgical notes has a high percentage of mortality from the ischemic event and, he further opines that she would not survive with a total small bowel resection. Her prognosis appears poor and she is at elevated risk of continued complications and decline. . Code Status: Full Code Plan PLAN: Legal decision maker:, Not capacitated for decision-making purposes. Pending receipt of advanced directive paperwork, per [place] statutes the legal decision makers would be the majority of her adult children, Zia, Jose Antonio and Reena. Patient is currently intubated and sedated. Goals: Aggressive at this time CODE STATUS: FULL CODE SYMPTOMS: * Pain: She had debilitating, exquisite pain presurgery and now post embolectomy remains with some discomfort, especially with abdominal palpation. She is at risk for continued pain due to bedbound status, invasive lines, open surgical incision, wound VAC. She has morphine 2 mg, q2h available. Last dose given at 20: 25 515. Sedation has been increased since yesterday to allow better vent synchrony. Patient exhibits no signs or symptoms of discomfort at rest. Does wince and grimace with light abdominal palpation. * Dyspnea: Multifactorial to include pain, history of COPD and history of chronic systolic heart failure with EF less than, with some trace-mild tricuspid regurgitation noted 20%. She is currently receiving ventilator support at 35 % FiO2 and is tolerating with some tachypnea. In addition to the as needed morphine, she also has DuoNeb both scheduled and PRN. Given her fragile hemodynamic status, she is currently not a candidate for optimizing cardiac therapy with beta-blockers, MONALISA eyes or diuretics. Inotropic support was attempted yesterday with milrinone, but patient became developed worsening hypotension and so that had to be discontinued. No further recommendations at this time. Palliative care will continue to follow the patient during hospital course as condition evolves, to assist patient/decision-maker with understanding of their medical conditions, weighing benefits/burdens of treatment options, for clarification of goals of treatment. Additionally will assist with any symptoms of palliative concern. . Attestation To help prompt me to consider important information that might be impacting today's encounter and assessment, information from prior notes written by myself or my colleagues may have been "brought forward" into today's note. My signature on this note, however, is an attestation that I personally performed the exam, history, and/or decision-making noted today, and, unless otherwise indicated, the interactions with patient, family, and staff as well as the review of records all occurred today. I also attest that the listed assessment and stated plan reflect my best clinical judgment today based on the combination of historical information, prior notes, and today's exam/ interactions. When time spent is documented, it refers only to time spent today by the signer, or if indicated, combined time spent today by collaborating physician/nurse practitioner. . Shahnaz Romero June 30, 2017 11:29
[2017-06-30] MEDS ORDERED: LACTATED RINGER'S 1000 ML INJ 1,000 ML IV ONE (12:00)
[2017-06-30] MEDS ORDERED: PHENYLEPH/NS 1000 MCG/10 ML SYR IV ONE (12:00)
[2017-06-30] MEDS ORDERED: ROCURONIUM INJ 50 MG/5 ML SYRINGE IV PUSH ONE (12:00)
[2017-06-30] MEDS ORDERED: FLUORESCEIN SOD 10% SOLN 500 MG/5 ML AMP ONE (12:28)
[2017-06-30] MEDS: MIDAZOLAM HCL 2 MG/2 ML VIAL IV PUSH PRN (13:47)
--- NOTE | 2017-06-30 14:16 | TN ---
cc: Chalino Dejesus MD DATE OF SURGERY: 06/30/2017 DATE OF PROCEDURE: 06/30/2017. PREOPERATIVE DIAGNOSIS: Previous ischemic bowel from thrombosis of SMA. POSTOPERATIVE DIAGNOSIS: [place]-ischemia from 10 cm from the ligament of Treitz to about 5 cm of the distal ileum. PROCEDURE PERFORMED: 1. Exploratory laparotomy. 2. Lysis of adhesions. 3. Doppler evaluation of the superior mesenteric artery. 4. Doppler evaluation of the mesenteric border of numerous sites of the small bowel. 5. Evaluation of blood supply with a Wood lamp. ANESTHESIA: General. SURGEON: Dr. Dejesus. INDICATIONS FOR PROCEDURE: This is an unfortunate lady who had a thrombectomy of her SMA about a little over 30 hours ago. She had [place]-ischemia of entirety of her small bowel at the time of the initial operation. We planned a second look operation to evaluate the viability of her ischemic bowel. PROCEDURE: The patient is in the operating room. She is from the ICU. She is on the ventilator. She is on drips, her heparin drip was stopped. The VAC device was removed. The area was then prepped. A timeout is done. No prophylactic antibiotics were given because they are not indicated. Small bowel was run from the ligament of Treitz to the ileocecal valve. Essentially having ischemic event in the entirety of the bowel, some more involved than other areas. We then with the Doppler device checked the superior mesenteric artery, where we got a very bounding pulse at this area. We checked various levels of the small bowel, the mesenteric border and most of the areas did have a slight pulse in this area. Had Anesthesia give 5 mL of fluorescein dye and using the Wood lamp we do have some blood flow into the mesentery of the small bowel. Faint supply can be seen on splotchy areas of the entirety of the bowel. I had Dr. Avila, who is covering for Dr. Sommer, evaluate the bowel in the operating room as well, since he is covering for Dr. Sommer in his absence. The area was then irrigated. At this point, I felt that she would not benefit from any resection. I think we need to wait another 48 hours to see if any of this bowel demarcates. I had some communication with Dr. Norm Rodriguez, the costume shop coordinator, about the severity of the ischemic bowel. Simply then reapplied the VAC dressing device on the abdomen and placed it on 125 mm of negative pressure. In summary, I doubt this lady has a survivable event; however, I think another 48 hours to see if any of this bowel recovers. I spoke to the son after surgery and reviewed all the findings Chalino Dejesus MD JDB/TL/ , 01:23 PM , 01:55 PM MTDD
--- NOTE | 2017-06-30 22:17 | EKG ---
Date Performed: 06/30/2017 Time Performed: 06:44:24 PTAGE: 61 years EKG: Sinus tachycardia. Short OH interval Inferior infarct - age undetermined Left ventricular h ypertrophy Anterolateral ST-T changes are probably due to ventricular hypertrophy Abnormal ECG PREVIOUS TRACING : 06/27/2017 22.25 Compared to previous tracing, sinus tachycardia is new DOCTOR: Daniel Cruz Interpretating Date/Time 06/30/2017 22:16:43
[2017-07-01] VITALS (17 sets, daily range): BP systolic 87–113; BP diastolic 62–77; PULSE 96–128; RESP 14–21; TEMP 98–98.9; O2SAT 100
[2017-07-01 00:50] LABS: BICARBONATE 23.6 MEQ/L (21.0-32.0); CALCIUM 7.7 MG/DL (8.5-10.1); CREATININE 1.44 MG/DL (0.50-1.00); MAGNESIUM 2.6 MG/DL (1.5-2.5); PHOSPHORUS 2.8 MG/DL (2.5-4.9)
[2017-07-01] MEDS: PROPOFOL 1000 MG/100 ML INJ 100 ML IV PRN ×2 (01:06→09:46)
[2017-07-01] MEDS: MIDAZOLAM HCL 2 MG/2 ML VIAL IV PUSH PRN (01:21)
[2017-07-01] MEDS: fentaNYL DRIP 250 ML IV PRN (01:41)
[2017-07-01] MEDS: PIPERACIL-TAZO 4.5 GM PREMIX 100 ML IV SCH ×4 (02:20→20:05)
[2017-07-01] MEDS: RESP: ALBUTEROL 2.5 MG/IPRATROPIUM 0.5 MG NEB (SCH) INH ×4 (02:39→20:21)
[2017-07-01] MEDS: CHLORHEXIDINE GLUCONATE 2 % 1 PACK (2 CLOTHS) TOP SCH (03:40)
[2017-07-01 04:23] LABS: HEMATOCRIT 35.3 % (35.0-46.0); HEMOGLOBIN 11.6 GM/DL (11.6-15.3); MEAN CELL VOLUME 80.7 FL (80.0-100.0); MEAN CORPUSCULAR HEMOGLOBIN 26.6 PG (27.0-34.0); MEAN PLATELET VOLUME 10.1 FL (7.0-11.0); PLATELET COUNT 189 TH/MM3 (150-450); RED BLOOD COUNT 4.37 MIL/MM3 (4.00-5.30); RED CELL DISTRIBUTION WIDTH 14.6 % (11.6-17.2); WHITE BLOOD COUNT 11.3 TH/MM3 (4.0-11.0)
[2017-07-01] MEDS: HEPARIN-D5W 25,000 U/250 ML 250 ML IV PRN (04:29)
[2017-07-01 04:32] LABS: PROTHROMBIN TIME - PATIENT 10.1 SEC (9.8-11.6)
[2017-07-01 04:49] LABS: ALBUMIN 1.5 GM/DL (3.4-5.0); ALKALINE PHOSPHATASE 85 U/L (45-117); ALT (GPT) 17 U/L (10-53); AST (GOT) 36 U/L (15-37); BICARBONATE 22.7 MEQ/L (21.0-32.0); BLOOD UREA NITROGEN 23 MG/DL (7-18); CHLORIDE 105 MEQ/L (98-107); CREATININE 1.34 MG/DL (0.50-1.00); GLOMERULAR FILTRATION RATE 49 ML/MIN (>89); GLUCOSE,RANDOM 108 MG/DL (74-106); SODIUM (NA) 138 MEQ/L (136-145); TOTAL BILIRUBIN ADULT 1.7 MG/DL (0.2-1.0); TOTAL PROTEIN 5.1 GM/DL (6.4-8.2)
[2017-07-01] MEDS: LACTATED RINGER'S 1000 ML INJ 1,000 ML IV SCH ×2 (06:32→15:11)
[2017-07-01] MEDS: ICU - POTASSIUM CHLORIDE/AQUEOUS SOLN 40 MEQ/100 ML IVPB IV PRN (06:41)
--- NOTE | 2017-07-01 08:13 | HHI.CCPN ---
Subjective Remarks/Hospital Course Hospital Course: 61-year-old female presents to the emergency department for evaluation of generalized abdominal pain. Patient was seen last night for the same. She states the pain has not improved. She states she has not had pain like this before. Current pain is 10/10, sharp throughout the abdomen. She reports swelling, but no fevers. She denies any chest pain. She denies any vomiting or diarrhea. Patient reports history of appendectomy, but no other abdominal surgeries. Patient was seen last night had labs, CT, chest x-ray completed. She was discharged with no emergent abnormality was found. Patient denies exacerbating or alleviating factors. 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 The patient was emergently taken to operating room for thrombectomy by a vascular surgeon. subjective: 06/29: remains intubated, sedated, critically ill, on vasopressors. overnight taken to OR for ex-lap and SMA embolectomy. at the conclusion of the case, bowel continued to appear ischemic. this AM, on vasopressin and phenylephrine. CVP is 1. uop has been adequate but marginal. lactate downtrending. LFTs slightly uptrended, unclear if early shock liver or ischemia from clot. 06/30: no improvements. remains in shock on vasopressors. lactate has not cleared , which would portend poor prognosis in shock. plan to go back to OR to evaluate bowel viability today. Echo yesterday with EF < 20%, global. did attempt trial of milrinone yesterday for ~2 hours with severe hypotension which prevented its further use. Cr increased to 1.3 today. LFTs slightly lower. 07/01: taken back to OR yesterday with significant infarcted bowel. replaced wound vac on with plan to wait until Wednesday to see if areas of viable bowel will better demarcate. remains on levophed. family made patient DNR yesterday. overall prognosis quite poor. Objective Vital Signs Date Time Temp Pulse Resp B/P (MAP) Pulse Ox O2 Delivery O2 Flow Rate FiO2 07/01/17 06:00 119 07/01/17 05:23 110/75 07/01/17 04:32 100 30 07/01/17 04:00 98.8 21 06/28/17 22:12 Nasal Cannula 2.00 Intake and Output 07/01/17 07/01/17 07/02/17 08:00 16:00 00:00 Intake Total 370 ml Output Total 775 ml Balance -405 ml Result Diagram: 07/01/17 0400 07/01/17 0400 Imaging Last 24 hours Impressions Chest X-Ray 06/28/17 0000 Signed Impressions: Service Date/Time: Wednesday, June 28, 2017 19:20 - CONCLUSION: /Improvement in aeration Justo Sigala MD Abdomen/Pelvis CT 06/28/17 0000 Signed Impressions: Service Date/Time: Wednesday, June 28, 2017 20:18 - CONCLUSION: 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 HEENT: nc. at. perrl. mucous membranes moist. NECK: no jvd. trachea midline. CVL in place, site clean dry intact. CHEST: PRVC, 30% fio2. full mechanical support. PEEP 5. spo2 99% CV: normal rate, regular rhythm. sinus. frequent PACs. Abd: wound vac in place. soft, nondistended. no guarding. EXTR: distal pulses 2+. no peripheral edema. NEURO: RASS -2. intubated, sedated. follows commands. A/P Assessment and Plan Assessment: 61yF POD 3 s/p ex-lap and SMA embolectomy for SMA occlusion with persistence of her Bowel Ischemia. POD 1 s/p re-exploration, washout. Remains very critically ill. continue levophed for map > 65 mmhg. back to OR Wednesday. continue supportive care. guarded prognosis at best. Plan by Systems: Neuro: Acute metabolic Encephalopathy - RASS goal -2 - propofol, fentanyl for goal RASS - no sedation vacation with open abdomen and while critically ill. Resp: Acute hypoxic and hypercarbic respiratory failure COPD - no weaning of mechanical ventilation until shock improves - wean fio2 for goal spo2 > 90% - vent bundle, hob elevated, nebs - spiriva. CV: Septic Shock- persistent. Acute intravascular volume depletion - continue norepinephrine for goal map > 65 mmHg - LR mivf @ 125 cc/hr - q1h uop - continue to trend CVP Renal: Acute kidney injury - continue rose - q1h uop - renal injury secondary to shock FEN/GI: Acute SMA thrombosis/occlusion Acute mesenteric ischemia s/p exploratory laparotomy with SMA embolectomy 06/28 s/p washout and re-exploration with large areas of infarcted bowel 06/30 Lactic Acidosis- slowly resolving. Acute intravascular volume depletion Acute protein calorie malnutrition- severe - NPO while in shock with bowel ischemia - trend lactates - LR @ 125 cc/hr - maintain adequate perfusion pressure - continue heparin drip - TPN in the near future. - anticipate prolonged ileus. - NGT to suction. Heme/ID: Mesenteric thrombus Intra-abdominal sepsis - continue zosyn. would continue zosyn for at least 4 days after definitive operation. - f/u culture data - continue heparin drip Endo: Hyperglycemia of Critical Illness - SSI Prophylaxis: GI: - pepcid iv DVT: - SCDs - heparin drip Lines: - 06/28: TLC - 06/28: art line - Rose must keep all lines today. critically ill. Dispo: remain in ICU. very critically ill. Critical care time: 31 minutes, exclusive of separately billable procedures. Jose Antonio Rodriguez MD July 01, 2017 08:13
--- NOTE | 2017-07-01 08:56 | PD.CAR.PN ---
CVT Progress Note Subjective/Hospital Course: 06/30/[address] 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 Patient has a wound VAC and will go today to the operating room by Dr. Dejesus to assess the viability of the small intestine based on which patient will have or not have some of the intestine resected If needed I will be available to assist with the vascular portion of the procedure As far as intensive care parameters are concerned patient this point is hemodynamically stable on small dose Levophed and does not appear to be acidotic. Good PO2 FiO2 gradient Patient underwent today exploratory laparotomy by Dr. Dejesus and I came to the room to evaluate the intestine in the blood flow Patient has excellent dopplerable brisk pulse and superior mesenteric artery and even in distal mesentery next to the intestine. SMA is completely open and saw the branches Unfortunately patient has large amount of very ischemic intestine which has not demarcated completely yet so we jointly decided to avoid any resection at this time, place another wound VAC and get a second look tomorrow 07/01/2017 Abdomen remains soft Superior mesenteric artery was clearly patent at the surgical exploration yesterday and the blood flow into the mesentery is currently intact Unfortunately patient has ischemic changes of the small bowel that are beyond salvage in large portions of the small bowel although not completely demarcated yet so I agree with decision by Dr. Dejesus not to resect anything yesterday and do another third look procedure today or tomorrow Nothing further to add from vascular point Objective: Vital Signs Date Time Temp Pulse Resp B/P (MAP) Pulse Ox O2 Delivery O2 Flow Rate FiO2 07/01/17 08:46 100 30 07/01/17 08:46 35 07/01/17 06:00 119 07/01/17 05:23 120 110/75 07/01/17 04:32 100 30 07/01/17 04:00 30 07/01/17 04:00 98.8 128 21 112/77 (89) 100 07/01/17 04:00 126 07/01/17 02:14 128 115/72 07/01/17 02:00 126 07/01/17 01:25 125 92/67 07/01/17 00:19 100 30 07/01/17 00:13 128 112/77 07/01/17 00:00 98.8 128 21 112/77 (89) 100 07/01/17 00:00 30 07/01/17 00:00 128 06/30/17 22:00 158 06/30/17 21:40 129 124/72 06/30/17 20:00 126 06/30/17 20:00 100.1 126 21 117/65 (82) 100 06/30/17 20:00 30 06/30/17 19:33 100 30 06/30/17 18:00 119 06/30/17 17:41 100 30 06/30/17 16:00 98.8 122 22 104/76 (85) 100 06/30/17 16:00 122 06/30/17 16:00 30 06/30/17 14:00 128 06/30/17 12:26 95 100 06/30/17 11:23 100 30 06/30/17 10:00 124 Labs: Laboratory Tests Test 07/01/17 00:18 07/01/17 04:00 Blood Urea Nitrogen 23 MG/DL (7-18) 23 MG/DL (7-18) Creatinine 1.44 MG/DL (0.50-1.00) 1.34 MG/DL (0.50-1.00) Random Glucose 112 MG/DL (74-106) 108 MG/DL (74-106) Calcium Level 7.7 MG/DL (8.5-10.1) 8.0 MG/DL (8.5-10.1) Phosphorus Level 2.8 MG/DL (2.5-4.9) Magnesium Level 2.6 MG/DL (1.5-2.5) Sodium Level 139 MEQ/L (136-145) 138 MEQ/L (136-145) Potassium Level 3.6 MEQ/L (3.5-5.1) 3.4 MEQ/L (3.5-5.1) Chloride Level 106 MEQ/L (98-107) 105 MEQ/L (98-107) Carbon Dioxide Level 23.6 MEQ/L (21.0-32.0) 22.7 MEQ/L (21.0-32.0) Anion Gap 9 MEQ/L (5-15) 10 MEQ/L (5-15) Estimat Glomerular Filtration Rate 45 ML/MIN (>89) 49 ML/MIN (>89) White Blood Count 11.3 TH/MM3 (4.0-11.0) Red Blood Count 4.37 MIL/MM3 (4.00-5.30) Hemoglobin 11.6 GM/DL (11.6-15.3) Hematocrit 35.3 % (35.0-46.0) Mean Corpuscular Volume 80.7 FL (80.0-100.0) Mean Corpuscular Hemoglobin 26.6 PG (27.0-34.0) Mean Corpuscular Hemoglobin Concent 33.0 % (32.0-36.0) Red Cell Distribution Width 14.6 % (11.6-17.2) Platelet Count 189 TH/MM3 (150-450) Mean Platelet Volume 10.1 FL (7.0-11.0) Prothrombin Time 10.1 SEC (9.8-11.6) Prothromb Time International Ratio 1.0 RATIO Activated Partial Thromboplast Time 51.6 SEC (24.3-30.1) Total Protein 5.1 GM/DL (6.4-8.2) Albumin 1.5 GM/DL (3.4-5.0) Alkaline Phosphatase 85 U/L (45-117) Aspartate Amino Transf (AST/SGOT) 36 U/L (15-37) Alanine Aminotransferase (ALT/SGPT) 17 U/L (10-53) Total Bilirubin 1.7 MG/DL (0.2-1.0) Lactic Acid Level 1.5 mmol/L (0.4-2.0) Result Diagram: 07/01/170 07/01/170 Marialuisa Avila MD July 01, 2017 08:56
[2017-07-01] MEDS: DOCUSATE SODIUM 50 MG/SENNA 8.6 MG TAB PO SCH ×2 (09:00→20:05)
[2017-07-01] MEDS: ASPIRIN EC 81 MG TABEC PO SCH (09:00)
[2017-07-01] MEDS: TIOTROPIUM BROMIDE 18 MCG INH INH SCH (09:00)
[2017-07-01] MEDS: CHLORHEXIDINE 0.12% (ORAL KIT) 15 ML CUP MT SCH ×2 (09:25→20:05)
[2017-07-01] MEDS: ARTIFICIAL TEARS OPTH SOLN 15 ML BTL EACH EYE SCH ×3 (09:26→18:00)
[2017-07-01] MEDS: SODIUM CHLORIDE 0.9% FLUSH 10 ML FLUSH IV FLUSH SCH ×2 (09:26→20:05)
[2017-07-01] MEDS: FAMOTIDINE 20 MG/2 ML VIAL IV PUSH SCH ×2 (09:28→20:05)
--- NOTE | 2017-07-01 14:53 | HHI.HCPN ---
Reason for visit a. To assist with evaluation and management of symptoms including: Pain, dyspnea b. To assist medical decision maker(s) with: better understanding of current medical conditions; weighing benefits/burdens of medical treatment options; making medical treatment decisions. Subjective/Interval History Patient seen today to follow up on symptoms of abdominal pain and dyspnea. Patient lightly sedated, arouses to mild stimuli. Winces with auscultation of abdomen. Abdominal binder intact with wound VAC. Has open incision under wound VAC dressing to evaluate Wednesday for any recovery of the bowel. She is sedated on propofol, fentanyl and intermittent Versed for comfort and vent synchrony. She is maintained on a mechanical ventilator and tolerating 30% FiO2 with no noted tachypnea. Respirations are mildly labored when aroused. 1+ generalized edema, no overt signs of congestive heart failure. Known EF of less than 20%. . Family/friend interactions Spoke with son, Zia, who states that family will be coming to visit and unless Fridays evaluation by general surgery shows significant recovery, plan is for withdrawal of ventilator support. He states his brother and sister are in agreement with that plan, however they do wish to have the final surgical evaluation done Wednesday for their peace of mind. . Advance Directives Living Will: Never completed Health Care Surrogate: Never completed Durable Power of Director Of Radiology: Never completed Advance Directive Specifics Date completed: No records available. . Health Care Surrogate(s): No records available. . Documented care wishes: No records available. . Objective Vital Signs Date Time Temp Pulse Resp B/P (MAP) Pulse Ox O2 Delivery O2 Flow Rate FiO2 07/01/17 12:00 98.0 114 19 113/63 (80) 100 07/01/17 12:00 30 07/01/17 12:00 114 07/01/17 10:00 115 07/01/17 08:46 100 30 07/01/17 08:46 07/01/17 08:00 124 07/01/17 08:00 30 07/01/17 08:00 98.8 124 17 106/70 (82) 100 07/01/17 06:00 119 07/01/17 05:23 120 110/75 07/01/17 04:32 100 30 07/01/17 04:00 30 07/01/17 04:00 98.8 128 21 112/77 (89) 100 07/01/17 04:00 126 07/01/17 02:14 128 115/72 07/01/17 02:00 126 07/01/17 01:25 125 92/67 07/01/17 00:19 100 30 07/01/17 00:13 128 112/77 07/01/17 00:00 98.8 128 21 112/77 (89) 100 07/01/17 00:00 30 07/01/17 00:00 128 06/30/17 22:00 158 06/30/17 21:40 129 124/72 06/30/17 20:00 126 06/30/17 20:00 100.1 126 21 117/65 (82) 100 06/30/17 20:00 30 06/30/17 19:33 100 30 06/30/17 18:00 119 06/30/17 17:41 100 30 06/30/17 16:00 98.8 122 22 104/76 (85) 100 06/30/17 16:00 122 06/30/17 16:00 30 Intake & Output 07/01/17 07/01/17 07:00 19:00 Intake Total 370 ml 342 ml Output Total 775 ml Balance -405 ml 342 ml Intake IV Total 350 ml 342 ml Other 20 ml Output Urine Total 525 ml Stool Total 0 ml Gastric Drainage Total 0 ml Drainage Total 250 ml Physical Exam CONSTITUTIONAL/GENERAL: This is an adequately nourished patient, intubated, sedated, in no apparent distress. TUBES/LINES/DRAINS: Right IJ central line,, OG tube, Monreal, right radial line, left wrist PIV. SKIN: No jaundice, rashes, or lesions. No wounds seen anteriorly. Skin temperature appropriate. Not diaphoretic. HEAD: Atraumatic. Normocephalic. EYES: Pupils equal and round and reactive. Opens eyes to voice, mild stimuli. No scleral icterus. No injection or drainage. Fundi not examined. ENT: Hearing grossly normal. Nose without bleeding or purulent drainage. Throat without visible erythema, exudates, masses, or lesions. NECK: Trachea midline. Supple, nontender. No palpable thyroid enlargement or nodularity. CARDIOVASCULAR: S1, S2, tachycardic rate, regular rhythm, unable to auscultate murmur today. RESPIRATORY/CHEST: Symmetric, mildly labored respirations, when awakened. Clear to auscultation. Breath sounds equal bilaterally. No wheezes, rales, or rhonchi. GASTROINTESTINAL: Abdomen soft, tender, nondistended, wound VAC intact with abdominal binder. No auscultated bowel sounds. No guarding. GENITOURINARY: Without palpable bladder distension. Monreal catheter in place. MUSCULOSKELETAL: Extremities without clubbing, cyanosis, or edema. No joint tenderness or effusion noted. No calf tenderness. Feet warm with palpable pulses. LYMPHATICS: No palpable cervical or supraclavicular adenopathy. NEUROLOGICAL: Sedated, arousable, opens eyes to command. PSYCHIATRIC: Mildly anxious when aroused. . Diagnostic Tests Laboratory Laboratory Tests Test 06/28/17 18:00 06/28/17 19:05 06/28/17 19:35 06/28/17 21:00 White Blood Count 20.0 TH/MM3 (4.0-11.0) Red Blood Count 6.04 MIL/MM3 (4.00-5.30) Hemoglobin 16.6 GM/DL (11.6-15.3) Hematocrit 51.1 % (35.0-46.0) Mean Corpuscular Volume 84.6 FL (80.0-100.0) Mean Corpuscular Hemoglobin 27.4 PG (27.0-34.0) Mean Corpuscular Hemoglobin Concent 32.4 % (32.0-36.0) Red Cell Distribution Width 15.0 % (11.6-17.2) Platelet Count 259 TH/MM3 (150-450) Mean Platelet Volume 9.5 FL (7.0-11.0) Neutrophils (%) (Auto) 89.7 % (16.0-70.0) Lymphocytes (%) (Auto) 3.3 % (9.0-44.0) Monocytes (%) (Auto) 6.9 % (0.0-8.0) Eosinophils (%) (Auto) 0.0 % (0.0-4.0) Basophils (%) (Auto) 0.1 % (0.0-2.0) Neutrophils # (Auto) 18.0 TH/MM3 (1.8-7.7) Lymphocytes # (Auto) 0.7 TH/MM3 (1.0-4.8) Monocytes # (Auto) 1.4 TH/MM3 (0-0.9) Eosinophils # (Auto) 0.0 TH/MM3 (0-0.4) Basophils # (Auto) 0.0 TH/MM3 (0-0.2) CBC Comment DIFF FINAL Differential Comment Blood Urea Nitrogen 12 MG/DL (7-18) Creatinine 0.80 MG/DL (0.50-1.00) Random Glucose 99 MG/DL (74-106) Total Protein 6.0 GM/DL (6.4-8.2) Albumin 2.4 GM/DL (3.4-5.0) Calcium Level 6.8 MG/DL (8.5-10.1) Alkaline Phosphatase 88 U/L (45-117) Aspartate Amino Transf (AST/SGOT) 67 U/L (15-37) Alanine Aminotransferase (ALT/SGPT) 27 U/L (10-53) Total Bilirubin 0.8 MG/DL (0.2-1.0) Sodium Level 144 MEQ/L (136-145) Potassium Level 3.5 MEQ/L (3.5-5.1) Chloride Level 114 MEQ/L (98-107) Carbon Dioxide Level 16.8 MEQ/L (21.0-32.0) Anion Gap 13 MEQ/L (5-15) Estimat Glomerular Filtration Rate 89 ML/MIN (>89) Protein Corrected Calcium 7.4 MG/DL (8.5-10.1) Lipase 64 U/L (73-393) Prothrombin Time 12.7 SEC (9.8-11.6) Prothromb Time International Ratio 1.3 RATIO Activated Partial Thromboplast Time 21.9 SEC (24.3-30.1) Urine Color YELLOW (YELLW/STRAW) Urine Turbidity HAZY (CLEAR) Urine pH 5.0 (5.0-8.5) Urine Specific [place] 1.022 (1.002-1.035) Urine Protein 30 mg/dL (NEG-TRACE) Urine Glucose (UA) NEG mg/dL (NEG) Urine Ketones NEG mg/dL (NEG) Urine Occult Blood TRACE (NEG) Urine Nitrite NEG (NEG) Urine Bilirubin NEG (NEG) Urine Urobilinogen LESS THAN 2.0 MG/DL (LESS Urine Leukocyte Esterase NEG (NEG) Urine RBC LESS THAN 1 /hpf (0-3) Urine WBC 1 /hpf (0-5) Urine Squamous Epithelial Cells 4 /hpf (0-5) Urine Bacteria OCC /hpf (NONE) Urine Hyaline Casts 3 /lpf (RARE) Urine Mucus FEW /lpf (OCC) Microscopic Urinalysis Comment CULT NOT INDICATED Lactic Acid Level 4.2 mmol/L (0.4-2.0) Test 06/29/17 01:30 06/29/17 01:45 06/29/17 01:57 06/29/17 05:10 Nasal Screen MRSA (PCR) MRSA NOT DETECTED (NOT White Blood Count 13.1 TH/MM3 (4.0-11.0) 13.1 TH/MM3 (4.0-11.0) Red Blood Count 5.18 MIL/MM3 (4.00-5.30) 5.24 MIL/MM3 (4.00-5.30) Hemoglobin 14.1 GM/DL (11.6-15.3) 14.2 GM/DL (11.6-15.3) Hematocrit 42.6 % (35.0-46.0) 43.1 % (35.0-46.0) Mean Corpuscular Volume 82.3 FL (80.0-100.0) 82.2 FL (80.0-100.0) Mean Corpuscular Hemoglobin 27.2 PG (27.0-34.0) 27.2 PG (27.0-34.0) Mean Corpuscular Hemoglobin Concent 33.0 % (32.0-36.0) 33.0 % (32.0-36.0) Red Cell Distribution Width 14.2 % (11.6-17.2) 14.3 % (11.6-17.2) Platelet Count 234 TH/MM3 (150-450) 236 TH/MM3 (150-450) Mean Platelet Volume 8.9 FL (7.0-11.0) 9.4 FL (7.0-11.0) Prothrombin Time 14.4 SEC (9.8-11.6) Prothromb Time International Ratio 1.4 RATIO Activated Partial Thromboplast Time 103.5 SEC (24.3-30.1) 46.3 SEC (24.3-30.1) Blood Urea Nitrogen 17 MG/DL (7-18) Creatinine 0.97 MG/DL (0.50-1.00) Random Glucose 119 MG/DL (74-106) Total Protein 5.8 GM/DL (6.4-8.2) Albumin 2.3 GM/DL (3.4-5.0) Calcium Level 7.1 MG/DL (8.5-10.1) Phosphorus Level 3.2 MG/DL (2.5-4.9) Magnesium Level 2.2 MG/DL (1.5-2.5) Alkaline Phosphatase 83 U/L (45-117) Aspartate Amino Transf (AST/SGOT) 109 U/L (15-37) Alanine Aminotransferase (ALT/SGPT) 28 U/L (10-53) Total Bilirubin 1.2 MG/DL (0.2-1.0) Sodium Level 142 MEQ/L (136-145) Potassium Level 3.6 MEQ/L (3.5-5.1) Chloride Level 105 MEQ/L (98-107) Carbon Dioxide Level 25.2 MEQ/L (21.0-32.0) Anion Gap 12 MEQ/L (5-15) Estimat Glomerular Filtration Rate 71 ML/MIN (>89) Lactic Acid Level 2.8 mmol/L (0.4-2.0) Protein Corrected Calcium 7.8 MG/DL (8.5-10.1) Blood Gas Puncture Site ART LINE Blood Gas Patient Temperature 98.6 Blood Gas HCO3 22 mmol/L (22-26) Blood Gas Base Excess -1.9 mmol/L (-2-2) Blood Gas Oxygen Saturation 97 % (90-100) Arterial Blood pH 7.43 (7.380-7.420) Arterial Blood Partial Pressure CO2 33 mmHg (38-42) Arterial Blood Partial Pressure O2 203 mmHg (61-120) Arterial Blood Oxygen Content 20.3 Vol % (12.0-20.0) Arterial Blood Carboxyhemoglobin 1.5 % (0-4) Arterial Blood Methemoglobin 1.0 % (0-2) Blood Gas Hemoglobin 14.6 G/DL (12.0-16.0) Oxygen Delivery Device VENTILATOR Blood Gas Ventilator Setting PRVC/AC Blood Gas Inspired Oxygen 50 % Neutrophils (%) (Auto) 82.9 % (16.0-70.0) Lymphocytes (%) (Auto) 7.0 % (9.0-44.0) Monocytes (%) (Auto) 9.9 % (0.0-8.0) Eosinophils (%) (Auto) 0.0 % (0.0-4.0) Basophils (%) (Auto) 0.2 % (0.0-2.0) Neutrophils # (Auto) 10.8 TH/MM3 (1.8-7.7) Lymphocytes # (Auto) 0.9 TH/MM3 (1.0-4.8) Monocytes # (Auto) 1.3 TH/MM3 (0-0.9) Eosinophils # (Auto) 0.0 TH/MM3 (0-0.4) Basophils # (Auto) 0.0 TH/MM3 (0-0.2) CBC Comment AUTO DIFF Differential Total Cells Counted 100 Neutrophils % (Manual) 49 % (16-70) Band Neutrophils % 29 % (0-6) Lymphocytes % 11 % (9-44) Monocytes % 3 % (0-8) Neutrophils # (Manual) 11.3 TH/MM3 (1.8-7.7) Metamyelocytes 7 % (0-1) Myelocytes 1 % (0-0) Differential Comment FINAL DIFF MANUAL Toxic Vacuolation PRESENT (NONE SEEN) Platelet Estimate NORMAL (NORMAL) Platelet Morphology Comment NORMAL (NORMAL) Test 06/29/17 07:15 06/29/17 10:45 06/29/17 15:45 06/29/17 17:00 Lactic Acid Level 3.6 mmol/L (0.4-2.0) 3.5 mmol/L (0.4-2.0) 3.5 mmol/L (0.4-2.0) Activated Partial Thromboplast Time 39.7 SEC (24.3-30.1) 47.8 SEC (24.3-30.1) Test 06/29/17 22:55 06/30/17 04:30 07/01/17 00:18 07/01/17 04:00 Activated Partial Thromboplast Time 58.4 SEC (24.3-30.1) 57.4 SEC (24.3-30.1) 51.6 SEC (24.3-30.1) Lactic Acid Level 2.8 mmol/L (0.4-2.0) 2.8 mmol/L (0.4-2.0) 1.5 mmol/L (0.4-2.0) White Blood Count 12.4 TH/MM3 (4.0-11.0) 11.3 TH/MM3 (4.0-11.0) Red Blood Count 4.78 MIL/MM3 (4.00-5.30) 4.37 MIL/MM3 (4.00-5.30) Hemoglobin 12.8 GM/DL (11.6-15.3) 11.6 GM/DL (11.6-15.3) Hematocrit 39.3 % (35.0-46.0) 35.3 % (35.0-46.0) Mean Corpuscular Volume 82.2 FL (80.0-100.0) 80.7 FL (80.0-100.0) Mean Corpuscular Hemoglobin 26.7 PG (27.0-34.0) 26.6 PG (27.0-34.0) Mean Corpuscular Hemoglobin Concent 32.5 % (32.0-36.0) 33.0 % (32.0-36.0) Red Cell Distribution Width 14.5 % (11.6-17.2) 14.6 % (11.6-17.2) Platelet Count 179 TH/MM3 (150-450) 189 TH/MM3 (150-450) Mean Platelet Volume 9.6 FL (7.0-11.0) 10.1 FL (7.0-11.0) Prothrombin Time 11.5 SEC (9.8-11.6) 10.1 SEC (9.8-11.6) Prothromb Time International Ratio 1.1 RATIO 1.0 RATIO Blood Urea Nitrogen 19 MG/DL (7-18) 23 MG/DL (7-18) 23 MG/DL (7-18) Creatinine 1.33 MG/DL (0.50-1.00) 1.44 MG/DL (0.50-1.00) 1.34 MG/DL (0.50-1.00) Random Glucose 121 MG/DL (74-106) 112 MG/DL (74-106) 108 MG/DL (74-106) Total Protein 5.3 GM/DL (6.4-8.2) 5.1 GM/DL (6.4-8.2) Albumin 2.1 GM/DL (3.4-5.0) 1.5 GM/DL (3.4-5.0) Calcium Level 8.2 MG/DL (8.5-10.1) 7.7 MG/DL (8.5-10.1) 8.0 MG/DL (8.5-10.1) Magnesium Level 2.4 MG/DL (1.5-2.5) 2.6 MG/DL (1.5-2.5) Alkaline Phosphatase 71 U/L (45-117) 85 U/L (45-117) Aspartate Amino Transf (AST/SGOT) 48 U/L (15-37) 36 U/L (15-37) Alanine Aminotransferase (ALT/SGPT) 17 U/L (10-53) 17 U/L (10-53) Total Bilirubin 2.0 MG/DL (0.2-1.0) 1.7 MG/DL (0.2-1.0) Sodium Level 140 MEQ/L (136-145) 139 MEQ/L (136-145) 138 MEQ/L (136-145) Potassium Level 3.0 MEQ/L (3.5-5.1) 3.6 MEQ/L (3.5-5.1) 3.4 MEQ/L (3.5-5.1) Chloride Level 104 MEQ/L (98-107) 106 MEQ/L (98-107) 105 MEQ/L (98-107) Carbon Dioxide Level 23.7 MEQ/L (21.0-32.0) 23.6 MEQ/L (21.0-32.0) 22.7 MEQ/L (21.0-32.0) Anion Gap 12 MEQ/L (5-15) 9 MEQ/L (5-15) 10 MEQ/L (5-15) Estimat Glomerular Filtration Rate 49 ML/MIN (>89) 45 ML/MIN (>89) 49 ML/MIN (>89) Phosphorus Level 2.8 MG/DL (2.5-4.9) Result Diagram: 07/01/17 0400 07/01/17 0400 Microbiology Microbiology Date/Time Source Procedure Growth Status 06/28/17 21:05 Blood Peripheral Aerobic Blood Culture - Preliminary NO GROWTH IN 3 DAYS Resulted 06/28/17 21:05 Blood Peripheral Anaerobic Blood Culture - Preliminary NO GROWTH IN 3 DAYS Resulted 06/28/17 20:50 Blood Peripheral Aerobic Blood Culture - Preliminary NO GROWTH IN 3 DAYS Resulted 06/28/17 20:50 Blood Peripheral Anaerobic Blood Culture - Preliminary NO GROWTH IN 3 DAYS Resulted Procedures 06/29: Exploratory laparotomy with application of VAC device 06/29: Exploratory laparotomy with lysis of adhesions, SMA embolectomy with patch angioplasty using bovine pericardium. 06/30: Exploratory laparotomy to evaluate recovery of small bowel. . 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 He also has a brother Jose Antonio Edward and a sister Moises Rao. Spiritual: Milk Pasteurizer available. Legal: She reportedly has 3 children who would be her legal decision makers unless advanced directive paperwork can be located. Ethical issues impacting care: None noted. . Important Contacts Son: Zia Rao Daughter: Elisa Valentin (Jalen) [phone] or [phone] (Elisa's ) Son: Jose Antonio Edward [phone] Prognosis This is a 61-year-old -Tajik female with acute superior mesenteric artery thrombosis, now status post embolectomy with findings of ischemic bowel throughout most of the small intestine during exploratory laparotomy. Once embolectomy was performed, it was felt to be the patient's best chance at survival to allow a short time for reperfusion and then reevaluate to see if there had been any bowel recovery. She is at high risk for complications and per surgical notes has a high percentage of mortality from the ischemic event and, he further opines that she would not survive with a total small bowel resection. Her prognosis appears poor and she is at elevated risk of continued complications and decline. . Code Status: Full Code Plan PLAN: Legal decision maker:, Not capacitated for decision-making purposes. Pending receipt of advanced directive paperwork, per [place] statutes the legal decision makers would be the majority of her adult children, Zia, Jose Antonio and Shavonnya. Patient is currently intubated and sedated. Goals: Aggressive at this time CODE STATUS: FULL CODE SYMPTOMS: * Pain: She had debilitating, exquisite pain presurgery and now post embolectomy remains with some discomfort, especially with abdominal palpation. She is at risk for continued pain due to bedbound status, invasive lines, open surgical incision, wound VAC. She has morphine 2 mg, q2h available. Last dose given at 20: 25 06/29. Sedation has been increased since yesterday to allow better vent synchrony. Patient exhibits no signs or symptoms of discomfort at rest. Does wince and grimace with light abdominal palpation or auscultation. * Dyspnea: Multifactorial to include pain, history of COPD and history of chronic systolic heart failure with EF less than, with some trace-mild tricuspid regurgitation noted 20%. She is currently receiving ventilator support at 35 % FiO2 and is tolerating with some tachypnea. In addition to the as needed morphine, she also has DuoNeb both scheduled and PRN. Given her fragile hemodynamic status, she is currently not a candidate for optimizing cardiac therapy with beta-blockers, MONALISA eyes or diuretics. Inotropic support was attempted family considering with milrinone, but patient became developed worsening hypotension and so that had to be discontinued. No further recommendations at this time. Compassionate withdrawal on Wednesday once family has had time to visit and last surgical evaluation has been completed. Palliative care will continue to follow the patient during hospital course as condition evolves, to assist patient/decision-maker with understanding of their medical conditions, weighing benefits/burdens of treatment options, for clarification of goals of treatment. Additionally will assist with any symptoms of palliative concern. . Attestation To help prompt me to consider important information that might be impacting today's encounter and assessment, information from prior notes written by myself or my colleagues may have been "brought forward" into today's note. My signature on this note, however, is an attestation that I personally performed the exam, history, and/or decision-making noted today, and, unless otherwise indicated, the interactions with patient, family, and staff as well as the review of records all occurred today. I also attest that the listed assessment and stated plan reflect my best clinical judgment today based on the combination of historical information, prior notes, and today's exam/ interactions. When time spent is documented, it refers only to time spent today by the signer, or if indicated, combined time spent today by collaborating physician/nurse practitioner. . Shahnaz Romero July 01, 2017 2:53 pm
--- NOTE | 2017-07-01 14:53 | HHI.PR ---
cc: Chalino Dejesus MD Subjective Subjective Notes DAILY PROGRESS NOTE FOR SURGICAL ATTENDING, DR. CHALINO DEJESUS Intubated/Sedated Objective Vitals/I&O Vital Signs Date Time Temp Pulse Resp B/P (MAP) Pulse Ox O2 Delivery O2 Flow Rate FiO2 07/01/17 12:00 98.0 114 19 113/63 (80) 100 07/01/17 12:00 30 06/28/17 22:12 Nasal Cannula 2.00 Labs Laboratory Tests Test 07/01/17 00:18 07/01/17 04:00 Blood Urea Nitrogen 23 23 Creatinine 1.44 1.34 Random Glucose 112 108 Calcium Level 7.7 8.0 Phosphorus Level 2.8 Magnesium Level 2.6 Sodium Level 139 138 Potassium Level 3.6 3.4 Chloride Level 106 105 Carbon Dioxide Level 23.6 22.7 Anion Gap 9 10 Estimat Glomerular Filtration Rate 45 49 White Blood Count 11.3 Red Blood Count 4.37 Hemoglobin 11.6 Hematocrit 35.3 Mean Corpuscular Volume 80.7 Mean Corpuscular Hemoglobin 26.6 Mean Corpuscular Hemoglobin Concent 33.0 Red Cell Distribution Width 14.6 Platelet Count 189 Mean Platelet Volume 10.1 Prothrombin Time 10.1 Prothromb Time International Ratio 1.0 Activated Partial Thromboplast Time 51.6 Total Protein 5.1 Albumin 1.5 Alkaline Phosphatase 85 Aspartate Amino Transf (AST/SGOT) 36 Alanine Aminotransferase (ALT/SGPT) 17 Total Bilirubin 1.7 Lactic Acid Level 1.5 Date/Time Source Procedure Growth Status 06/28/17 21:05 Blood Peripheral Aerobic Blood Culture - Preliminary NO GROWTH IN 3 DAYS Resulted 06/28/17 21:05 Blood Peripheral Anaerobic Blood Culture - Preliminary NO GROWTH IN 3 DAYS Resulted Radiology Last 72 hours Impressions Chest X-Ray 06/28/17 0000 Signed Impressions: Service Date/Time: Wednesday, June 28, 2017 19:20 - CONCLUSION: /Improvement in aeration Justo Sigala MD Abdomen/Pelvis CT 06/28/17 0000 Signed Impressions: Service Date/Time: Wednesday, June 28, 2017 20:18 - CONCLUSION: SMA occlusion with likely bowel infarction and findings as described above Justo Sigala MD Abdomen X-Ray 06/28/17 0000 Signed Impressions: Service Date/Time: Wednesday, June 28, 2017 18:43 - CONCLUSION: Mild nonspecific gaseous distention of bowel Justo Sigala MD Cardiovascular: Regular Lungs: Clear Abdomen: Other (Wound Vac in place with good seal ) Extremities: Other (moderate generaized edema ) A/P Assessment and Plan 61 year old female s/p ex-lap and SMA embolectomy with Dr. Sommer; POD1 Wound Vac change -Findings of continued severe ischemic bowel in OR yesterday---discussed findings with son and Palliative Care MOLD TOOLER yesterday -Will plan for OR tomorrow for Wound Vac change unless family decides to withdrawal care -NPO -Continues to requiring pressor support -UOP marginal -Vent per [facility] -Palliative Care has been consulted ---family had decide on alternative code and possible withdrawal tomorrow ---will follow up on family's wishes Zia, who states that family will be coming to visit and unless Fridays evaluation by general surgery shows significant recovery, plan is for withdrawal of ventilator support. He states his brother and sister are in agreement with that plan, however they do wish to have the final surgical evaluation done Wednesday for their peace of mind. Attending Statement NOTE FOR SURGICAL ATTENDING, DR. CHALINO DEJESUS Discussed with Dr. Wallace critical care Discussed with Dr. Johnson vascular surgery covering for Dr. Sommer I agree with above assessment and plan. The exam, history, and the medical decision-making described in the above note were completed with the assistance of the mid-level provider. I reviewed and agree with the findings presented. I attest that I had a [id number] encounter with the patient on the same day, and personally performed and documented my assessment and findings in the medical record. The following services were provided during this hospital visit: Chart data review, vital sign assessments/reviewing monitor data Review of consultations notes if present. Medication orders/review and/or management Ordering and/or reviewing lab tests Ordering and/or interpreting/reviewing x-rays and/or diagnostic studies Care of the patient and discussion of the patient with the care team Documentation time To help prompt me to consider important information that might be impacting today's encounter and assessment, Information from prior notes written by myself or my colleagues may have been "brought forward/copy and pasted" into today's note. Aria Bell/Confectionery [employer]er EDUCATION PARAPROFESSIONAL July 01, 2017 14:53 Chalino Dejesus MD July 01, 2017 17:09
[2017-07-01] MEDS: NOREPINEPHRINE-DEXTROSE DRIP 250 ML IV PRN (16:50)
[2017-07-02] VITALS (14 sets, daily range): BP systolic 94–132; BP diastolic 56–88; PULSE 85–120; RESP 13–14; TEMP 98.2–99.1; O2SAT 100
[2017-07-02] MEDS ORDERED: ROCURONIUM INJ 50 MG/5 ML SYRINGE IV PUSH ONE (01:43)
[2017-07-02] MEDS ORDERED: LACTATED RINGER'S 1000 ML INJ 1,000 ML IV ONE (01:43)
[2017-07-02] MEDS: LACTATED RINGER'S 1000 ML INJ 1,000 ML IV SCH ×3 (03:08→12:59)
[2017-07-02] MEDS: CHLORHEXIDINE GLUCONATE 2 % 1 PACK (2 CLOTHS) TOP SCH (03:09)
[2017-07-02] MEDS: PIPERACIL-TAZO 4.5 GM PREMIX 100 ML IV SCH ×3 (03:35→14:00)
[2017-07-02] MEDS: RESP: ALBUTEROL 2.5 MG/IPRATROPIUM 0.5 MG NEB (SCH) INH ×3 (03:41→15:38)
[2017-07-02 04:39] LABS: HEMATOCRIT 29.2 % (35.0-46.0); HEMOGLOBIN 9.7 GM/DL (11.6-15.3); MEAN CORPUSCULAR HEMOGLOBIN 26.9 PG (27.0-34.0); MEAN CORPUSCULAR HGB CONC 33.2 % (32.0-36.0); MEAN PLATELET VOLUME 9.5 FL (7.0-11.0); PLATELET COUNT 195 TH/MM3 (150-450); RED CELL DISTRIBUTION WIDTH 14.8 % (11.6-17.2); WHITE BLOOD COUNT 12.8 TH/MM3 (4.0-11.0)
[2017-07-02 04:57] LABS: PROTHROMBIN TIME - PATIENT 9.8 SEC (9.8-11.6)
[2017-07-02 05:09] LABS: ALBUMIN 1.2 GM/DL (3.4-5.0); ALT (GPT) 12 U/L (10-53); AST (GOT) 32 U/L (15-37); BICARBONATE 26.4 MEQ/L (21.0-32.0); BLOOD UREA NITROGEN 15 MG/DL (7-18); CALCIUM 7.5 MG/DL (8.5-10.1); CHLORIDE 105 MEQ/L (98-107); CREATININE 0.78 MG/DL (0.50-1.00); GLOMERULAR FILTRATION RATE 91 ML/MIN (>89); GLUCOSE,RANDOM 102 MG/DL (74-106); SODIUM (NA) 140 MEQ/L (136-145)
[2017-07-02 05:12] LABS: ALKALINE PHOSPHATASE 78 U/L (45-117); TOTAL BILIRUBIN ADULT 1.4 MG/DL (0.2-1.0); TOTAL PROTEIN 4.7 GM/DL (6.4-8.2)
[2017-07-02] MEDS: NOREPINEPHRINE-DEXTROSE DRIP 250 ML IV PRN ×2 (06:13→15:24)
[2017-07-02] MEDS: HEPARIN-D5W 25,000 U/250 ML 250 ML IV PRN (07:10)
[2017-07-02] MEDS ORDERED: HEPARIN SODIUM - IV 10,000 UNITS/10 ML VIAL IV PUSH PRN (07:30)
[2017-07-02] MEDS: PROPOFOL 1000 MG/100 ML INJ 100 ML IV PRN ×2 (08:27)
[2017-07-02] MEDS: FAMOTIDINE 20 MG/2 ML VIAL IV PUSH SCH (08:28)
[2017-07-02] MEDS: fentaNYL DRIP 250 ML IV PRN (08:28)
[2017-07-02] MEDS: CHLORHEXIDINE 0.12% (ORAL KIT) 15 ML CUP MT SCH (08:39)
[2017-07-02] MEDS: DOCUSATE SODIUM 50 MG/SENNA 8.6 MG TAB PO SCH (08:40)
[2017-07-02] MEDS: ASPIRIN EC 81 MG TABEC PO SCH (08:40)
[2017-07-02] MEDS: TIOTROPIUM BROMIDE 18 MCG INH INH SCH (08:40)
[2017-07-02] MEDS: SODIUM CHLORIDE 0.9% FLUSH 10 ML FLUSH IV FLUSH SCH (08:40)
[2017-07-02] MEDS: ARTIFICIAL TEARS OPTH SOLN 15 ML BTL EACH EYE SCH ×2 (08:40→13:00)
--- NOTE | 2017-07-02 09:28 | HHI.CCPN ---
Subjective Remarks/Hospital Course Hospital Course: 61-year-old female presents to the emergency department for evaluation of generalized abdominal pain. Patient was seen last night for the same. She states the pain has not improved. She states she has not had pain like this before. Current pain is 10/10, sharp throughout the abdomen. She reports swelling, but no fevers. She denies any chest pain. She denies any vomiting or diarrhea. Patient reports history of appendectomy, but no other abdominal surgeries. Patient was seen last night had labs, CT, chest x-ray completed. She was discharged with no emergent abnormality was found. Patient denies exacerbating or alleviating factors. 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 The patient was emergently taken to operating room for thrombectomy by a vascular surgeon. subjective: 06/29: remains intubated, sedated, critically ill, on vasopressors. overnight taken to OR for ex-lap and SMA embolectomy. at the conclusion of the case, bowel continued to appear ischemic. this AM, on vasopressin and phenylephrine. CVP is 1. uop has been adequate but marginal. lactate downtrending. LFTs slightly uptrended, unclear if early shock liver or ischemia from clot. 06/30: no improvements. remains in shock on vasopressors. lactate has not cleared , which would portend poor prognosis in shock. plan to go back to OR to evaluate bowel viability today. Echo yesterday with EF < 20%, global. did attempt trial of milrinone yesterday for ~2 hours with severe hypotension which prevented its further use. Cr increased to 1.3 today. LFTs slightly lower. 07/01: taken back to OR yesterday with significant infarcted bowel. replaced wound vac on with plan to wait until Wednesday to see if areas of viable bowel will better demarcate. remains on levophed. family made patient DNR yesterday. overall prognosis quite poor. 07/02: lactate has cleared. back to OR today to eval if any viable bowel left. remains on vasopressors. no other significant changes. Objective Vital Signs Date Time Temp Pulse Resp B/P (MAP) Pulse Ox O2 Delivery O2 Flow Rate FiO2 07/02/17 08:00 98.9 87 13 132/62 (85) 100 07/02/17 08:00 30 06/28/17 22:12 Nasal Cannula 2.00 Intake and Output 07/02/17 07/02/17 07/03/17 08:00 16:00 00:00 Intake Total 2531 ml Output Total 1300 ml Balance 1231 ml Result Diagram: 07/02/17 0400 07/02/17 0400 Imaging Last 24 hours Impressions Chest X-Ray 06/28/17 0000 Signed Impressions: Service Date/Time: Wednesday, June 28, 2017 19:20 - CONCLUSION: /Improvement in aeration Justo Sigala MD Abdomen/Pelvis CT 06/28/17 0000 Signed Impressions: Service Date/Time: Wednesday, June 28, 2017 20:18 - CONCLUSION: 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 HEENT: nc. at. perrl. mucous membranes moist. NECK: no jvd. trachea midline. CVL in place, site clean dry intact. CHEST: PRVC, 30% fio2. full mechanical support. PEEP 5. CV: normal rate, regular rhythm. sinus. frequent PACs. Abd: wound vac in place. soft, nondistended. no guarding. EXTR: distal pulses 2+. no peripheral edema. NEURO: RASS -2. intubated, sedated. follows commands. A/P Assessment and Plan Assessment: 61yF POD 4 s/p ex-lap and SMA embolectomy for SMA occlusion with persistence of her Bowel Ischemia. POD 2 s/p re-exploration, washout. Remains very critically ill. continue levophed for map > 65 mmhg. back to OR today. continue supportive care. guarded prognosis at best. Plan by Systems: Neuro: Acute metabolic Encephalopathy - RASS goal -2 - propofol, fentanyl for goal RASS - no sedation vacation with open abdomen and while critically ill. Resp: Acute hypoxic and hypercarbic respiratory failure COPD - no weaning of mechanical ventilation until shock improves - wean fio2 for goal spo2 > 90% - vent bundle, hob elevated, nebs - spiriva. CV: Septic Shock- persistent. Acute intravascular volume depletion - continue norepinephrine for goal map > 65 mmHg - LR mivf @ 125 cc/hr - q1h uop - continue to trend CVP Renal: Acute kidney injury- resolving. - continue rose - q1h uop - renal injury secondary to shock FEN/GI: Acute SMA thrombosis/occlusion Acute mesenteric ischemia s/p exploratory laparotomy with SMA embolectomy 06/28 s/p washout and re-exploration with large areas of infarcted bowel 06/30 Lactic Acidosis- slowly resolving. Acute intravascular volume depletion Acute protein calorie malnutrition- severe - NPO while in shock with bowel ischemia - trend lactates - LR @ 125 cc/hr - maintain adequate perfusion pressure - continue heparin drip - TPN in the near future if any viable bowel. - anticipate prolonged ileus. - NGT to suction. Heme/ID: Mesenteric thrombus Intra-abdominal sepsis - continue zosyn. would continue zosyn for at least 4 days after definitive operation. - f/u culture data: NGTD - continue heparin drip Endo: Hyperglycemia of Critical Illness - SSI Prophylaxis: GI: - pepcid iv DVT: - SCDs - heparin drip Lines: - 06/28: TLC - 06/28: art line - Rose must keep all lines today. critically ill. Dispo: remain in ICU. very critically ill. Jose Antonio Rodriguez MD July 02, 2017 09:28
[2017-07-02] MEDS ORDERED: ACETAMINOPHEN 1000 MG/100 ML 0 ML IV ONE (09:36)
[2017-07-02] MEDS ORDERED: HYDROmorphone HCL PF 2 MG/ML VIAL ONE (09:36)
[2017-07-02] MEDS ORDERED: KETAMINE HCL 50 MG/5 ML SYRINGE ONE (09:36)
[2017-07-02] MEDS ORDERED: ceFAZolin INJ 1,000 MG VIAL ONE (10:23)
[2017-07-02] MEDS ORDERED: BUPIVACAINE/EPINEPHRINE 0.5% PF 10 ML VIAL ONE (10:26)
--- NOTE | 2017-07-02 11:56 | EKG ---
Date Performed: 06/30/2017 Time Performed: 22:24:32 PTAGE: 61 years EKG: Sinus tachycardia Lateral T wave changes are nonspecific Borderline ECG NO PREVIOUS TRACING DOCTOR: Priyank Cisneros Interpretating Date/Time 07/02/2017 11:50:23
--- NOTE | 2017-07-02 14:43 | HHI.HCPN ---
Reason for visit a. To assist with evaluation and management of symptoms including: Pain, dyspnea b. To assist medical decision maker(s) with: better understanding of current medical conditions; weighing benefits/burdens of medical treatment options; making medical treatment decisions. Subjective/Interval History Patient seen today to follow up on symptoms of abdominal pain and dyspnea. Underwent another exploratory lap this morning to evaluate any possible small bowel recovery. Per report from the OR team, bowel continued to worsen with larger areas blackening and continued ischemia. She received paralytics and fentanyl during surgery. She is at risk for abdominal pain due to open incision , repeated laparotomy, ischemic bowel. Make . Advance Directives Living Will: Never completed Health Care Surrogate: Never completed Durable Power of Technician Preventative Medicine: Never completed Advance Directive Specifics Date completed: No records available. . Health Care Surrogate(s): No records available. . Documented care wishes: No records available. . Objective Vital Signs Date Time Temp Pulse Resp B/P (MAP) Pulse Ox O2 Delivery O2 Flow Rate FiO2 07/02/17 08:00 98.9 87 13 132/62 (85) 100 07/02/17 08:00 30 07/02/17 07:38 100 30 07/02/17 06:13 90 118/57 07/02/17 06:00 92 07/02/17 04:00 99.1 92 13 94/60 (71) 100 07/02/17 04:00 30 07/02/17 04:00 92 07/02/17 03:36 100 30 07/02/17 02:00 104 07/02/17 01:01 100 30 07/02/17 00:00 111 07/02/17 00:00 30 07/02/17 00:00 98.6 111 14 100/88 (92) 100 07/01/17 22:00 96 07/01/17 20:21 100 30 07/01/17 20:00 115 07/01/17 20:00 98.9 115 16 92/65 (74) 100 07/01/17 20:00 30 07/01/17 18:00 110 07/01/17 16:50 121 85/57 07/01/17 16:40 100 30 07/01/17 16:00 107 07/01/17 16:00 98.5 107 14 87/62 (70) 100 5/17/18 16:00 30 Intake & Output 07/02/17 07/02/17 07:00 19:00 Intake Total 1550 ml 2231 ml Output Total 1300 ml 10 ml Balance 250 ml 2221 ml Intake IV Total 1550 ml 2181 ml Other 50 ml Output Urine Total 750 ml Gastric Drainage Total 350 ml Drainage Total 200 ml Estimated Blood Loss 10 ml # Bowel Movements 0 Physical Exam CONSTITUTIONAL/GENERAL: This is an adequately nourished patient, intubated, sedated, in no apparent distress. TUBES/LINES/DRAINS: Right IJ central line,, OG tube, Monreal, right radial line, left wrist PIV. SKIN: No jaundice, rashes, or lesions. No wounds seen anteriorly. Skin temperature appropriate. Not diaphoretic. HEAD: Atraumatic. Normocephalic. EYES: Pupils equal and round and reactive. Opens eyes to voice, mild stimuli. No scleral icterus. No injection or drainage. Fundi not examined. ENT: Hearing grossly normal. Nose without bleeding or purulent drainage. Throat without visible erythema, exudates, masses, or lesions. NECK: Trachea midline. Supple, nontender. No palpable thyroid enlargement or nodularity. CARDIOVASCULAR: S1, S2, tachycardic rate, regular rhythm, unable to auscultate murmur today. RESPIRATORY/CHEST: Symmetric, mildly labored respirations, when awakened. Clear to auscultation. Breath sounds equal bilaterally. No wheezes, rales, or rhonchi. GASTROINTESTINAL: Abdomen soft, tender, nondistended, wound VAC intact with abdominal binder. No auscultated bowel sounds. No guarding. GENITOURINARY: Without palpable bladder distension. Monreal catheter in place. MUSCULOSKELETAL: Extremities without clubbing, cyanosis, or edema. No joint tenderness or effusion noted. No calf tenderness. Feet warm with palpable pulses. LYMPHATICS: No palpable cervical or supraclavicular adenopathy. NEUROLOGICAL: Sedated, arousable, opens eyes to command. PSYCHIATRIC: Mildly anxious when aroused. . Diagnostic Tests Laboratory Laboratory Tests Test 06/29/17 15:45 06/29/17 17:00 06/29/17 22:55 06/30/17 04:30 Lactic Acid Level 3.5 mmol/L (0.4-2.0) 2.8 mmol/L (0.4-2.0) 2.8 mmol/L (0.4-2.0) Activated Partial Thromboplast Time 47.8 SEC (24.3-30.1) 58.4 SEC (24.3-30.1) 57.4 SEC (24.3-30.1) White Blood Count 12.4 TH/MM3 (4.0-11.0) Red Blood Count 4.78 MIL/MM3 (4.00-5.30) Hemoglobin 12.8 GM/DL (11.6-15.3) Hematocrit 39.3 % (35.0-46.0) Mean Corpuscular Volume 82.2 FL (80.0-100.0) Mean Corpuscular Hemoglobin 26.7 PG (27.0-34.0) Mean Corpuscular Hemoglobin Concent 32.5 % (32.0-36.0) Red Cell Distribution Width 14.5 % (11.6-17.2) Platelet Count 179 TH/MM3 (150-450) Mean Platelet Volume 9.6 FL (7.0-11.0) Prothrombin Time 11.5 SEC (9.8-11.6) Prothromb Time International Ratio 1.1 RATIO Blood Urea Nitrogen 19 MG/DL (7-18) Creatinine 1.33 MG/DL (0.50-1.00) Random Glucose 121 MG/DL (74-106) Total Protein 5.3 GM/DL (6.4-8.2) Albumin 2.1 GM/DL (3.4-5.0) Calcium Level 8.2 MG/DL (8.5-10.1) Magnesium Level 2.4 MG/DL (1.5-2.5) Alkaline Phosphatase 71 U/L (45-117) Aspartate Amino Transf (AST/SGOT) 48 U/L (15-37) Alanine Aminotransferase (ALT/SGPT) 17 U/L (10-53) Total Bilirubin 2.0 MG/DL (0.2-1.0) Sodium Level 140 MEQ/L (136-145) Potassium Level 3.0 MEQ/L (3.5-5.1) Chloride Level 104 MEQ/L (98-107) Carbon Dioxide Level 23.7 MEQ/L (21.0-32.0) Anion Gap 12 MEQ/L (5-15) Estimat Glomerular Filtration Rate 49 ML/MIN (>89) Test 07/01/17 00:18 07/01/17 04:00 07/02/17 04:00 Blood Urea Nitrogen 23 MG/DL (7-18) 23 MG/DL (7-18) 15 MG/DL (7-18) Creatinine 1.44 MG/DL (0.50-1.00) 1.34 MG/DL (0.50-1.00) 0.78 MG/DL (0.50-1.00) Random Glucose 112 MG/DL (74-106) 108 MG/DL (74-106) 102 MG/DL (74-106) Calcium Level 7.7 MG/DL (8.5-10.1) 8.0 MG/DL (8.5-10.1) 7.5 MG/DL (8.5-10.1) Phosphorus Level 2.8 MG/DL (2.5-4.9) Magnesium Level 2.6 MG/DL (1.5-2.5) Sodium Level 139 MEQ/L (136-145) 138 MEQ/L (136-145) 140 MEQ/L (136-145) Potassium Level 3.6 MEQ/L (3.5-5.1) 3.4 MEQ/L (3.5-5.1) 3.4 MEQ/L (3.5-5.1) Chloride Level 106 MEQ/L (98-107) 105 MEQ/L (98-107) 105 MEQ/L (98-107) Carbon Dioxide Level 23.6 MEQ/L (21.0-32.0) 22.7 MEQ/L (21.0-32.0) 26.4 MEQ/L (21.0-32.0) Anion Gap 9 MEQ/L (5-15) 10 MEQ/L (5-15) 9 MEQ/L (5-15) Estimat Glomerular Filtration Rate 45 ML/MIN (>89) 49 ML/MIN (>89) 91 ML/MIN (>89) White Blood Count 11.3 TH/MM3 (4.0-11.0) 12.8 TH/MM3 (4.0-11.0) Red Blood Count 4.37 MIL/MM3 (4.00-5.30) 3.60 MIL/MM3 (4.00-5.30) Hemoglobin 11.6 GM/DL (11.6-15.3) 9.7 GM/DL (11.6-15.3) Hematocrit 35.3 % (35.0-46.0) 29.2 % (35.0-46.0) Mean Corpuscular Volume 80.7 FL (80.0-100.0) 81.0 FL (80.0-100.0) Mean Corpuscular Hemoglobin 26.6 PG (27.0-34.0) 26.9 PG (27.0-34.0) Mean Corpuscular Hemoglobin Concent 33.0 % (32.0-36.0) 33.2 % (32.0-36.0) Red Cell Distribution Width 14.6 % (11.6-17.2) 14.8 % (11.6-17.2) Platelet Count 189 TH/MM3 (150-450) 195 TH/MM3 (150-450) Mean Platelet Volume 10.1 FL (7.0-11.0) 9.5 FL (7.0-11.0) Prothrombin Time 10.1 SEC (9.8-11.6) 9.8 SEC (9.8-11.6) Prothromb Time International Ratio 1.0 RATIO 1.0 RATIO Activated Partial Thromboplast Time 51.6 SEC (24.3-30.1) 44.6 SEC (24.3-30.1) Total Protein 5.1 GM/DL (6.4-8.2) 4.7 GM/DL (6.4-8.2) Albumin 1.5 GM/DL (3.4-5.0) 1.2 GM/DL (3.4-5.0) Alkaline Phosphatase 85 U/L (45-117) 78 U/L (45-117) Aspartate Amino Transf (AST/SGOT) 36 U/L (15-37) 32 U/L (15-37) Alanine Aminotransferase (ALT/SGPT) 17 U/L (10-53) 12 U/L (10-53) Total Bilirubin 1.7 MG/DL (0.2-1.0) 1.4 MG/DL (0.2-1.0) Lactic Acid Level 1.5 mmol/L (0.4-2.0) 0.7 mmol/L (0.4-2.0) Result Diagram: 07/02/17 0400 07/02/17 0400 Procedures 06/29: Exploratory laparotomy with application of VAC device 06/29: Exploratory laparotomy with lysis of adhesions, SMA embolectomy with patch angioplasty using bovine pericardium. 06/30: Exploratory laparotomy to evaluate recovery of small bowel. . Assessment and Plan Disease Oriented Problem List: (1) Congestive heart failure (CHF) (2) COPD (chronic obstructive pulmonary disease) (3) Occlusion of superior mesenteric artery (4) Acute bowel infarction Symptom Scale: (1) Abdominal pain 0-10 Scale: Unable to quantify (Intubated, sedated.) (2) Dyspnea and respiratory abnormalities 0-10 Scale: Unable to quantify (Intubated, sedated.) Pertinent Non-Medical Issues Psychosocial:Born in [place], she has 3 living children, per my discussion with her son Zia Rao. He also has a brother Jose Antonio Edward and a sister Moises Rao. Spiritual: Human Service Specialist available. Legal: She reportedly has 3 children who would be her legal decision makers unless advanced directive paperwork can be located. Ethical issues impacting care: None noted. . Important Contacts Son: Zia Rao Daughter: Elisa Valentin (Jalen) [phone] or [phone] (Elisa's ) Son: Jose Antonio Edward [phone] Prognosis This is a 61-year-old -[place] female with acute superior mesenteric artery thrombosis, now status post embolectomy with findings of ischemic bowel throughout most of the small intestine during exploratory laparotomy. Once embolectomy was performed, it was felt to be the patient's best chance at survival to allow a short time for reperfusion and then reevaluate to see if there had been any bowel recovery. She is at high risk for complications and per surgical notes has a high percentage of mortality from the ischemic event and, he further opines that she would not survive with a total small bowel resection. Her prognosis appears poor and she is at elevated risk of continued complications and decline. . Code Status: Full Code Plan PLAN: Legal decision maker:, Not capacitated for decision-making purposes. Pending receipt of advanced directive paperwork, per [place] statutes the legal decision makers would be the majority of her adult children, Zia Jose AntonioSeun. Patient is currently intubated and sedated. Goals: Aggressive at this time CODE STATUS: FULL CODE SYMPTOMS: * Pain: She had debilitating, exquisite pain presurgery and now post embolectomy remains with some discomfort, especially with abdominal palpation. She is at risk for continued pain due to bedbound status, invasive lines, open surgical incision, wound VAC. She has morphine 2 mg, q2h available. Last dose given at 20: 25 06/29. Sedation has been increased since yesterday to allow better vent synchrony. Patient exhibits no signs or symptoms of discomfort at rest. Does wince and grimace with light abdominal palpation or auscultation. * Dyspnea: Multifactorial to include pain, history of COPD and history of chronic systolic heart failure with EF less than, with some trace-mild tricuspid regurgitation noted 20%. She is currently receiving ventilator support at 35 % FiO2 and is tolerating with some tachypnea. In addition to the as needed morphine, she also has DuoNeb both scheduled and PRN. Given her fragile hemodynamic status, she is currently not a candidate for optimizing cardiac therapy with beta-blockers, MONALISA eyes or diuretics. Inotropic support was attempted family considering with milrinone, but patient became developed worsening hypotension and so that had to be discontinued. No further recommendations at this time. Compassionate withdrawal on Wednesday once family has had time to visit and last surgical evaluation has been completed. Palliative care will continue to follow the patient during hospital course as condition evolves, to assist patient/decision-maker with understanding of their medical conditions, weighing benefits/burdens of treatment options, for clarification of goals of treatment. Additionally will assist with any symptoms of palliative concern. . Shahnaz Romero CORPORATE DRIVER July 02, 2017 14:43
--- NOTE | 2017-07-02 15:16 | HHI.HCPN ---
Reason for visit a. To assist with evaluation and management of symptoms including: Pain, dyspnea b. To assist medical decision maker(s) with: better understanding of current medical conditions; weighing benefits/burdens of medical treatment options; making medical treatment decisions. Subjective/Interval History Patient seen today to follow up on symptoms of abdominal pain and dyspnea. Underwent another exploratory lap this morning to evaluate any possible small bowel recovery. Per report from the OR team, bowel continued to worsen with larger areas blackening and continued ischemia. She received paralytics and fentanyl during surgery, but is now awakening, winces with movement and any touch to the abdomen. Wound VAC remains intact. Dyspnea is controlled on mechanical ventilation with FiO2 30%. No accessory muscle use noted, no tachypnea. Intermittently breathing over the vent. Pending withdrawal of life support. . Family/friend interactions Spoke with patient's family today to include her brother, sisters, daughter and nephews. Reviewed clinical course, complications, findings of surgical evaluations and the opinion of the surgeons regarding her very poor prognosis. Reviewed the on viability of life without intestines and gently explored possible scenarios if family did not wish withdrawal. The patient's sister advised the family that she had spoken with her and the patient's mother whose opinion was that her daughter is suffering with her current medical condition and that withdrawal would be her choice. Other family members concurred with this. There were no dissenting opinions. Anticipatory guidance regarding compassionate withdrawal of life support was given. All questions were answered and it was the opinion of the daughter Elisa, that withdrawal of life support is the most appropriate option for her mother. I spoke with the son, Zia, by phone and he agreed that withdrawal would be his decision as well. Patient condition was reviewed with Dr. Rodriguez, the attending, and Dr. Uribe, from palliative care. Both agree that patient's prognosis is fatal regardless and family decision and that withdrawal would allow the patient comfort and be the kindest, most compassionate choice. . Advance Directives Living Will: Never completed Health Care Surrogate: Never completed Durable Power of Jewel Hole Driller: Never completed Advance Directive Specifics Date completed: No records available. . Health Care Surrogate(s): No records available. . Documented care wishes: No records available. . Objective Vital Signs Date Time Temp Pulse Resp B/P (MAP) Pulse Ox O2 Delivery O2 Flow Rate FiO2 07/02/17 08:00 98.9 87 13 132/62 (85) 100 07/02/17 08:00 30 07/02/17 07:38 100 30 07/02/17 06:13 90 118/57 07/02/17 06:00 92 07/02/17 04:00 99.1 92 13 94/60 (71) 100 07/02/17 04:00 30 07/02/17 04:00 92 07/02/17 03:36 100 30 07/02/17 02:00 104 07/02/17 01:01 100 30 07/02/17 00:00 111 07/02/17 00:00 30 07/02/17 00:00 98.6 111 14 100/88 (92) 100 07/01/17 22:00 96 07/01/17 20:21 100 30 07/01/17 20:00 115 07/01/17 20:00 98.9 115 16 92/65 (74) 100 07/01/17 20:00 30 07/01/17 18:00 110 07/01/17 16:50 121 85/57 07/01/17 16:40 100 30 07/01/17 16:00 107 07/01/17 16:00 98.5 107 14 87/62 (70) 100 07/01/17 16:00 30 Intake & Output 07/02/17 07/02/17 07:00 19:00 Intake Total 1550 ml 2231 ml Output Total 1300 ml 10 ml Balance 250 ml 2221 ml Intake IV Total 1550 ml 2181 ml Other 50 ml Output Urine Total 750 ml Gastric Drainage Total 350 ml Drainage Total 200 ml Estimated Blood Loss 10 ml # Bowel Movements 0 Physical Exam CONSTITUTIONAL/GENERAL: This is an adequately nourished patient, intubated, sedated, in no apparent distress. TUBES/LINES/DRAINS: Right IJ central line,, OG tube, Monreal, right radial line, left wrist PIV. SKIN: No jaundice, rashes, or lesions. No wounds seen anteriorly. Skin temperature appropriate. Not diaphoretic. HEAD: Atraumatic. Normocephalic. EYES: Pupils equal and round and reactive. Opens eyes to voice, mild stimuli. No scleral icterus. No injection or drainage. Fundi not examined. ENT: Hearing grossly normal. Nose without bleeding or purulent drainage. Throat without visible erythema, exudates, masses, or lesions. NECK: Trachea midline. Supple, nontender. No palpable thyroid enlargement or nodularity. CARDIOVASCULAR: S1, S2, tachycardic rate, regular rhythm, unable to auscultate murmur today. RESPIRATORY/CHEST: Symmetric, mildly labored respirations, when awakened. Clear to auscultation. Breath sounds equal bilaterally. No wheezes, rales, or rhonchi. GASTROINTESTINAL: Abdomen soft, tender, nondistended, wound VAC intact with abdominal binder. No auscultated bowel sounds. No guarding. GENITOURINARY: Without palpable bladder distension. Monreal catheter in place. MUSCULOSKELETAL: Extremities without clubbing, cyanosis, or edema. No joint tenderness or effusion noted. No calf tenderness. Feet warm with palpable pulses. LYMPHATICS: No palpable cervical or supraclavicular adenopathy. NEUROLOGICAL: Sedated, arousable, opens eyes to command. PSYCHIATRIC: Mildly anxious when aroused. . Diagnostic Tests Laboratory Laboratory Tests Test 06/29/17 15:45 06/29/17 17:00 06/29/17 22:55 06/30/17 04:30 Lactic Acid Level 3.5 mmol/L (0.4-2.0) 2.8 mmol/L (0.4-2.0) 2.8 mmol/L (0.4-2.0) Activated Partial Thromboplast Time 47.8 SEC (24.3-30.1) 58.4 SEC (24.3-30.1) 57.4 SEC (24.3-30.1) White Blood Count 12.4 TH/MM3 (4.0-11.0) Red Blood Count 4.78 MIL/MM3 (4.00-5.30) Hemoglobin 12.8 GM/DL (11.6-15.3) Hematocrit 39.3 % (35.0-46.0) Mean Corpuscular Volume 82.2 FL (80.0-100.0) Mean Corpuscular Hemoglobin 26.7 PG (27.0-34.0) Mean Corpuscular Hemoglobin Concent 32.5 % (32.0-36.0) Red Cell Distribution Width 14.5 % (11.6-17.2) Platelet Count 179 TH/MM3 (150-450) Mean Platelet Volume 9.6 FL (7.0-11.0) Prothrombin Time 11.5 SEC (9.8-11.6) Prothromb Time International Ratio 1.1 RATIO Blood Urea Nitrogen 19 MG/DL (7-18) Creatinine 1.33 MG/DL (0.50-1.00) Random Glucose 121 MG/DL (74-106) Total Protein 5.3 GM/DL (6.4-8.2) Albumin 2.1 GM/DL (3.4-5.0) Calcium Level 8.2 MG/DL (8.5-10.1) Magnesium Level 2.4 MG/DL (1.5-2.5) Alkaline Phosphatase 71 U/L (45-117) Aspartate Amino Transf (AST/SGOT) 48 U/L (15-37) Alanine Aminotransferase (ALT/SGPT) 17 U/L (10-53) Total Bilirubin 2.0 MG/DL (0.2-1.0) Sodium Level 140 MEQ/L (136-145) Potassium Level 3.0 MEQ/L (3.5-5.1) Chloride Level 104 MEQ/L (98-107) Carbon Dioxide Level 23.7 MEQ/L (21.0-32.0) Anion Gap 12 MEQ/L (5-15) Estimat Glomerular Filtration Rate 49 ML/MIN (>89) Test 07/01/17 00:18 07/01/17 04:00 07/02/17 04:00 Blood Urea Nitrogen 23 MG/DL (7-18) 23 MG/DL (7-18) 15 MG/DL (7-18) Creatinine 1.44 MG/DL (0.50-1.00) 1.34 MG/DL (0.50-1.00) 0.78 MG/DL (0.50-1.00) Random Glucose 112 MG/DL (74-106) 108 MG/DL (74-106) 102 MG/DL (74-106) Calcium Level 7.7 MG/DL (8.5-10.1) 8.0 MG/DL (8.5-10.1) 7.5 MG/DL (8.5-10.1) Phosphorus Level 2.8 MG/DL (2.5-4.9) Magnesium Level 2.6 MG/DL (1.5-2.5) Sodium Level 139 MEQ/L (136-145) 138 MEQ/L (136-145) 140 MEQ/L (136-145) Potassium Level 3.6 MEQ/L (3.5-5.1) 3.4 MEQ/L (3.5-5.1) 3.4 MEQ/L (3.5-5.1) Chloride Level 106 MEQ/L (98-107) 105 MEQ/L (98-107) 105 MEQ/L (98-107) Carbon Dioxide Level 23.6 MEQ/L (21.0-32.0) 22.7 MEQ/L (21.0-32.0) 26.4 MEQ/L (21.0-32.0) Anion Gap 9 MEQ/L (5-15) 10 MEQ/L (5-15) 9 MEQ/L (5-15) Estimat Glomerular Filtration Rate 45 ML/MIN (>89) 49 ML/MIN (>89) 91 ML/MIN (>89) White Blood Count 11.3 TH/MM3 (4.0-11.0) 12.8 TH/MM3 (4.0-11.0) Red Blood Count 4.37 MIL/MM3 (4.00-5.30) 3.60 MIL/MM3 (4.00-5.30) Hemoglobin 11.6 GM/DL (11.6-15.3) 9.7 GM/DL (11.6-15.3) Hematocrit 35.3 % (35.0-46.0) 29.2 % (35.0-46.0) Mean Corpuscular Volume 80.7 FL (80.0-100.0) 81.0 FL (80.0-100.0) Mean Corpuscular Hemoglobin 26.6 PG (27.0-34.0) 26.9 PG (27.0-34.0) Mean Corpuscular Hemoglobin Concent 33.0 % (32.0-36.0) 33.2 % (32.0-36.0) Red Cell Distribution Width 14.6 % (11.6-17.2) 14.8 % (11.6-17.2) Platelet Count 189 TH/MM3 (150-450) 195 TH/MM3 (150-450) Mean Platelet Volume 10.1 FL (7.0-11.0) 9.5 FL (7.0-11.0) Prothrombin Time 10.1 SEC (9.8-11.6) 9.8 SEC (9.8-11.6) Prothromb Time International Ratio 1.0 RATIO 1.0 RATIO Activated Partial Thromboplast Time 51.6 SEC (24.3-30.1) 44.6 SEC (24.3-30.1) Total Protein 5.1 GM/DL (6.4-8.2) 4.7 GM/DL (6.4-8.2) Albumin 1.5 GM/DL (3.4-5.0) 1.2 GM/DL (3.4-5.0) Alkaline Phosphatase 85 U/L (45-117) 78 U/L (45-117) Aspartate Amino Transf (AST/SGOT) 36 U/L (15-37) 32 U/L (15-37) Alanine Aminotransferase (ALT/SGPT) 17 U/L (10-53) 12 U/L (10-53) Total Bilirubin 1.7 MG/DL (0.2-1.0) 1.4 MG/DL (0.2-1.0) Lactic Acid Level 1.5 mmol/L (0.4-2.0) 0.7 mmol/L (0.4-2.0) Result Diagram: 07/02/1739907/02/17399 Procedures 06/29: Exploratory laparotomy with application of VAC device 06/29: Exploratory laparotomy with lysis of adhesions, SMA embolectomy with patch angioplasty using bovine pericardium. 06/30: Exploratory laparotomy to evaluate recovery of small bowel. . 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 He also has a brother Jose Antonio Edward and a sister Moises Rao. 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 Legal: She reportedly has 3 children who would be her legal decision makers unless advanced directive paperwork can be located. Ethical issues impacting care: None noted. . Important Contacts Son: Zia Rao Daughter: Elisa Valentin (Jalen) [phone] or [phone] (Elisa's ) Son: Jose Antonio Edward [phone] Prognosis This is a 61-year-old -[place] female with acute superior mesenteric artery thrombosis, now status post embolectomy with findings of ischemic bowel throughout most of the small intestine during exploratory laparotomy. Once embolectomy was performed, it was felt to be the patient's best chance at survival to allow a short time for reperfusion and then reevaluate to see if there had been any bowel recovery. She is at high risk for complications and per surgical notes has a high percentage of mortality from the ischemic event and, he further opines that she would not survive with a total small bowel resection. Her prognosis appears poor and she is at elevated risk of continued complications and decline. . Code Status: Alternative Code (Continue intubation until withdrawal consent signed then DNR) Plan PLAN: Legal decision maker:, Not capacitated for decision-making purposes. Pending receipt of advanced directive paperwork, per [place] statutes the legal decision makers would be the majority of her adult children, Jose Antonio Lizarraga and Reena. Patient is currently intubated and sedated. Goals: Aggressive at this time CODE STATUS: FULL CODE SYMPTOMS: * Pain: She had debilitating, exquisite pain presurgery and now post embolectomy remains with discomfort, especially with any abdominal touch, auscultation or manipulation. She is at risk for continued pain due to bedbound status, invasive lines, open surgical incision, wound VAC, repeated laparotomy, ischemic bowel. She remains on a fentanyl drip for pain management. Plan for withdrawal of life support when son arrives. * Dyspnea: Multifactorial to include pain, history of COPD and history of chronic systolic heart failure with EF less than, with some trace-mild tricuspid regurgitation noted 20%. She is currently receiving ventilator support at 30% FiO2 and is tolerating with some tachypnea. Compassionate withdrawal planned today once patient's son arrives. Palliative care will continue to follow the patient during hospital course as condition evolves, to assist patient/decision-maker with understanding of their medical conditions, weighing benefits/burdens of treatment options, for clarification of goals of treatment. Additionally will assist with any symptoms of palliative concern. . Shahnaz Romero July 02, 2017 3:16 pm
[2017-07-02] MEDS ORDERED: fentaNYL DRIP 250 ML IV PRN (16:00)
[2017-07-02] MEDS ORDERED: MORPHINE SULFATE 8 MG/ML INJ IV PUSH ONE (16:00)
[2017-07-02] MEDS ORDERED: MORPHINE SULFATE 4 MG/ML INJ IV PUSH SCH (16:00)
[2017-07-02] MEDS ORDERED: LORazepam 2 MG/ML VIAL IV PUSH ONE ×2 (16:00→16:15)
[2017-07-02] MEDS ORDERED: MORPHINE SULFATE 4 MG/ML INJ IV PUSH ONE (16:15)
[2017-07-02] MEDS ORDERED: MORPHINE SULFATE 4 MG/ML INJ IV PUSH PRN (16:30)
[2017-07-02] MEDS ORDERED: ACETAMINOPHEN 650 MG SUPP RECTAL PRN (16:30)
[2017-07-02] MEDS ORDERED: MORPHINE SULFATE 8 MG/ML INJ IV PUSH PRN (16:30)
[2017-07-02] MEDS ORDERED: HYOSCYAMINE 0.5 MG/ML AMP IV PUSH PRN (16:30)
[2017-07-02] MEDS ORDERED: LORazepam 2 MG/ML VIAL IV PUSH PRN ×3 (16:30)
[2017-07-02] MEDS ORDERED: BISACODYL 10 MG SUPP RECTAL PRN (16:30)
[2017-07-02] MEDS ORDERED: FUROSEMIDE 20 MG/2 ML VIAL IV PUSH PRN (16:30)
[2017-07-02] MEDS ORDERED: LORazepam 2 MG/ML VIAL IV PUSH SCH (17:00)
--- NOTE | 2017-07-02 17:56 | MP ---
cc: Chalino Dejesus MD, Joseph D MD DATE OF OPERATION: 07/02/2017 PREOPERATIVE DIAGNOSIS: Previous SMA thrombus with ischemic bowel. POSTOPERATIVE DIAGNOSIS: Previous SMA thrombus with ischemic bowel. Ischemia of all of the small bowel PROCEDURES PERFORMED: Exploratory laparotomy, evaluation of small bowel, change VAC dressing greater than 50 cm. ANESTHESIA: General. SURGEON: Dr. Chalino Dejesus INDICATIONS FOR PROCEDURE: This is an unfortunate lady who had an embolus in her SMA a few days ago. Embolectomy was performed by Dr. Sommer. This is a third operation and the second look to see the viability of her small bowel. PROCEDURE IN DETAIL: The patient is taken the operating room. She is already under anesthesia and had been intubated since her surgery. The VAC appliance is removed. We then explore the abdomen. The bowel has progressed with further necrosis, the entirety of the small bowel. About 8-10 cm from the ligament of Treitz it is slightly pink, but all of the small bowel all the way to the 2-4 cm from the terminal ileum are necrosed and does not appear viable. There is one small segment at 2-3 cm that may be viable. Because of the extensive nature of this necrosis of the small bowel, it is incompatible with life. The fluid that was there was suctioned out and the VAC appliance was reapplied. I had Dr. Avila, the vascular surgeon, come in and evaluate as well and he is in agreement. The patient returned to the intensive care unit. I talked to Dr. Norm Rodriguez, the critical care physician, and gave him an update. The family had already decided if there was no viable bowel then they would proceed with withdrawal of care. Chalino Dejesus MD JHEIDI/ , 05:34 PM , 05:55 PM EMILY
--- NOTE | 2017-07-02 19:01 | PD.CAR.PN ---
CVT Progress Note Subjective/Hospital Course: 06/30/[address] 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 Patient has a wound VAC and will go today to the operating room by Dr. Dejesus to assess the viability of the small intestine based on which patient will have or not have some of the intestine resected If needed I will be available to assist with the vascular portion of the procedure As far as intensive care parameters are concerned patient this point is hemodynamically stable on small dose Levophed and does not appear to be acidotic. Good PO2 FiO2 gradient Patient underwent today exploratory laparotomy by Dr. Dejesus and I came to the room to evaluate the intestine in the blood flow Patient has excellent dopplerable brisk pulse and superior mesenteric artery and even in distal mesentery next to the intestine. SMA is completely open and saw the branches Unfortunately patient has large amount of very ischemic intestine which has not demarcated completely yet so we jointly decided to avoid any resection at this time, place another wound VAC and get a second look tomorrow 07/01/2017 Abdomen remains soft Superior mesenteric artery was clearly patent at the surgical exploration yesterday and the blood flow into the mesentery is currently intact Unfortunately patient has ischemic changes of the small bowel that are beyond salvage in large portions of the small bowel although not completely demarcated yet so I agree with decision by Dr. Dejesus not to resect anything yesterday and do another third look procedure today or tomorrow Nothing further to add from vascular point 07/02/2017 Patient had abdominal exploration today I agree with Dr. Dejesus that at this point there is no reasonable chance of meaningful recovery and this patient has irreversibly devitalized small intestine unfortunately non-compatible with life There is nothing we can do but this tragic outcome and hospice consult is recommended Objective: Vital Signs Date Time Temp Pulse Resp B/P (MAP) Pulse Ox O2 Delivery O2 Flow Rate FiO2 07/02/17 18:00 120 07/02/17 16:00 98.2 91 13 100 101/62 (75) 07/02/17 16:00 30 07/02/17 16:00 90 07/02/17 15:24 89 110/64 07/02/17 14:00 91 07/02/17 12:00 30 07/02/17 12:00 88 07/02/17 12:00 98.2 90 13 100 111/56 (74) 07/02/17 11:00 100 100 07/02/17 10:00 85 07/02/17 08:00 87 07/02/17 08:00 98.9 87 13 132/62 (85) 100 07/02/17 08:00 30 07/02/17 07:38 100 30 07/02/17 06:13 90 118/57 07/02/17 06:00 92 07/02/17 04:00 99.1 92 13 94/60 (71) 100 07/02/17 04:00 30 07/02/17 04:00 92 07/02/17 03:36 100 30 07/02/17 02:00 104 07/02/17 01:01 100 30 07/02/17 00:00 111 07/02/17 00:00 30 07/02/17 00:00 98.6 111 14 100/88 (92) 100 07/01/17 22:00 96 07/01/17 20:21 100 30 07/01/17 20:00 115 07/01/17 20:00 98.9 115 16 92/65 (74) 100 07/01/17 20:00 30 Result Diagram: 07/02/17 0400 07/02/17 0400 Marialuisa Avila MD July 02, 2017 19:01
== END 2017-07-02 22:20 | disposition expired | DRG 853 ==
LOC: NEPC 16:51 → NEDA 21:38 → N03B 06-29 01:17
PROVIDERS: ADMIT Internal Medicine Critical Care Medicine; ATTEND Internal Medicine Critical Care Medicine
PROC: 0WJP0ZZ Inspection of Gastrointestinal Tract, Open Approach (ICD-10-PCS; principal; 2017-06-29)
PROC: 5A1945Z Respiratory Ventilation, 24-96 Consecutive Hours (ICD-10-PCS; 2017-06-29)
PROC: 04C50ZZ Extirpation of Matter from Superior Mesenteric Artery, Open Approach (ICD-10-PCS; 2017-06-29)
PROC: 04U50KZ Supplement Superior Mesenteric Artery with Nonautologous Tissue Substitute, Open Approach (ICD-10-PCS; 2017-06-29)
PROC: 0BH17EZ Insertion of Endotracheal Airway into Trachea, Via Natural or Artificial Opening (ICD-10-PCS; 2017-06-29)
PROC: 0WJP0ZZ Inspection of Gastrointestinal Tract, Open Approach (ICD-10-PCS; 2017-06-30)
PROC: 0WJP0ZZ Inspection of Gastrointestinal Tract, Open Approach (ICD-10-PCS; 2017-07-02)
DX: A41.9 Sepsis, unspecified organism (principal); K55.022 Diffuse acute infarction of small intestine; R65.21 Severe sepsis with septic shock; J96.01 Acute respiratory failure with hypoxia; J96.02 Acute respiratory failure with hypercapnia; G93.41 Metabolic encephalopathy; E43 Unspecified severe protein-calorie malnutrition; N17.9 Acute kidney failure, unspecified; E86.9 Volume depletion, unspecified; I50.22 Chronic systolic (congestive) heart failure; E87.2 Acidosis; I42.9 Cardiomyopathy, unspecified; I11.0 Hypertensive heart disease with heart failure; F32.9 Major depressive disorder, single episode, unspecified; F41.9 Anxiety disorder, unspecified; J44.9 Chronic obstructive pulmonary disease, unspecified; R00.0 Tachycardia, unspecified; K21.9 Gastro-esophageal reflux disease without esophagitis; Z51.5 Encounter for palliative care; Z66 Do not resuscitate; I07.1 Rheumatic tricuspid insufficiency; R73.9 Hyperglycemia, unspecified; Z85.3 Personal history of malignant neoplasm of breast; Z79.82 Long term (current) use of aspirin; Z92.21 Personal history of antineoplastic chemotherapy; Z92.3 Personal history of irradiation; Z91.19 Patient's noncompliance with other medical treatment and regimen; Z87.891 Personal history of nicotine dependence
CPT/HCPCS: 71045; 74018; 74177; 80048; 80053; 81001; 82550; 82805; 83605; 83690; 83735; 84100; 84484; 85007; 85025; 85027; 85610; 85730; 86140; 86850; 86900; 86901; 86920; 87040; 87641; 93005; 93306; 94002; 94003; 94640; 94664; 96361; 96372; 96374; 96375; 96376; C1757; C1765; C1768; J0131; J0330; J0500; J0610; J0690; J0744; J0780; J1170; J1644; J1940; J2060; J2250; J2260; J2270; J2370; J2543; J2765; J3010; J3370; J3475; J3480; J7030; J7040; J7050; J7060; J7120; P9045; Q9967